=== PATIENT | male | born 1955 | race African-American/Black ===

== ENCOUNTER → 2017-03-14 | Outpatient (CLI) | payer OTHER ==
--- NOTE | 2017-03-14 11:44 | RAD ---
Examination: X-rays of the left hand. Clinical history: Pain in both hands. Technique: Three views of the left hand were obtained. Comparison: None available. Findings: No acute fracture, dislocation, or destructive bony lesion is noted. Moderate to severe osteoarthritic changes are noted at the 1st carpometacarpal joint. No soft tissue abnormality is noted. Impression: 1. No acute fracture or dislocation. 2. Moderate to severe osteoarthritic changes are noted at the 1st carpometacarpal joint. Reported By:
--- NOTE | 2017-03-14 11:45 | RAD ---
Examination: X-rays of the right hand. Clinical history: Pain in both hands. Technique: Three views of the right hand were obtained. Comparison: None available. Findings: No acute fracture, dislocation, or destructive bony lesion is noted. No arthropathy is noted. No soft tissue abnormality is noted. Impression: 1. Negative x-rays of the right hand. Reported By:
== END ==
LOC: RAD 10:10
PROVIDERS: ATTEND Internal Medicine
DX: Z02.71 Encounter for disability determination (principal)
CPT/HCPCS: 73130

== ENCOUNTER 2020-01-06 13:36 | Inpatient (IN) ==
[2020-01-06] MEDS ORDERED: ZOFRAN INJ 4 MG VIAL IVP PRN (14:05)
--- NOTE | 2020-01-06 16:17 | DR.H&P ---
H&P - History & Physical for Day of: H&P Date: 01/06/20 - Chief Complaint Chief Complaint: WEAKNESS, DIZZINESS, KAISER, DIFFICULTY SWALLOWING, WEIGHT LOSS - History of Present Illness History of Present Illness: PT IS 64 WM DIRECT ADMIT FROM DR GEOVANY DAVISON OFFICE WITH CO SYMPTOMATIC ANEMIA, KAISER, DIZZINESS, DYPHAGIA. PT HAS HAD CO UNINTENTIONAL WEIGHT LOSS, POOR APPETITE, CHOKING WHEN EATING. PT CO SEVERE DIZZINESS. PT HAD HGB 8.7 ON ANEMIA PANEL AND STARTED ON PPI THERAPY BID. PT HAS PMH OF HTN, BPH. PT ADMITTED FOR TREATMENT OF SYMPTOMATIC ANEMIA, DYSPHAGIA, WEAKNESS. - Past Medical History Past Medical History: Anxiety, GERD, Hypertension - Past Surgical History Surgical History: No History - Social History Does patient currently use any type of tobacco product: No Have you used tobacco products in the last 12 months: No Type of Tobacco Use: Cigarettes (6 CIGARETTES PER DAY) Does any household member use tobacco: No Alcohol Use: Occasionally Drug Use: None Risks, benefits, and alternatives of opioids discussed: Yes Prescription drug monitoring program results: PDMP reviewed and no concerns identified - Medications Home Medications: No Known Drug Allergies Allergy (Verified 01/06/20 16:12) CONTINUE taking the following medications aspirin [Aspir-81] 81 mg PO DAILY 01/06/20 [History] atorvastatin [Lipitor] 20 mg PO DAILY 01/06/20 [History] carvedilol 3.125 mg PO BID 01/06/20 [History] glucosamine-chondroitin [Osteo Bi-Flex] 2 tab PO DAILY 01/06/20 [History] lisinopril-hydrochlorothiazide [Zestoretic] 1 tab PO DAILY 01/06/20 [History] pantoprazole [Protonix] 40 mg PO HS 01/06/20 [History] - Review of Systems Constitutional: Weakness, Malaise Eyes: No Symptoms Reported ENT: No Symptoms Reported Respiratory: SOB with Excertion Cardiovascular: No Symptoms Reported Gastrointestinal: Nausea, Vomiting, Other (CHOKING, DIFFICULTY SWALLOWING) Genitourinary: No Symptoms Reported Skin: No Symptoms Reported Neurological: Weakness, Other (DIZZINESS) Oriented: Normal Eyes: Normal Ear: Normal Nose: Normal Throat: Dry Respiratory: RLL Diminished, LLL Diminished Cardiovascular: Normal. negative: Edema : Normal Auscultation: Bowel Sounds: Normal Palpation: Normal Tenderness: Epigastric Skin: Decreased Turgur Musculoskeletal: Back:Lumbar Psychiatric: Normal Mood Description: Calm Speech Pattern: Clear, Appropriate - Assessment/Plan (1) Symptomatic anemia Status: Acute Plan: ADMIT, TYPE AND CROSS MATCH, OCCULT STOOL. ADMISSION LABS CBC CMP UA. ANEMIA PANEL OBTAINED IN OFFICE LAST WEEK. EKG AND CXR ON ADMISSION. CT ABD PELVIS WITH CONTRAST, NPO AFTER MIDNIGHT. GI CONSULT, HOLD ASA AND NSAIDS. PROTONIX IV BID (2) Dysphagia Status: Acute (3) Unintentional weight loss Status: Acute (4) Hypertension Status: Acute (5) BPH (benign prostatic hyperplasia) Status: Acute - Allergies Allergies/Adverse Reactions: Allergies Allergy/AdvReac Type Severity Reaction Status Date / Time No Known Drug Allergies Allergy Verified 01/06/20 16:12
[2020-01-06 16:23] LABS: BASOPHILS % (AUTO) 0.7 % (0.2-1.0); EOSINOPHILS # (AUTO) 0.2 x10^3/uL (0.0-0.2); EOSINOPHILS % (AUTO) 2.9 % (0.9-2.9); HEMATOCRIT 23.5 % (42.0-54.0); HEMOGLOBIN 7.9 g/dL (13.5-18.0); LYMPHOCYTES # (AUTO) 0.9 X10^3/uL (1.3-2.9); LYMPHOCYTES % (AUTO) 16.8 % (21.0-51.0); MEAN CORPUSCULAR HEMOGLOBIN 30.8 pg (27.0-34.0); MEAN CORPUSCULAR HGB CONC 33.7 g/dL (33.0-35.0); MEAN CORPUSCULAR VOLUME 91.5 fL (80.0-100.0); MEAN PLATELET VOLUME 8.2 fL (7.4-11.0); MONOCYTES # (AUTO) 0.3 x10^3/uL (0.3-0.8); NEUTROPHILS # (AUTO) 4.1 x10^3/uL (2.2-4.8); NEUTROPHILS % (AUTO) 74.6 % (42.0-75.0); PLATELET COUNT 220 X10^3/uL (150.0-450.0); RED BLOOD COUNT 2.57 X10^6/uL (4.7-6.0); RED CELL DISTRIBUTION WIDTH 16.5 % (11.6-16.5); WHITE BLOOD COUNT 5.5 X10^3/uL (3.6-10.0)
[2020-01-06 16:31] LABS: ALANINE AMINOTRANSFERASE 27 Units/L (12-78); ALBUMIN 3.7 g/dL (3.4-5.0); ALKALINE PHOSPHATASE 65 Units/L (46-116); ASPARTATE AMINO TRANSFERASE 37 Units/L (15-37); BLOOD UREA NITROGEN 21 mg/dL (7-18); CALCIUM 9.2 mg/dL (8.5-10.1); CARBON DIOXIDE 23.2 mmol/L (21-32); CHLORIDE 104 mmol/L (98-107); COR NA(FOR HYPERGLY) 136 mmol/L (136-145); CREATININE 1.78 mg/dL (0.70-1.30); SODIUM 135 mmol/L (136-145); TOTAL PROTEIN 9.8 g/dL (6.4-8.2); eGFR NON BLACK RACES 41 (>60)
[2020-01-06 16:41] LABS: HYPOCHROMASIA SLIGHT; PLATELET MORPHOLOGY COMMENT NORMAL (NORMAL)
[2020-01-06] MEDS ORDERED: NS 500 ML IV 500 ML IV ONE (16:47)
[2020-01-06] MEDS ORDERED: DULCOLAX SUPPOSITORY 10 MG RECTAL ONE (17:08)
--- NOTE | 2020-01-06 17:11 | DR.CONSULT ---
Consult - Consultation for Day of: Date: 01/06/20 - Chief Complaint Chief Complaint: Patient referred for anemia.Patient with complaints of constipation. - History of Present Illness History of Present Illness: Patient is a 64 yo male who was referred for anemia.Patient with complaints of constipation last BM on monday that he had to force out. Patient denies dysphagia, dyspepsia, nausea, vomiting, abdominal pain, diarrhea, melena and hematochezia. Patient had a colon [address] Cintron for routine screening. has never had an EGD. hgb 7.9, hct 23.5, Plt 220, BUN 21, Creatinine 1.78 - Past Medical History Past Medical History: Anxiety, Coronary Artery Disease, GERD, Hypertension - Past Surgical History Surgical History: No History - Social History Does patient currently use any type of tobacco product: No Have you used tobacco products in the last 12 months: No Type of Tobacco Use: Cigarettes (4 CIGARETTES PER DAY) Does any household member use tobacco: No Alcohol Use: DAILY ( 1 beer a day) Drug Use: None - Medications Home Medications: No Known Drug Allergies Allergy (Verified 01/06/20 16:12) CONTINUE taking the following medications aspirin [Aspir-81] 81 mg PO DAILY 01/06/20 [History] atorvastatin [Lipitor] 20 mg PO DAILY 01/06/20 [History] carvedilol 3.125 mg PO BID 01/06/20 [History] glucosamine-chondroitin [Osteo Bi-Flex] 2 tab PO DAILY 01/06/20 [History] lisinopril-hydrochlorothiazide [Zestoretic] 1 tab PO DAILY 01/06/20 [History] pantoprazole [Protonix] 40 mg PO HS 01/06/20 [History] - Review of Systems Gastrointestinal: See HPI, Constipation. denies: Nausea, Vomiting, Abdominal Pain, Diarrhea, Melena, Hematochezia, Other Oriented: Normal Eyes: Normal Ear: Normal Nose: Normal Throat: Normal Respiratory: Clear Throughout Cardiovascular: Normal Auscultation: Bowel Sounds: Normal Palpation: Normal, Other (no distention). negative: Spleen Enlarged, Liver Enlarged, Mass Pulsatile Tenderness: Normal (non tender) Skin: Normal Musculoskeletal: Normal Psychiatric: Normal Mood Description: Calm Affect: Normal Speech Pattern: Clear, Appropriate - Plan Plan: Assessment. 1. Anemia r/o GI loss. 2. Constipation. Plan. 1. Monitor Hgb, Transfuse as needed, EGD tomorrow colon on , cont protonix. 2. Dulcolax Supp. Plan reviewed with Dr. Marte - Allergies Allergies/Adverse Reactions: Allergies Allergy/AdvReac Type Severity Reaction Status Date / Time No Known Drug Allergies Allergy Verified 01/06/20 16:12
--- NOTE | 2020-01-06 17:19 | RAD ---
HISTORYACUTE ON CHRONIC SOBSTUDYCHEST, PA/LAT ADULTCOMPARISONNoneFINDINGSThe trachea is midline. The cardiac silhouette is unremarkable . The lungs are well expanded without focal infiltrate or effusion. The aortic knob is partially calcified.IMPRESSIONNo acute cardiopulmonary disease.Electronically signed by: ELLA LANGFORD (Jan 06, 2020 17:17:15)
[2020-01-06] MEDS: PROTONIX INJ 40 MG VIAL IVP SCH ×2 (17:24→20:32)
[2020-01-06] MEDS: NS 1000 ML 1,000 ML IV SCH (17:24)
[2020-01-06] MEDS ORDERED: DULCOLAX SUPPOSITORY 10 MG ONE (17:26)
[2020-01-06] MEDS ORDERED: PROVENTIL NEB TX 0.083% 2.5MG/ 3ML NEB PRN (17:35)
[2020-01-06 17:46] VITALS: BMI 19.4
[2020-01-06 18:34] LABS: BILIRUBIN,URINE NEGATIVE (NEGATIVE); BLOOD/HEMOGLOBIN,URINE NEGATIVE (NEGATIVE); GLUCOSE, URINE NEGATIVE (NEGATIVE); KETONES,URINE NEGATIVE (NEGATIVE); LEUKOCYTE ESTERASE ,URINE NEGATIVE (NEGATIVE); NITRITES,URINE NEGATIVE (NEGATIVE); PROTEIN,URINE 1+ (NEGATIVE); UROBILINOGEN,URINE NORMAL (NORMAL)
[2020-01-06 18:48] LABS: APPEARANCE,URINE CLEAR (CLEAR); COLOR,URINE YELLOW (YELLOW)
[2020-01-06 19:36] LABS: AMORPHOUS SEDIMENT,UR TRACE /HPF (NEGATIVE); BACTERIA,URINE NEGATIVE /HPF (NEGATIVE); RBC,URINE 0-2 /HPF (0-3); SQUAMOUS EPITHELIAL CELL,UR RARE /HPF (NEGATIVE)
[2020-01-06] MEDS: COREG TAB 3.125 MG PO SCH (20:32)
[2020-01-06] MEDS: BENADRYL INJ 50 MG VIAL IVP PRN (21:03)
[2020-01-06] MEDS: TYLENOL 325 MG TAB PO PRN (21:03)
--- NOTE | 2020-01-06 21:21 | CT ---
ABDOMEN/PELVIS WITH CONHISTORY: Abdominal pain and weight lossComparison:NoneTechnique:Multiple axial images of the abdomen and pelvis were obtained from the lung bases to the pubic symphysis following the administration of IV contrast. Dose reduction techniques including Automated Exposure Control (AEC) and adjustment of mA and kV were utlized.Findings:The heart is normal in size. There is no pericardial effusion. Fibrosis of the lung bases.Liver and spleen are normal in size, enhancement characteristics and contour. No focal lesions. The portal vein is patent. No ductal dilitation. Gallbladder is present. No calcified gallstones or gallbladder wall thickening. The pancreas is unremarkable. Adrenal glands are normal. Kidneys enhance symmetrically without hydronephrosis or nephrolithiasis.No bowel obstruction or inflammation. Normal appendix. No abnormal appearing mesenteric or retroperitoneal lymph nodes. . No free fluid or fluid collections. Liquid stool can be seen throughout the colon.The bladder is normal in appearance. Prostate unremarkable. No free fluid or abnormal pelvic lymph nodes.No aggressive osseous lesions.IMPRESSION:1. Liquid stool in the colon consistent with diarrheal illness. Correlate clinically.Electronically signed by: ALBA LOVING (Jan 06, 2020 21:19:14)
[2020-01-07 01:26] LABS: HEMATOCRIT 25.4 % (42.0-54.0); HEMOGLOBIN 8.4 g/dL (13.5-18.0)
[2020-01-07] MEDS: NS 1000 ML 1,000 ML IV SCH ×2 (05:17→20:22)
[2020-01-07 06:09] LABS: BASOPHILS % (AUTO) 0.6 % (0.2-1.0); EOSINOPHILS # (AUTO) 0.1 x10^3/uL (0.0-0.2); EOSINOPHILS % (AUTO) 3.6 % (0.9-2.9); HEMATOCRIT 24.1 % (42.0-54.0); HEMOGLOBIN 8.2 g/dL (13.5-18.0); LYMPHOCYTES # (AUTO) 1.6 X10^3/uL (1.3-2.9); LYMPHOCYTES % (AUTO) 40.6 % (21.0-51.0); MEAN CORPUSCULAR HEMOGLOBIN 30.2 pg (27.0-34.0); MEAN CORPUSCULAR HGB CONC 33.9 g/dL (33.0-35.0); MEAN PLATELET VOLUME 8.1 fL (7.4-11.0); MONOCYTES # (AUTO) 0.4 x10^3/uL (0.3-0.8); MONOCYTES % (AUTO) 9.6 % (0.0-13.0); NEUTROPHILS # (AUTO) 1.8 x10^3/uL (2.2-4.8); NEUTROPHILS % (AUTO) 45.6 % (42.0-75.0); PLATELET COUNT 174 X10^3/uL (150.0-450.0); RED BLOOD COUNT 2.71 X10^6/uL (4.7-6.0); RED CELL DISTRIBUTION WIDTH 16.7 % (11.6-16.5); WHITE BLOOD COUNT 3.9 X10^3/uL (3.6-10.0)
[2020-01-07 06:21] LABS: ALANINE AMINOTRANSFERASE 25 Units/L (12-78); ALBUMIN 3.2 g/dL (3.4-5.0); ALKALINE PHOSPHATASE 55 Units/L (46-116); ASPARTATE AMINO TRANSFERASE 31 Units/L (15-37); BLOOD UREA NITROGEN 18 mg/dL (7-18); CALCIUM 8.3 mg/dL (8.5-10.1); CARBON DIOXIDE 21.2 mmol/L (21-32); CHLORIDE 104 mmol/L (98-107); COR CA(FOR HYPOALB) 8.9 mg/dL (8.5-10.1); CREATININE 1.78 mg/dL (0.70-1.30); SODIUM 135 mmol/L (136-145); TOTAL PROTEIN 8.7 g/dL (6.4-8.2); eGFR NON BLACK RACES 41 (>60)
[2020-01-07] MEDS: PROTONIX INJ 40 MG VIAL IVP SCH ×2 (08:10→20:22)
[2020-01-07] MEDS ORDERED: STERILE WATER IRRIGATION IR ONE (10:31)
[2020-01-07] MEDS ORDERED: DIPRIVAN VIAL 20 ML ONE (13:28)
[2020-01-07] MEDS ORDERED: XYLOCAINE-MPF 1% ONE (13:28)
[2020-01-07] MEDS: COREG TAB 3.125 MG PO SCH ×2 (14:49→20:22)
[2020-01-07] MEDS: LIPITOR TAB 20 MG PO SCH (14:49)
[2020-01-07] MEDS ORDERED: NS 500 ML IV 500 ML IV ONE (18:12)
[2020-01-07] MEDS: BENADRYL INJ 50 MG VIAL IVP PRN (23:37)
[2020-01-07] MEDS: TYLENOL 325 MG TAB PO PRN (23:37)
[2020-01-08 06:46] LABS: BASOPHILS % (AUTO) 0.6 % (0.2-1.0); EOSINOPHILS # (AUTO) 0.2 x10^3/uL (0.0-0.2); EOSINOPHILS % (AUTO) 5.5 % (0.9-2.9); HEMATOCRIT 29.2 % (42.0-54.0); LYMPHOCYTES % (AUTO) 24.8 % (21.0-51.0); MEAN CORPUSCULAR HEMOGLOBIN 30.9 pg (27.0-34.0); MEAN CORPUSCULAR HGB CONC 34.2 g/dL (33.0-35.0); MEAN CORPUSCULAR VOLUME 90.2 fL (80.0-100.0); MEAN PLATELET VOLUME 7.7 fL (7.4-11.0); MONOCYTES # (AUTO) 0.3 x10^3/uL (0.3-0.8); MONOCYTES % (AUTO) 8.5 % (0.0-13.0); NEUTROPHILS # (AUTO) 2.5 x10^3/uL (2.2-4.8); NEUTROPHILS % (AUTO) 60.6 % (42.0-75.0); PLATELET COUNT 157 X10^3/uL (150.0-450.0); RED BLOOD COUNT 3.24 X10^6/uL (4.7-6.0); RED CELL DISTRIBUTION WIDTH 16.4 % (11.6-16.5); WHITE BLOOD COUNT 4.1 X10^3/uL (3.6-10.0)
[2020-01-08 07:08] LABS: ALANINE AMINOTRANSFERASE 19 Units/L (12-78); ALBUMIN 3.1 g/dL (3.4-5.0); ALKALINE PHOSPHATASE 50 Units/L (46-116); ASPARTATE AMINO TRANSFERASE 29 Units/L (15-37); BLOOD UREA NITROGEN 13 mg/dL (7-18); CALCIUM 8.4 mg/dL (8.5-10.1); CARBON DIOXIDE 21.9 mmol/L (21-32); CHLORIDE 107 mmol/L (98-107); COR CA(FOR HYPOALB) 9.1 mg/dL (8.5-10.1); CREATININE 1.58 mg/dL (0.70-1.30); SODIUM 139 mmol/L (136-145); TOTAL PROTEIN 8.2 g/dL (6.4-8.2); eGFR NON BLACK RACES 47 (>60)
[2020-01-08] MEDS: LIPITOR TAB 20 MG PO SCH (09:44)
[2020-01-08] MEDS: COREG TAB 3.125 MG PO SCH ×2 (09:44→21:20)
[2020-01-08] MEDS: PROTONIX INJ 40 MG VIAL IVP SCH ×2 (09:44→21:20)
[2020-01-08] MEDS: DULCOLAX TAB EC 5 MG PO SCH ×2 (09:45→21:19)
[2020-01-08] MEDS: TYLENOL 325 MG TAB PO PRN ×3 (09:51→21:20)
[2020-01-08] MEDS: NS 1000 ML 1,000 ML IV SCH ×3 (10:58→23:56)
[2020-01-08] MEDS ORDERED: MIRALAX POWDER (255 GRAMS BTL) PO NR (15:00)
[2020-01-08] MEDS ORDERED: DULCOLAX TAB EC 5 MG PO SCH (21:00)
[2020-01-09 06:46] LABS: BASOPHILS % (AUTO) 0.5 % (0.2-1.0); EOSINOPHILS # (AUTO) 0.2 x10^3/uL (0.0-0.2); EOSINOPHILS % (AUTO) 5.3 % (0.9-2.9); HEMATOCRIT 32.2 % (42.0-54.0); HEMOGLOBIN 10.8 g/dL (13.5-18.0); LYMPHOCYTES % (AUTO) 26.1 % (21.0-51.0); MEAN CORPUSCULAR HEMOGLOBIN 30.2 pg (27.0-34.0); MEAN CORPUSCULAR HGB CONC 33.5 g/dL (33.0-35.0); MEAN CORPUSCULAR VOLUME 90.1 fL (80.0-100.0); MEAN PLATELET VOLUME 7.8 fL (7.4-11.0); MONOCYTES # (AUTO) 0.4 x10^3/uL (0.3-0.8); MONOCYTES % (AUTO) 10.8 % (0.0-13.0); NEUTROPHILS # (AUTO) 2.3 x10^3/uL (2.2-4.8); NEUTROPHILS % (AUTO) 57.3 % (42.0-75.0); PLATELET COUNT 158 X10^3/uL (150.0-450.0); RED BLOOD COUNT 3.57 X10^6/uL (4.7-6.0); RED CELL DISTRIBUTION WIDTH 16.2 % (11.6-16.5)
[2020-01-09 07:03] LABS: ALANINE AMINOTRANSFERASE 17 Units/L (12-78); ALBUMIN 3.2 g/dL (3.4-5.0); ALKALINE PHOSPHATASE 55 Units/L (46-116); ASPARTATE AMINO TRANSFERASE 32 Units/L (15-37); BLOOD UREA NITROGEN 11 mg/dL (7-18); CALCIUM 8.6 mg/dL (8.5-10.1); CARBON DIOXIDE 16.2 mmol/L (21-32); CHLORIDE 108 mmol/L (98-107); COR CA(FOR HYPOALB) 9.2 mg/dL (8.5-10.1); CREATININE 1.57 mg/dL (0.70-1.30); SODIUM 137 mmol/L (136-145); TOTAL PROTEIN 8.8 g/dL (6.4-8.2); eGFR NON BLACK RACES 47 (>60)
[2020-01-09] MEDS ORDERED: DIPRIVAN VIAL 20 ML ONE (09:41)
[2020-01-09] MEDS ORDERED: STERILE WATER IRRIGATION IR ONE (10:58)
[2020-01-09] MEDS: COREG TAB 3.125 MG PO SCH ×2 (11:53→21:28)
[2020-01-09] MEDS: PROTONIX INJ 40 MG VIAL IVP SCH ×2 (11:54→21:31)
[2020-01-09] MEDS: LIPITOR TAB 20 MG PO SCH (11:54)
[2020-01-09] MEDS: DULCOLAX TAB EC 5 MG PO SCH ×2 (11:55→21:28)
[2020-01-09] MEDS: NS 1000 ML 1,000 ML IV SCH (15:39)
[2020-01-09] MEDS: NICOTINE PATCH TD SCH (18:05)
[2020-01-09] MEDS: TYLENOL 325 MG TAB PO PRN (21:30)
[2020-01-10 06:22] LABS: BASOPHILS % (AUTO) 0.4 % (0.2-1.0); EOSINOPHILS # (AUTO) 0.2 x10^3/uL (0.0-0.2); EOSINOPHILS % (AUTO) 3.8 % (0.9-2.9); HEMATOCRIT 31.9 % (42.0-54.0); HEMOGLOBIN 10.7 g/dL (13.5-18.0); LYMPHOCYTES # (AUTO) 1.1 X10^3/uL (1.3-2.9); MEAN CORPUSCULAR HEMOGLOBIN 30.2 pg (27.0-34.0); MEAN CORPUSCULAR HGB CONC 33.6 g/dL (33.0-35.0); MEAN PLATELET VOLUME 8.6 fL (7.4-11.0); MONOCYTES # (AUTO) 0.3 x10^3/uL (0.3-0.8); MONOCYTES % (AUTO) 5.8 % (0.0-13.0); NEUTROPHILS # (AUTO) 3.8 x10^3/uL (2.2-4.8); PLATELET COUNT 161 X10^3/uL (150.0-450.0); RED BLOOD COUNT 3.55 X10^6/uL (4.7-6.0); RED CELL DISTRIBUTION WIDTH 16.4 % (11.6-16.5); WHITE BLOOD COUNT 5.5 X10^3/uL (3.6-10.0)
[2020-01-10 06:42] LABS: ALANINE AMINOTRANSFERASE 22 Units/L (12-78); ALKALINE PHOSPHATASE 56 Units/L (46-116); ASPARTATE AMINO TRANSFERASE 31 Units/L (15-37); BLOOD UREA NITROGEN 12 mg/dL (7-18); CALCIUM 8.1 mg/dL (8.5-10.1); CARBON DIOXIDE 18.3 mmol/L (21-32); CHLORIDE 107 mmol/L (98-107); COR CA(FOR HYPOALB) 8.9 mg/dL (8.5-10.1); CREATININE 1.78 mg/dL (0.70-1.30); SODIUM 138 mmol/L (136-145); TOTAL PROTEIN 8.3 g/dL (6.4-8.2); eGFR NON BLACK RACES 41 (>60)
[2020-01-10] MEDS: NICOTINE PATCH TD SCH (09:26)
[2020-01-10] MEDS: DULCOLAX TAB EC 5 MG PO SCH ×2 (09:27→20:23)
[2020-01-10] MEDS: LIPITOR TAB 20 MG PO SCH (09:27)
[2020-01-10] MEDS: COREG TAB 3.125 MG PO SCH ×2 (09:27→20:23)
[2020-01-10] MEDS: PROTONIX INJ 40 MG VIAL IVP SCH ×2 (09:27→20:23)
--- NOTE | 2020-01-10 14:58 | RAD ---
HISTORYFellSTUDYLumbar spine three viewsCOMPARISONNoneFINDINGSNormal curvature, segmentation and alignment. There is no evidence for fracture, subluxation, pedicle erosion or sacroiliac abnormality. There are small marginal osteophytes at several disc levels. Increased sclerosis of the posterior apophyseal facet joints is noted.IMPRESSIONNo acute injury identified. Degenerative spondylosis and apophyseal facet arthropathy.Electronically signed by: CINDA CRAWLEY (Jan 10, 2020 14:57:20)
--- NOTE | 2020-01-10 15:04 | RAD ---
HISTORYFell with hip painSTUDYBilateral hips, two viewsCOMPARISONNoneFINDINGSAP views of the pelvis were obtained with hips in neutral and abduction lateral position. There is no evidence for fracture or dislocation on either side. The femoral heads are symmetric and in normal position. The joint spaces are unremarkable.IMPRESSIONNo hip abnormality identified.Electronically signed by: CINDA CRAWLEY (Jan 10, 2020 15:02:40)
[2020-01-10] MEDS: NS 1000 ML 1,000 ML IV SCH (15:34)
[2020-01-10] MEDS: TYLENOL 325 MG TAB PO PRN (15:44)
--- NOTE | 2020-01-10 16:00 | CT ---
HISTORYPT HAD FALLSTUDYBRAIN W/O CONCOMPARISONNone availableTECHNIQUEMultiple helical images of the brain from the vertex to the occiput were obtained. Coronal and sagittal reformats were performed. Dose reduction techniques including Automated Exposure Control (AEC) and adjustment of mA and kV were utilized.FINDINGSMild generalized cerebral atrophy with moderate bilateral periventricular and deep white matter hypoattenuation. 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 Moderate ventricular dilatation involving the lateral ventricles and 3rd ventricle.Suspected small left supraorbital frontal scalp contusion.[No acute intraparenchymal hemorrhage or mass can be identified.] [No extra-axial fluid collections are seen.] [No alteration in the attenuation of the brain parenchyma can be identified to suggest acute or subacute ischemic change.] [The extracranial structures are grossly unremarkable.]IMPRESSIONSuspected small left supraorbital frontal scalp contusion, clinical correlation is needed.Generalized cerebral atrophy with bilateral periventricular and deep white matter hypoattenuation likely in setting of chronic microvascular ischemic changes. However, the degree of ventricular dilatation is greater than cerebral cortical involution and clinical correlation for a normal pressure hydrocephalus is recommended.Electronically signed by: ANUJ GERMAN (Jan 10, 2020 15:59:32)
[2020-01-10] MEDS: ZESTRIL TAB 10 MG PO SCH (20:23)
[2020-01-11] MEDS: TYLENOL 325 MG TAB PO PRN ×2 (05:31→21:10)
[2020-01-11 06:22] LABS: BASOPHILS % (AUTO) 0.4 % (0.2-1.0); EOSINOPHILS # (AUTO) 0.1 x10^3/uL (0.0-0.2); EOSINOPHILS % (AUTO) 1.2 % (0.9-2.9); HEMATOCRIT 33.7 % (42.0-54.0); HEMOGLOBIN 11.5 g/dL (13.5-18.0); LYMPHOCYTES # (AUTO) 1.3 X10^3/uL (1.3-2.9); LYMPHOCYTES % (AUTO) 17.7 % (21.0-51.0); MEAN CORPUSCULAR HEMOGLOBIN 31.2 pg (27.0-34.0); MEAN CORPUSCULAR HGB CONC 34.3 g/dL (33.0-35.0); MEAN PLATELET VOLUME 8.8 fL (7.4-11.0); MONOCYTES # (AUTO) 0.6 x10^3/uL (0.3-0.8); NEUTROPHILS # (AUTO) 5.1 x10^3/uL (2.2-4.8); NEUTROPHILS % (AUTO) 71.7 % (42.0-75.0); PLATELET COUNT 152 X10^3/uL (150.0-450.0); RED CELL DISTRIBUTION WIDTH 16.3 % (11.6-16.5); WHITE BLOOD COUNT 7.2 X10^3/uL (3.6-10.0)
[2020-01-11 06:42] LABS: ALANINE AMINOTRANSFERASE 18 Units/L (12-78); ALBUMIN 3.2 g/dL (3.4-5.0); ALKALINE PHOSPHATASE 52 Units/L (46-116); ASPARTATE AMINO TRANSFERASE 28 Units/L (15-37); BLOOD UREA NITROGEN 14 mg/dL (7-18); CALCIUM 8.9 mg/dL (8.5-10.1); CARBON DIOXIDE 20.3 mmol/L (21-32); CHLORIDE 102 mmol/L (98-107); COR CA(FOR HYPOALB) 9.5 mg/dL (8.5-10.1); CREATININE 1.56 mg/dL (0.70-1.30); SODIUM 135 mmol/L (136-145); TOTAL PROTEIN 9.3 g/dL (6.4-8.2); eGFR NON BLACK RACES 48 (>60)
[2020-01-11] MEDS: DULCOLAX TAB EC 5 MG PO SCH ×2 (10:00→21:03)
[2020-01-11] MEDS: NICOTINE PATCH TD SCH (10:00)
[2020-01-11] MEDS: ZESTRIL TAB 10 MG PO SCH (10:45)
[2020-01-11] MEDS: LIPITOR TAB 20 MG PO SCH (10:45)
[2020-01-11] MEDS: PROTONIX INJ 40 MG VIAL IVP SCH ×2 (10:48→21:04)
[2020-01-11] MEDS: COREG TAB 3.125 MG PO SCH ×2 (10:53→21:03)
--- NOTE | 2020-01-11 11:41 | PCM.PROG ---
Progress Note Progress Note for Day of Date of Exam: 01/11/20 Subjective Subjective: Patient seen at bedside, no overnight events. at bedside reports that patient was about to be discharged yesterday but had a fall. She did not witness the fall but patient was getting out of bed and fell due to being dizzy. He was admitted for anemia and had a EGD and colonoscopy done d uring this visit. After the fall, states patient has been more sleepy and not as active as he was before. He has not gotten out of bed like he was doing earlier. CT head showed a small scalp contusion, Generalized cerebral atrophy with bilateral periventricular and deep white matter hypoattenuation likely in setting of chronic microvascular ischemic changes. However, the degree of ventricular dilatation is greater than cerebral cortical involution and clinical correlation for a normal pressure hydrocephalus is recommended. Lumbar XR showed degenerative arthropathy and hip XR was negative. Patient sleepy during exam, wakes up and follows instructions, no neurological deficit noted. 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 Will continue to monitor, neurochecks every [address] head if any further changes noted. Hgb stable at 11.5. interested in patient going to a rehab facility due to having recurrent falls and gait abnormalities. CT did mention concern for NPH. Patient would need further work-up including large volume LP for diagnosis and neurology referral. Past Medical Family Social History Past Med/Fam/Surg Hx: No changes since H&P Allergies: Allergies No Known Drug Allergies Allergy (Verified 01/06/20 16:12) Review of Systems ROS: No change since H&P Vital Signs and I&O's Vital Signs: Temperature 98.7 F Pulse Rate [Right Brachial] 75 Pulse Rate 69 Respiratory Rate 20 Blood Pressure [Right Arm] 130/70 O2 Sat by Pulse Oximetry 100 Intake and Output: Intake & Output 01/08/20 01/09/20 01/10/20 01/11/20 23:59 23:59 23:59 23:59 Intake Total 3790 / 3790 2650 / 2650 3498 / 3498 0 / 0 Output Total 1974 / 1974 250 / 250 1425 / 1425 300 / 300 Balance 1815 / 1815 2400 / 2400 2073 / 2072 -300 / -300 Physical Exam Oriented: Unable to test Eyes: Normal Ear: Normal Nose: Normal Respiratory: Normal Cardiovascular: Normal Auscultation: Bowel Sounds: Normal Tenderness: Normal (non tender) Skin: Normal Musculoskeletal: Normal Psychiatric: Normal Mood Description: Calm Affect: Normal Speech Pattern: Unclear Laboratory and Diagnostics Result Diagrams: 01/11/20 04:51 01/11/20 04:51 Labs: 01/06/20 17:30 Stool Stool Culture - Final 01/06/20 17:30 Stool - Final Laboratory WBC 7.2 X10^3/uL (3.6-10.0) 01/11/20 04:51 RBC 3.70 X10^6/uL (4.7-6.0) L 01/11/20 04:51 Hgb 11.5 g/dL (13.5-18.0) L 01/11/20 04:51 Hct 33.7 % (42.0-54.0) L 01/11/20 04:51 MCV 91.0 fL (80.0-100.0) 01/11/20 04:51 MCH 31.2 pg (27.0-34.0) 01/11/20 04:51 MCHC 34.3 g/dL (33.0-35.0) 01/11/20 04:51 RDW 16.3 % (11.6-16.5) 01/11/20 04:51 Plt Count 152 X10^3/uL (150.0-450.0) 01/11/20 04:51 Plt Count Comment Cancelled 01/07/20 05:15 MPV 8.8 fL (7.4-11.0) 01/11/20 04:51 Neut % (Auto) 71.7 % (42.0-75.0) 01/11/20 04:51 Lymph % (Auto) 17.7 % (21.0-51.0) L 01/11/20 04:51 [place] % (Auto) 9.0 % (0.0-13.0) 01/11/20 04:51 Eos % (Auto) 1.2 % (0.9-2.9) 01/11/20 04:51 Baso % (Auto) 0.4 % (0.2-1.0) 01/11/20 04:51 Neut # (Auto) 5.1 x10^3/uL (2.2-4.8) H 01/11/20 04:51 Lymph # (Auto) 1.3 X10^3/uL (1.3-2.9) 01/11/20 04:51 [place] # (Auto) 0.6 x10^3/uL (0.3-0.8) 01/11/20 04:51 Eos # (Auto) 0.1 x10^3/uL (0.0-0.2) 01/11/20 04:51 Baso # (Auto) 0.0 X10^3/uL (0.0-0.1) 01/11/20 04:51 Absolute Nucleated RBC 0.1 /100WBC 01/11/20 04:51 Total Counted Cancelled 01/07/20 05:15 Neutrophils % (Manual) Cancelled 01/07/20 05:15 Band Neutrophils % Cancelled 01/07/20 05:15 Lymphocytes % (Manual) Cancelled 01/07/20 05:15 Monocytes % (Manual) Cancelled 01/07/20 05:15 Eosinophils % (Manual) Cancelled 01/07/20 05:15 Basophils % (Manual) Cancelled 01/07/20 05:15 Metamyelocytes % Cancelled 01/07/20 05:15 Myelocytes % Cancelled 01/07/20 05:15 Promyelocytes % Cancelled 01/07/20 05:15 Nucleated RBCs Cancelled 01/07/20 05:15 Atypical Lymphocytes Cancelled 01/07/20 05:15 Blast Cells Cancelled 01/07/20 05:15 Smudge Cells Cancelled 01/07/20 05:15 Toxic Granulation Cancelled 01/07/20 05:15 Dohle Bodies Cancelled 01/07/20 05:15 Favian Rods Cancelled 01/07/20 05:15 Plt Clumps, EDTA Cancelled 01/07/20 05:15 Giant Platelets Cancelled 01/07/20 05:15 Plt Morphology Comment Cancelled 01/07/20 05:15 RBC Morphology Cancelled 01/07/20 05:15 Dimorphic RBCs Cancelled 01/07/20 05:15 Polychromasia Cancelled 01/07/20 05:15 Hypochromasia Cancelled 01/07/20 05:15 Poikilocytosis Cancelled 01/07/20 05:15 Basophilic Stippling Cancelled 01/07/20 05:15 Anisocytosis Cancelled 01/07/20 05:15 Microcytosis Cancelled 01/07/20 05:15 Macrocytosis Cancelled 01/07/20 05:15 Spherocytes Cancelled 01/07/20 05:15 Pappenheimer Bodies Cancelled 01/07/20 05:15 Sickle Cells Cancelled 01/07/20 05:15 Target Cells Cancelled 01/07/20 05:15 Tear Drop Cells Cancelled 01/07/20 05:15 Ovalocytes Cancelled 01/07/20 05:15 Stomatocytes Cancelled 01/07/20 05:15 Helmet Cells Cancelled 01/07/20 05:15 Jara-Sewaren Bodies Cancelled 01/07/20 05:15 [place] Rings Cancelled 01/07/20 05:15 Wm Cells Cancelled 01/07/20 05:15 Crenated Cell Cancelled 01/07/20 05:15 Acanthocytes (Spur) Cancelled 01/07/20 05:15 Rouleaux Cancelled 01/07/20 05:15 Schistocytes Cancelled 01/07/20 05:15 Sodium 135 mmol/L (136-145) L 01/11/20 04:51 Corrected Sodium TNP 01/11/20 04:51 Potassium 3.8 mmol/L (3.5-5.1) 01/11/20 04:51 Chloride 102 mmol/L (98-107) 01/11/20 04:51 Carbon Dioxide 20.3 mmol/L (21-32) L 01/11/20 04:51 BUN 14 mg/dL (7-18) 01/11/20 04:51 Creatinine 1.56 mg/dL (0.70-1.30) H 01/11/20 04:51 Est GFR (MDRD) Af Amer 58 (>60) L 01/11/20 04:51 Est GFR (MDRD) Non-Af 48 (>60) L 01/11/20 04:51 Glucose 102 mg/dL (65-99) H 01/11/20 04:51 Calcium 8.9 mg/dL (8.5-10.1) 01/11/20 04:51 Corrected Calcium 9.5 mg/dL (8.5-10.1) 01/11/20 04:51 Total Bilirubin 0.50 mg/dL (0.2-1.0) 01/11/20 04:51 AST 28 Units/L (15-37) 01/11/20 04:51 ALT 18 Units/L (12-78) 01/11/20 04:51 Alkaline Phosphatase 52 Units/L (46-116) 01/11/20 04:51 Total Protein 9.3 g/dL (6.4-8.2) H 01/11/20 04:51 Albumin 3.2 g/dL (3.4-5.0) L 01/11/20 04:51 Globulin 6.1 g/dL (2.5-4.5) H 01/11/20 04:51 Albumin/Globulin Ratio 0.5 Ratio (1.1-2.1) L 01/11/20 04:51 Specimen Type Clean catch urine 01/06/20 17:30 Urine Color Yellow (YELLOW) 01/06/20 17:30 Urine Appearance Clear (CLEAR) 01/06/20 17:30 Urine pH 5.0 (5.0 - 8.0) 01/06/20 17:30 Ur Specific [place] 1.020 (1.000-1.030) 01/06/20 17:30 Urine Protein 1+ (NEGATIVE) 01/06/20 17:30 Urine Glucose (UA) Negative (NEGATIVE) 01/06/20 17:30 Urine Ketones Negative (NEGATIVE) 01/06/20 17:30 Urine Occult Blood Negative (NEGATIVE) 01/06/20 17:30 Urine Nitrite Negative (NEGATIVE) 01/06/20 17:30 Urine Bilirubin Negative (NEGATIVE) 01/06/20 17:30 Urine Urobilinogen Normal (NORMAL) 01/06/20 17:30 Ur Leukocyte Esterase Negative (NEGATIVE) 01/06/20 17:30 Urine RBC 0-2 /HPF (0-3) 01/06/20 17:30 Urine WBC 0-2 /HPF (0-5) 01/06/20 17:30 Ur Squamous Epith Cells Rare /HPF (NEGATIVE) 01/06/20 17:30 Amorphous Sediment Trace /HPF (NEGATIVE) 01/06/20 17:30 Urine Bacteria Negative /HPF (NEGATIVE) 01/06/20 17:30 Ur Culture Indicated? No/not indicated 01/06/20 17:30 Stool Description 250g. brown/formed 01/06/20 17:30 Stl Occult Blood (IFOB) Negative (NEGATIVE) 01/06/20 17:30 Stool for White Cells Negative (NEGATIVE) 01/06/20 17:30 Stl C. diff Tox B Gene Negative (NEGATIVE) 01/06/20 17:30 Stl C. diff [id number] Negative (NEGATIVE) 01/06/20 17:30 Stool H. pylori Ag Negative (NEGATIVE) 01/06/20 17:30 Tissue Pathology To follow 01/09/20 09:55 Blood Type O NEGATIVE 01/06/20 16:03 Antibody Screen Negative 01/06/20 16:03 Crossmatch See Detail 01/06/20 16:03 Plan (1) Symptomatic anemia: Status: Acute (2) Dysphagia: Status: Acute Qualifiers: Dysphagia type: unspecified Qualified Code(s): R13.10 - Dysphagia, unspecified (3) Unintentional weight loss: Status: Acute (4) Hypertension: Status: Acute Qualifiers: Hypertension type: essential hypertension Qualified Code(s): I10 - Essential (primary) hypertension (5) BPH (benign prostatic hyperplasia): Status: Acute Qualifiers: Lower urinary tract symptom presence: unspecified whether lower urinary tract symptoms present Qualified Code(s): N40.0 - Benign prostatic hyperplasia without lower urinary tract symptoms
[2020-01-11] MEDS: NS 1000 ML 1,000 ML IV SCH ×3 (17:43→21:05)
[2020-01-12 06:16] LABS: BASOPHILS % (AUTO) 0.6 % (0.2-1.0); EOSINOPHILS # (AUTO) 0.2 x10^3/uL (0.0-0.2); EOSINOPHILS % (AUTO) 3.3 % (0.9-2.9); HEMATOCRIT 32.4 % (42.0-54.0); HEMOGLOBIN 10.9 g/dL (13.5-18.0); LYMPHOCYTES # (AUTO) 1.4 X10^3/uL (1.3-2.9); LYMPHOCYTES % (AUTO) 27.8 % (21.0-51.0); MEAN CORPUSCULAR HEMOGLOBIN 30.4 pg (27.0-34.0); MEAN CORPUSCULAR HGB CONC 33.5 g/dL (33.0-35.0); MEAN CORPUSCULAR VOLUME 90.7 fL (80.0-100.0); MEAN PLATELET VOLUME 8.4 fL (7.4-11.0); MONOCYTES # (AUTO) 0.5 x10^3/uL (0.3-0.8); MONOCYTES % (AUTO) 8.9 % (0.0-13.0); NEUTROPHILS % (AUTO) 59.4 % (42.0-75.0); PLATELET COUNT 146 X10^3/uL (150.0-450.0); RED BLOOD COUNT 3.57 X10^6/uL (4.7-6.0); RED CELL DISTRIBUTION WIDTH 16.3 % (11.6-16.5); WHITE BLOOD COUNT 5.1 X10^3/uL (3.6-10.0)
[2020-01-12 06:24] LABS: BLOOD UREA NITROGEN 19 mg/dL (7-18); CALCIUM 8.5 mg/dL (8.5-10.1); CARBON DIOXIDE 20.6 mmol/L (21-32); CHLORIDE 106 mmol/L (98-107); CREATININE 1.71 mg/dL (0.70-1.30); SODIUM 138 mmol/L (136-145); eGFR NON BLACK RACES 43 (>60)
[2020-01-12] MEDS: NICOTINE PATCH TD SCH (09:20)
[2020-01-12] MEDS: ZESTRIL TAB 10 MG PO SCH (09:21)
[2020-01-12] MEDS: COREG TAB 3.125 MG PO SCH ×2 (09:21→20:43)
[2020-01-12] MEDS: DULCOLAX TAB EC 5 MG PO SCH ×2 (09:21→20:43)
[2020-01-12] MEDS: LIPITOR TAB 20 MG PO SCH (09:21)
[2020-01-12] MEDS: PROTONIX INJ 40 MG VIAL IVP SCH ×2 (09:22→20:43)
--- NOTE | 2020-01-12 12:21 | PCM.PROG ---
Progress Note Progress Note for Day of Date of Exam: 01/12/20 Subjective Subjective: Patient seen at bedside, no overnight events. Patient doing a lot better today. He is alert and oriented x 3, able to answer questions appropriately. reports patient has been more active since yesterday, talking and ambulating in the room, eating well. She states he is still weak and unsteady when he walks. Patient had been admitted due to anemia had a EGD and colonoscopy done during this visit. He had a fall on Monday in the hospital CT head showed a small scalp contusion, generalized cerebral atrophy, ventricular dilatation that is greater than cerebral cortical involution and clinical correlation for a normal pressure hydrocephalus is recommended. Lumbar XR showed degenerative arthropathy and hip XR was negative. Hgb stable at 10.9, no active bleeding. Discussed CT head findings with and also possible further work-up for NPH. Will need outpatient neurology referral on discharge. interested for the patient to go to rehab for further PT. Past Medical Family Social History Past Med/Fam/Surg Hx: No changes since H&P Allergies: Allergies No Known Drug Allergies Allergy (Verified 01/06/20 16:12) Review of Systems ROS: No change since H&P Vital Signs and I&O's Vital Signs: Temperature 97.6 F Pulse Rate [Right Brachial] 56 Pulse Rate 79 Respiratory Rate 18 Blood Pressure [Left Arm] 117/52 Blood Pressure [Right Arm] 104/68 O2 Sat by Pulse Oximetry 100 Intake and Output: Intake & Output 01/09/20 01/10/20 01/11/20 01/13/20 23:59 23:59 23:59 00:59 Intake Total 2650 / 2650 3498 / 3498 1120 / 1120 0 / 0 Output Total 250 / 250 1425 / 1425 300 / 300 Balance 2400 / 2400 2073 / 2073 820 / 820 0 / 0 Physical Exam Oriented: Normal Ear: Normal Nose: Normal Throat: Normal Respiratory: Normal Cardiovascular: Normal Auscultation: Bowel Sounds: Normal Tenderness: Normal (non tender) Skin: Normal Musculoskeletal: Normal Psychiatric: Normal Mood Description: Calm Affect: Normal Speech Pattern: Clear Laboratory and Diagnostics Result Diagrams: 01/12/20 05:12 01/12/20 05:12 Labs: 01/06/20 17:30 Stool Stool Culture - Final 01/06/20 17:30 Stool - Final Laboratory WBC 5.1 X10^3/uL (3.6-10.0) 01/12/20 05:12 RBC 3.57 X10^6/uL (4.7-6.0) L 01/12/20 05:12 Hgb 10.9 g/dL (13.5-18.0) L 01/12/20 05:12 Hct 32.4 % (42.0-54.0) L 01/12/20 05:12 MCV 90.7 fL (80.0-100.0) 01/12/20 05:12 MCH 30.4 pg (27.0-34.0) 01/12/20 05:12 MCHC 33.5 g/dL (33.0-35.0) 01/12/20 05:12 RDW 16.3 % (11.6-16.5) 01/12/20 05:12 Plt Count 146 X10^3/uL (150.0-450.0) L 01/12/20 05:12 Plt Count Comment Cancelled 01/07/20 05:15 MPV 8.4 fL (7.4-11.0) 01/12/20 05:12 Neut % (Auto) 59.4 % (42.0-75.0) 01/12/20 05:12 Lymph % (Auto) 27.8 % (21.0-51.0) 01/12/20 05:12 [place] % (Auto) 8.9 % (0.0-13.0) 01/12/20 05:12 Eos % (Auto) 3.3 % (0.9-2.9) H 01/12/20 05:12 Baso % (Auto) 0.6 % (0.2-1.0) 01/12/20 05:12 Neut # (Auto) 3.0 x10^3/uL (2.2-4.8) 01/12/20 05:12 Lymph # (Auto) 1.4 X10^3/uL (1.3-2.9) 01/12/20 05:12 [place] # (Auto) 0.5 x10^3/uL (0.3-0.8) 01/12/20 05:12 Eos # (Auto) 0.2 x10^3/uL (0.0-0.2) 01/12/20 05:12 Baso # (Auto) 0.0 X10^3/uL (0.0-0.1) 01/12/20 05:12 Absolute Nucleated RBC 0.1 /100WBC 01/12/20 05:12 Total Counted Cancelled 01/07/20 05:15 Neutrophils % (Manual) Cancelled 01/07/20 05:15 Band Neutrophils % Cancelled 01/07/20 05:15 Lymphocytes % (Manual) Cancelled 01/07/20 05:15 Monocytes % (Manual) Cancelled 01/07/20 05:15 Eosinophils % (Manual) Cancelled 01/07/20 05:15 Basophils % (Manual) Cancelled 01/07/20 05:15 Metamyelocytes % Cancelled 01/07/20 05:15 Myelocytes % Cancelled 01/07/20 05:15 Promyelocytes % Cancelled 01/07/20 05:15 Nucleated RBCs Cancelled 01/07/20 05:15 Atypical Lymphocytes Cancelled 01/07/20 05:15 Blast Cells Cancelled 01/07/20 05:15 Smudge Cells Cancelled 01/07/20 05:15 Toxic Granulation Cancelled 01/07/20 05:15 Dohle Bodies Cancelled 01/07/20 05:15 Favian Rods Cancelled 01/07/20 05:15 Plt Clumps, EDTA Cancelled 01/07/20 05:15 Giant Platelets Cancelled 01/07/20 05:15 Plt Morphology Comment Cancelled 01/07/20 05:15 RBC Morphology Cancelled 01/07/20 05:15 Dimorphic RBCs Cancelled 01/07/20 05:15 Polychromasia Cancelled 01/07/20 05:15 Hypochromasia Cancelled 01/07/20 05:15 Poikilocytosis Cancelled 01/07/20 05:15 Basophilic Stippling Cancelled 01/07/20 05:15 Anisocytosis Cancelled 01/07/20 05:15 Microcytosis Cancelled 01/07/20 05:15 Macrocytosis Cancelled 01/07/20 05:15 Spherocytes Cancelled 01/07/20 05:15 Pappenheimer Bodies Cancelled 01/07/20 05:15 Sickle Cells Cancelled 01/07/20 05:15 Target Cells Cancelled 01/07/20 05:15 Tear Drop Cells Cancelled 01/07/20 05:15 Ovalocytes Cancelled 01/07/20 05:15 Stomatocytes Cancelled 01/07/20 05:15 Helmet Cells Cancelled 01/07/20 05:15 [place] Bodies Cancelled 01/07/20 05:15 [employer] Rings Cancelled 01/07/20 05:15 [place] Cells Cancelled 01/07/20 05:15 Crenated Cell Cancelled 01/07/20 05:15 Acanthocytes (Spur) Cancelled 01/07/20 05:15 Rouleaux Cancelled 01/07/20 05:15 Schistocytes Cancelled 01/07/20 05:15 Sodium 138 mmol/L (136-145) 01/12/20 05:12 Corrected Sodium TNP 01/12/20 05:12 Potassium 3.6 mmol/L (3.5-5.1) 01/12/20 05:12 Chloride 106 mmol/L (98-107) 01/12/20 05:12 Carbon Dioxide 20.6 mmol/L (21-32) L 01/12/20 05:12 BUN 19 mg/dL (7-18) H 01/12/20 05:12 Creatinine 1.71 mg/dL (0.70-1.30) H 01/12/20 05:12 Est GFR (MDRD) Af Amer 52 (>60) L 01/12/20 05:12 Est GFR (MDRD) Non-Af 43 (>60) L 01/12/20 05:12 Glucose 102 mg/dL (65-99) H 01/12/20 05:12 Calcium 8.5 mg/dL (8.5-10.1) 01/12/20 05:12 Corrected Calcium 9.5 mg/dL (8.5-10.1) 01/11/20 04:51 Total Bilirubin 0.50 mg/dL (0.2-1.0) 01/11/20 04:51 AST 28 Units/L (15-37) 01/11/20 04:51 ALT 18 Units/L (12-78) 01/11/20 04:51 Alkaline Phosphatase 52 Units/L (46-116) 01/11/20 04:51 Total Protein 9.3 g/dL (6.4-8.2) H 01/11/20 04:51 Albumin 3.2 g/dL (3.4-5.0) L 01/11/20 04:51 Globulin 6.1 g/dL (2.5-4.5) H 01/11/20 04:51 Albumin/Globulin Ratio 0.5 Ratio (1.1-2.1) L 01/11/20 04:51 Specimen Type Clean catch urine 01/06/20 17:30 Urine Color Yellow (YELLOW) 01/06/20 17:30 Urine Appearance Clear (CLEAR) 01/06/20 17:30 Urine pH 5.0 (5.0 - 8.0) 01/06/20 17:30 Ur Specific [place] 1.020 (1.000-1.030) 01/06/20 17:30 Urine Protein 1+ (NEGATIVE) 01/06/20 17:30 Urine Glucose (UA) Negative (NEGATIVE) 01/06/20 17:30 Urine Ketones Negative (NEGATIVE) 01/06/20 17:30 Urine Occult Blood Negative (NEGATIVE) 01/06/20 17:30 Urine Nitrite Negative (NEGATIVE) 01/06/20 17:30 Urine Bilirubin Negative (NEGATIVE) 01/06/20 17:30 Urine Urobilinogen Normal (NORMAL) 01/06/20 17:30 Ur Leukocyte Esterase Negative (NEGATIVE) 01/06/20 17:30 Urine RBC 0-2 /HPF (0-3) 01/06/20 17:30 Urine WBC 0-2 /HPF (0-5) 01/06/20 17:30 Ur Squamous Epith Cells Rare /HPF (NEGATIVE) 01/06/20 17:30 Amorphous Sediment Trace /HPF (NEGATIVE) 01/06/20 17:30 Urine Bacteria Negative /HPF (NEGATIVE) 01/06/20 17:30 Ur Culture Indicated? No/not indicated 01/06/20 17:30 Stool Description 250g. brown/formed 01/06/20 17:30 Stl Occult Blood (IFOB) Negative (NEGATIVE) 01/06/20 17:30 Stool for White Cells Negative (NEGATIVE) 01/06/20 17:30 Stl C. diff Tox B Gene Negative (NEGATIVE) 01/06/20 17:30 Stl C. diff 027-NAP1-BI Negative (NEGATIVE) 01/06/20 17:30 Stool H. pylori Ag Negative (NEGATIVE) 01/06/20 17:30 Tissue Pathology To follow 01/09/20 09:55 Blood Type O NEGATIVE 01/06/20 16:03 Antibody Screen Negative 01/06/20 16:03 Crossmatch See Detail 01/06/20 16:03 Plan (1) Symptomatic anemia: Status: Acute Plan: (2) Dysphagia: Status: Acute Qualifiers: Dysphagia type: unspecified Qualified Code(s): R13.10 - Dysphagia, unspecified (3) Unintentional weight loss: Status: Acute (4) Hypertension: Status: Acute Qualifiers: Hypertension type: essential hypertension Qualified Code(s): I10 - Essential (primary) hypertension (5) BPH (benign prostatic hyperplasia): Status: Acute Qualifiers: Lower urinary tract symptom presence: unspecified whether lower urinary tract symptoms present Qualified Code(s): N40.0 - Benign prostatic hyperplasia without lower urinary tract symptoms Narrative Support Text:
[2020-01-13] MEDS: NS 1000 ML 1,000 ML IV SCH (02:45)
[2020-01-13 05:52] LABS: BLOOD UREA NITROGEN 17 mg/dL (7-18); CALCIUM 8.3 mg/dL (8.5-10.1); CARBON DIOXIDE 19.4 mmol/L (21-32); CHLORIDE 108 mmol/L (98-107); CREATININE 1.58 mg/dL (0.70-1.30); SODIUM 139 mmol/L (136-145); eGFR NON BLACK RACES 47 (>60)
[2020-01-13 05:58] LABS: BASOPHILS % (AUTO) 0.5 % (0.2-1.0); EOSINOPHILS # (AUTO) 0.2 x10^3/uL (0.0-0.2); EOSINOPHILS % (AUTO) 4.1 % (0.9-2.9); HEMOGLOBIN 10.1 g/dL (13.5-18.0); LYMPHOCYTES # (AUTO) 1.3 X10^3/uL (1.3-2.9); LYMPHOCYTES % (AUTO) 25.4 % (21.0-51.0); MEAN CORPUSCULAR HEMOGLOBIN 30.4 pg (27.0-34.0); MEAN CORPUSCULAR HGB CONC 33.8 g/dL (33.0-35.0); MEAN CORPUSCULAR VOLUME 89.8 fL (80.0-100.0); MEAN PLATELET VOLUME 8.3 fL (7.4-11.0); MONOCYTES # (AUTO) 0.5 x10^3/uL (0.3-0.8); MONOCYTES % (AUTO) 9.5 % (0.0-13.0); NEUTROPHILS # (AUTO) 3.1 x10^3/uL (2.2-4.8); NEUTROPHILS % (AUTO) 60.5 % (42.0-75.0); PLATELET COUNT 141 X10^3/uL (150.0-450.0); RED BLOOD COUNT 3.34 X10^6/uL (4.7-6.0); RED CELL DISTRIBUTION WIDTH 15.8 % (11.6-16.5)
[2020-01-13] MEDS: DULCOLAX TAB EC 5 MG PO SCH ×2 (09:19→20:55)
[2020-01-13] MEDS: COREG TAB 3.125 MG PO SCH ×2 (09:20→20:55)
[2020-01-13] MEDS: ZESTRIL TAB 10 MG PO SCH (09:20)
[2020-01-13] MEDS: LIPITOR TAB 20 MG PO SCH (09:20)
[2020-01-13] MEDS: NICOTINE PATCH TD SCH (09:21)
[2020-01-13] MEDS: PROTONIX INJ 40 MG VIAL IVP SCH ×2 (09:26→20:55)
--- NOTE | 2020-01-13 15:28 | PCM.PROG ---
Progress Note - Progress Note for Day of Date of Exam: 01/13/20 - Subjective Subjective: Patient doing a lot better today. He is alert and oriented x 3, able to answer questions appropriately. reports patient has been more active since yesterday, talking and ambulating in the room, eating well. She states he is still weak and unsteady when he walks. Patient had been admitted due to anemia had a EGD and colonoscopy done during this visit. He had a fall on Monday in the hospital CT head showed a small scalp contusion, generalized cerebral atrophy, ventricular dilatation that is greater than cerebral cortical involution and clinical correlation for a normal pressure hydrocephalus is recommended. Lumbar XR showed degenerative arthropathy and hip XR was negative. Hgb stable at 10.9, no active bleeding. Discussed CT head findings with and also possible further work-up for NPH. Will need outpatient neurology referral on discharge. interested for the patient to go to rehab for further PT. - Past Medical Family Social History Past Med/Fam/Surg Hx: No changes since H&P Allergies: Allergies No Known Drug Allergies Allergy (Verified 01/06/20 16:12) - Review of Systems ROS: No change since H&P - Vital Signs and I&O's Vital Signs: Temperature 98.4 F Pulse Rate [Right Brachial] 76 Pulse Rate 61 Respiratory Rate 18 Blood Pressure [Left Arm] 128/74 Blood Pressure [Right Arm] 104/68 O2 Sat by Pulse Oximetry 100 Intake and Output: Intake & Output 01/11/20 01/12/20 01/13/20 01/14/20 10:59 11:59 11:59 11:59 Intake Total 1090 / 1090 1180 / 1180 Output Total 625 / 625 Balance 465 / 465 1180 / 1180 - Physical Exam Oriented: Normal Eyes: Normal Ear: Normal Nose: Normal Throat: Normal Respiratory: Normal Cardiovascular: Normal : Normal Auscultation: Bowel Sounds: Normal Tenderness: Normal (non tender) Skin: Normal Musculoskeletal: Normal Psychiatric: Normal Mood Description: Calm Affect: Normal Speech Pattern: Clear, Delayed - Laboratory and Diagnostics Result Diagrams: 01/13/20 05:19 01/13/20 05:19 Labs: 01/06/20 17:30 Stool Stool Culture - Final 01/06/20 17:30 Stool - Final Laboratory WBC 5.0 X10^3/uL (3.6-10.0) 01/13/20 05:19 RBC 3.34 X10^6/uL (4.7-6.0) L 01/13/20 05:19 Hgb 10.1 g/dL (13.5-18.0) L 01/13/20 05:19 Hct 30.0 % (42.0-54.0) L 01/13/20 05:19 MCV 89.8 fL (80.0-100.0) 01/13/20 05:19 MCH 30.4 pg (27.0-34.0) 01/13/20 05:19 MCHC 33.8 g/dL (33.0-35.0) 01/13/20 05:19 RDW 15.8 % (11.6-16.5) 01/13/20 05:19 Plt Count 141 X10^3/uL (150.0-450.0) L 01/13/20 05:19 Plt Count Comment Cancelled 01/07/20 05:15 MPV 8.3 fL (7.4-11.0) 01/13/20 05:19 Neut % (Auto) 60.5 % (42.0-75.0) 01/13/20 05:19 Lymph % (Auto) 25.4 % (21.0-51.0) 01/13/20 05:19 [place] % (Auto) 9.5 % (0.0-13.0) 01/13/20 05:19 Eos % (Auto) 4.1 % (0.9-2.9) H 01/13/20 05:19 Baso % (Auto) 0.5 % (0.2-1.0) 01/13/20 05:19 Neut # (Auto) 3.1 x10^3/uL (2.2-4.8) 01/13/20 05:19 Lymph # (Auto) 1.3 X10^3/uL (1.3-2.9) 01/13/20 05:19 [place] # (Auto) 0.5 x10^3/uL (0.3-0.8) 01/13/20 05:19 Eos # (Auto) 0.2 x10^3/uL (0.0-0.2) 01/13/20 05:19 Baso # (Auto) 0.0 X10^3/uL (0.0-0.1) 01/13/20 05:19 Absolute Nucleated RBC 0.0 /100WBC 01/13/20 05:19 Total Counted Cancelled 01/07/20 05:15 Neutrophils % (Manual) Cancelled 01/07/20 05:15 Band Neutrophils % Cancelled 01/07/20 05:15 Lymphocytes % (Manual) Cancelled 01/07/20 05:15 Monocytes % (Manual) Cancelled 01/07/20 05:15 Eosinophils % (Manual) Cancelled 01/07/20 05:15 Basophils % (Manual) Cancelled 01/07/20 05:15 Metamyelocytes % Cancelled 01/07/20 05:15 Myelocytes % Cancelled 01/07/20 05:15 Promyelocytes % Cancelled 01/07/20 05:15 Nucleated RBCs Cancelled 01/07/20 05:15 Atypical Lymphocytes Cancelled 01/07/20 05:15 Blast Cells Cancelled 01/07/20 05:15 Smudge Cells Cancelled 01/07/20 05:15 Toxic Granulation Cancelled 01/07/20 05:15 Dohle Bodies Cancelled 01/07/20 05:15 Favian Rods Cancelled 01/07/20 05:15 Plt Clumps, EDTA Cancelled 01/07/20 05:15 Giant Platelets Cancelled 01/07/20 05:15 Plt Morphology Comment Cancelled 01/07/20 05:15 RBC Morphology Cancelled 01/07/20 05:15 Dimorphic RBCs Cancelled 01/07/20 05:15 Polychromasia Cancelled 01/07/20 05:15 Hypochromasia Cancelled 01/07/20 05:15 Poikilocytosis Cancelled 01/07/20 05:15 Basophilic Stippling Cancelled 01/07/20 05:15 Anisocytosis Cancelled 01/07/20 05:15 Microcytosis Cancelled 01/07/20 05:15 Macrocytosis Cancelled 01/07/20 05:15 Spherocytes Cancelled 01/07/20 05:15 Pappenheimer Bodies Cancelled 01/07/20 05:15 Sickle Cells Cancelled 01/07/20 05:15 Target Cells Cancelled 01/07/20 05:15 Tear Drop Cells Cancelled 01/07/20 05:15 Ovalocytes Cancelled 01/07/20 05:15 Stomatocytes Cancelled 01/07/20 05:15 Helmet Cells Cancelled 01/07/20 05:15 [place] Bodies Cancelled 01/07/20 05:15 [place] Rings Cancelled 01/07/20 05:15 [place] Cells Cancelled 01/07/20 05:15 Crenated Cell Cancelled 01/07/20 05:15 Acanthocytes (Spur) Cancelled 01/07/20 05:15 Rouleaux Cancelled 01/07/20 05:15 Schistocytes Cancelled 01/07/20 05:15 Sodium 139 mmol/L (136-145) 01/13/20 05:19 Corrected Sodium TNP 01/13/20 05:19 Potassium 3.8 mmol/L (3.5-5.1) 01/13/20 05:19 Chloride 108 mmol/L (98-107) H 01/13/20 05:19 Carbon Dioxide 19.4 mmol/L (21-32) L 01/13/20 05:19 BUN 17 mg/dL (7-18) 01/13/20 05:19 Creatinine 1.58 mg/dL (0.70-1.30) H 01/13/20 05:19 Est GFR (MDRD) Af Amer 57 (>60) L 01/13/20 05:19 Est GFR (MDRD) Non-Af 47 (>60) L 01/13/20 05:19 Glucose 99 mg/dL (65-99) 01/13/20 05:19 Calcium 8.3 mg/dL (8.5-10.1) L 01/13/20 05:19 Corrected Calcium 9.5 mg/dL (8.5-10.1) 01/11/20 04:51 Total Bilirubin 0.50 mg/dL (0.2-1.0) 01/11/20 04:51 AST 28 Units/L (15-37) 01/11/20 04:51 ALT 18 Units/L (12-78) 01/11/20 04:51 Alkaline Phosphatase 52 Units/L (46-116) 01/11/20 04:51 Total Protein 9.3 g/dL (6.4-8.2) H 01/11/20 04:51 Albumin 3.2 g/dL (3.4-5.0) L 01/11/20 04:51 Globulin 6.1 g/dL (2.5-4.5) H 01/11/20 04:51 Albumin/Globulin Ratio 0.5 Ratio (1.1-2.1) L 01/11/20 04:51 Specimen Type Clean catch urine 01/06/20 17:30 Urine Color Yellow (YELLOW) 01/06/20 17:30 Urine Appearance Clear (CLEAR) 01/06/20 17:30 Urine pH 5.0 (5.0 - 8.0) 01/06/20 17:30 Ur Specific [place] 1.020 (1.000-1.030) 01/06/20 17:30 Urine Protein 1+ (NEGATIVE) 01/06/20 17:30 Urine Glucose (UA) Negative (NEGATIVE) 01/06/20 17:30 Urine Ketones Negative (NEGATIVE) 01/06/20 17:30 Urine Occult Blood Negative (NEGATIVE) 01/06/20 17:30 Urine Nitrite Negative (NEGATIVE) 01/06/20 17:30 Urine Bilirubin Negative (NEGATIVE) 01/06/20 17:30 Urine Urobilinogen Normal (NORMAL) 01/06/20 17:30 Ur Leukocyte Esterase Negative (NEGATIVE) 01/06/20 17:30 Urine RBC 0-2 /HPF (0-3) 01/06/20 17:30 Urine WBC 0-2 /HPF (0-5) 01/06/20 17:30 Ur Squamous Epith Cells Rare /HPF (NEGATIVE) 01/06/20 17:30 Amorphous Sediment Trace /HPF (NEGATIVE) 01/06/20 17:30 Urine Bacteria Negative /HPF (NEGATIVE) 01/06/20 17:30 Ur Culture Indicated? No/not indicated 01/06/20 17:30 Stool Description 250g. brown/formed 01/06/20 17:30 Stl Occult Blood (IFOB) Negative (NEGATIVE) 01/06/20 17:30 Stool for White Cells Negative (NEGATIVE) 01/06/20 17:30 Stl C. diff Tox B Gene Negative (NEGATIVE) 01/06/20 17:30 Stl C. diff 027-NAP1-BI Negative (NEGATIVE) 01/06/20 17:30 Stool H. pylori Ag Negative (NEGATIVE) 01/06/20 17:30 Tissue Pathology To follow 01/09/20 09:55 Blood Type O NEGATIVE 01/06/20 16:03 Antibody Screen Negative 01/06/20 16:03 Crossmatch See Detail 01/06/20 16:03 - Plan (1) Weakness generalized Status: Acute Plan: continue current medication regimen, PT evaluation. consult case management for rehab therapy. repeat am labs, discussed Neuro referral for evaluation [facility] (2) Symptomatic anemia Status: Acute (3) Dysphagia Status: Acute Qualifiers: Dysphagia type: unspecified Qualified Code(s): R13.10 - Dysphagia, unspecified (4) Unintentional weight loss Status: Acute (5) Hypertension Status: Acute Qualifiers: Hypertension type: essential hypertension Qualified Code(s): I10 - Essential (primary) hypertension (6) BPH (benign prostatic hyperplasia) Status: Acute Qualifiers: Lower urinary tract symptom presence: unspecified whether lower urinary tract symptoms present Qualified Code(s): N40.0 - Benign prostatic hyperplasia without lower urinary tract symptoms (7) Normal pressure hydrocephalus syndrome Status: Acute
[2020-01-14] MEDS: NS 1000 ML 1,000 ML IV SCH (02:04)
[2020-01-14 05:46] LABS: BASOPHILS % (AUTO) 0.7 % (0.2-1.0); EOSINOPHILS # (AUTO) 0.2 x10^3/uL (0.0-0.2); HEMATOCRIT 28.7 % (42.0-54.0); HEMOGLOBIN 9.7 g/dL (13.5-18.0); LYMPHOCYTES # (AUTO) 1.2 X10^3/uL (1.3-2.9); LYMPHOCYTES % (AUTO) 29.3 % (21.0-51.0); MEAN CORPUSCULAR HEMOGLOBIN 30.7 pg (27.0-34.0); MEAN CORPUSCULAR HGB CONC 33.9 g/dL (33.0-35.0); MEAN CORPUSCULAR VOLUME 90.6 fL (80.0-100.0); MEAN PLATELET VOLUME 8.6 fL (7.4-11.0); MONOCYTES # (AUTO) 0.4 x10^3/uL (0.3-0.8); MONOCYTES % (AUTO) 9.9 % (0.0-13.0); NEUTROPHILS # (AUTO) 2.3 x10^3/uL (2.2-4.8); NEUTROPHILS % (AUTO) 55.1 % (42.0-75.0); PLATELET COUNT 146 X10^3/uL (150.0-450.0); RED BLOOD COUNT 3.17 X10^6/uL (4.7-6.0); RED CELL DISTRIBUTION WIDTH 16.2 % (11.6-16.5); WHITE BLOOD COUNT 4.2 X10^3/uL (3.6-10.0)
[2020-01-14 06:03] LABS: ALBUMIN 2.7 g/dL (3.4-5.0); CALCIUM 8.3 mg/dL (8.5-10.1); CARBON DIOXIDE 20.6 mmol/L (21-32); COR CA(FOR HYPOALB) 9.3 mg/dL (8.5-10.1); CREATININE 1.57 mg/dL (0.70-1.30)
[2020-01-14] MEDS: DULCOLAX TAB EC 5 MG PO SCH ×2 (09:13→21:02)
[2020-01-14] MEDS: ZESTRIL TAB 10 MG PO SCH (09:13)
[2020-01-14] MEDS: LIPITOR TAB 20 MG PO SCH (09:13)
[2020-01-14] MEDS: PROTONIX INJ 40 MG VIAL IVP SCH ×2 (09:14→21:02)
[2020-01-14] MEDS: COREG TAB 3.125 MG PO SCH ×2 (09:14→21:00)
[2020-01-14] MEDS: NICOTINE PATCH TD SCH (09:14)
[2020-01-14] MEDS: HEMOCYTE-PLUS PO SCH (11:15)
[2020-01-14] MEDS: TYLENOL 325 MG TAB PO PRN (15:10)
--- NOTE | 2020-01-14 17:19 | PCM.PROG ---
Progress Note - Progress Note for Day of Date of Exam: 01/14/20 - Subjective Subjective: Patient doing a lot better today. He is alert and oriented x 3, able to answer questions appropriately. reports patient has been more active since yesterday, talking and ambulating in the room, eating well. She states he is still weak and unsteady when he walks. Patient had been admitted due to anemia had a EGD and colonoscopy done during this visit. He had a fall on Monday in the hospital CT head showed a small scalp contusion, generalized cerebral atrophy, ventricular dilatation that is greater than cerebral cortical involution and clinical correlation for a normal pressure hydrocephalus is recommended. Lumbar XR showed degenerative arthropathy and hip XR was negative. Hgb stable at 9.7, no active bleeding. IV fluids decreased to kvo from 50cc/hr. Pt started on po hemocyte plus. Will repeat cbc and cmp in the am. Discussed CT head findings with and also possible further work-up for NPH. Will need outpatient neurology referral on discharge. interested for the patient to go to rehab for further PT, placement at [facility] - Past Medical Family Social History Past Med/Fam/Surg Hx: No changes since H&P Allergies: Allergies No Known Drug Allergies Allergy (Verified 01/06/20 16:12) - Review of Systems ROS: No change since H&P - Vital Signs and I&O's Vital Signs: Temperature 97.5 F Pulse Rate [Right Brachial] 58 Pulse Rate 61 Respiratory Rate 20 Blood Pressure [Left Arm] 135/65 Blood Pressure [Right Arm] 104/68 O2 Sat by Pulse Oximetry 98 Intake and Output: Intake & Output 01/12/20 01/13/20 01/14/20 01/15/20 11:59 11:59 11:59 11:59 Intake Total 1090 / 1090 2720 / 2720 720 / 720 Output Total 625 / 625 Balance 465 / 465 2720 / 2720 720 / 720 - Physical Exam Oriented: Normal Eyes: Normal Ear: Normal Nose: Normal Throat: Normal Respiratory: Normal Cardiovascular: Normal : Normal Auscultation: Bowel Sounds: Normal Tenderness: Normal (non tender) Skin: Normal Musculoskeletal: Normal Psychiatric: Normal Mood Description: Calm Affect: Normal Speech Pattern: Clear, Delayed - Laboratory and Diagnostics Result Diagrams: 01/14/20 05:30 01/14/20 05:30 Labs: 01/06/20 17:30 Stool Stool Culture - Final 01/06/20 17:30 Stool - Final Laboratory WBC 4.2 X10^3/uL (3.6-10.0) 01/14/20 05:30 RBC 3.17 X10^6/uL (4.7-6.0) L 01/14/20 05:30 Hgb 9.7 g/dL (13.5-18.0) L 01/14/20 05:30 Hct 28.7 % (42.0-54.0) L 01/14/20 05:30 MCV 90.6 fL (80.0-100.0) 01/14/20 05:30 MCH 30.7 pg (27.0-34.0) 01/14/20 05:30 MCHC 33.9 g/dL (33.0-35.0) 01/14/20 05:30 RDW 16.2 % (11.6-16.5) 01/14/20 05:30 Plt Count 146 X10^3/uL (150.0-450.0) L 01/14/20 05:30 Plt Count Comment Cancelled 01/07/20 05:15 MPV 8.6 fL (7.4-11.0) 01/14/20 05:30 Neut % (Auto) 55.1 % (42.0-75.0) 01/14/20 05:30 Lymph % (Auto) 29.3 % (21.0-51.0) 01/14/20 05:30 [place] % (Auto) 9.9 % (0.0-13.0) 01/14/20 05:30 Eos % (Auto) 5.0 % (0.9-2.9) H 01/14/20 05:30 Baso % (Auto) 0.7 % (0.2-1.0) 01/14/20 05:30 Neut # (Auto) 2.3 x10^3/uL (2.2-4.8) 01/14/20 05:30 Lymph # (Auto) 1.2 X10^3/uL (1.3-2.9) L 01/14/20 05:30 [place] # (Auto) 0.4 x10^3/uL (0.3-0.8) 01/14/20 05:30 Eos # (Auto) 0.2 x10^3/uL (0.0-0.2) 01/14/20 05:30 Baso # (Auto) 0.0 X10^3/uL (0.0-0.1) 01/14/20 05:30 Absolute Nucleated RBC 0.0 /100WBC 01/14/20 05:30 Total Counted Cancelled 01/07/20 05:15 Neutrophils % (Manual) Cancelled 01/07/20 05:15 Band Neutrophils % Cancelled 01/07/20 05:15 Lymphocytes % (Manual) Cancelled 01/07/20 05:15 Monocytes % (Manual) Cancelled 01/07/20 05:15 Eosinophils % (Manual) Cancelled 01/07/20 05:15 Basophils % (Manual) Cancelled 01/07/20 05:15 Metamyelocytes % Cancelled 01/07/20 05:15 Myelocytes % Cancelled 01/07/20 05:15 Promyelocytes % Cancelled 01/07/20 05:15 Nucleated RBCs Cancelled 01/07/20 05:15 Atypical Lymphocytes Cancelled 01/07/20 05:15 Blast Cells Cancelled 01/07/20 05:15 Smudge Cells Cancelled 01/07/20 05:15 Toxic Granulation Cancelled 01/07/20 05:15 Dohle Bodies Cancelled 01/07/20 05:15 Favian Rods Cancelled 01/07/20 05:15 Plt Clumps, EDTA Cancelled 01/07/20 05:15 Giant Platelets Cancelled 01/07/20 05:15 Plt Morphology Comment Cancelled 01/07/20 05:15 RBC Morphology Cancelled 01/07/20 05:15 Dimorphic RBCs Cancelled 01/07/20 05:15 Polychromasia Cancelled 01/07/20 05:15 Hypochromasia Cancelled 01/07/20 05:15 Poikilocytosis Cancelled 01/07/20 05:15 Basophilic Stippling Cancelled 01/07/20 05:15 Anisocytosis Cancelled 01/07/20 05:15 Microcytosis Cancelled 01/07/20 05:15 Macrocytosis Cancelled 01/07/20 05:15 Spherocytes Cancelled 01/07/20 05:15 Pappenheimer Bodies Cancelled 01/07/20 05:15 Sickle Cells Cancelled 01/07/20 05:15 Target Cells Cancelled 01/07/20 05:15 Tear Drop Cells Cancelled 01/07/20 05:15 Ovalocytes Cancelled 01/07/20 05:15 Stomatocytes Cancelled 01/07/20 05:15 Helmet Cells Cancelled 01/07/20 05:15 Jara-Montgomery Bodies Cancelled 01/07/20 05:15 Blunt Rings Cancelled 01/07/20 05:15 [place] Cells Cancelled 01/07/20 05:15 Crenated Cell Cancelled 01/07/20 05:15 Acanthocytes (Spur) Cancelled 01/07/20 05:15 Rouleaux Cancelled 01/07/20 05:15 Schistocytes Cancelled 01/07/20 05:15 Sodium 140 mmol/L (136-145) 01/14/20 05:30 Corrected Sodium 140 mmol/L (136-145) 01/14/20 05:30 Potassium 3.5 mmol/L (3.5-5.1) 01/14/20 05:30 Chloride 109 mmol/L (98-107) H 01/14/20 05:30 Carbon Dioxide 20.6 mmol/L (21-32) L 01/14/20 05:30 BUN 15 mg/dL (7-18) 01/14/20 05:30 Creatinine 1.57 mg/dL (0.70-1.30) H 01/14/20 05:30 Est GFR (MDRD) Af Amer 57 (>60) L 01/14/20 05:30 Est GFR (MDRD) Non-Af 47 (>60) L 01/14/20 05:30 Glucose 120 mg/dL (65-99) H 01/14/20 05:30 Calcium 8.3 mg/dL (8.5-10.1) L 01/14/20 05:30 Corrected Calcium 9.3 mg/dL (8.5-10.1) 01/14/20 05:30 Total Bilirubin 0.20 mg/dL (0.2-1.0) 01/14/20 05:30 AST 28 Units/L (15-37) 01/14/20 05:30 ALT 21 Units/L (12-78) 01/14/20 05:30 Alkaline Phosphatase 41 Units/L (46-116) L 01/14/20 05:30 Total Protein 8.0 g/dL (6.4-8.2) 01/14/20 05:30 Albumin 2.7 g/dL (3.4-5.0) L 01/14/20 05:30 Globulin 5.3 g/dL (2.5-4.5) H 01/14/20 05:30 Albumin/Globulin Ratio 0.5 Ratio (1.1-2.1) L 01/14/20 05:30 Specimen Type Clean catch urine 01/06/20 17:30 Urine Color Yellow (YELLOW) 01/06/20 17:30 Urine Appearance Clear (CLEAR) 01/06/20 17:30 Urine pH 5.0 (5.0 - 8.0) 01/06/20 17:30 Ur Specific [place] 1.020 (1.000-1.030) 01/06/20 17:30 Urine Protein 1+ (NEGATIVE) 01/06/20 17:30 Urine Glucose (UA) Negative (NEGATIVE) 01/06/20 17:30 Urine Ketones Negative (NEGATIVE) 01/06/20 17:30 Urine Occult Blood Negative (NEGATIVE) 01/06/20 17:30 Urine Nitrite Negative (NEGATIVE) 01/06/20 17:30 Urine Bilirubin Negative (NEGATIVE) 01/06/20 17:30 Urine Urobilinogen Normal (NORMAL) 01/06/20 17:30 Ur Leukocyte Esterase Negative (NEGATIVE) 01/06/20 17:30 Urine RBC 0-2 /HPF (0-3) 01/06/20 17:30 Urine WBC 0-2 /HPF (0-5) 01/06/20 17:30 Ur Squamous Epith Cells Rare /HPF (NEGATIVE) 01/06/20 17:30 Amorphous Sediment Trace /HPF (NEGATIVE) 01/06/20 17:30 Urine Bacteria Negative /HPF (NEGATIVE) 01/06/20 17:30 Ur Culture Indicated? No/not indicated 01/06/20 17:30 Stool Description 250g. brown/formed 01/06/20 17:30 Stl Occult Blood (IFOB) Negative (NEGATIVE) 01/06/20 17:30 Stool for White Cells Negative (NEGATIVE) 01/06/20 17:30 Stl C. diff Tox B Gene Negative (NEGATIVE) 01/06/20 17:30 Stl C. diff [id number] Negative (NEGATIVE) 01/06/20 17:30 Stool H. pylori Ag Negative (NEGATIVE) 01/06/20 17:30 Tissue Pathology To follow 01/09/20 09:55 Blood Type O NEGATIVE 01/06/20 16:03 Antibody Screen Negative 01/06/20 16:03 Crossmatch See Detail 01/06/20 16:03 - Plan (1) Weakness generalized Status: Acute Plan: continue current medication regimen, PT evaluation. consult case management for rehab therapy. repeat am labs, discussed Neuro referral for evaluation [facility] (2) Symptomatic anemia Status: Acute (3) Dysphagia Status: Acute Qualifiers: Dysphagia type: unspecified Qualified Code(s): R13.10 - Dysphagia, unspecified (4) Unintentional weight loss Status: Acute (5) Hypertension Status: Acute Qualifiers: Hypertension type: essential hypertension Qualified Code(s): I10 - Essential (primary) hypertension (6) BPH (benign prostatic hyperplasia) Status: Acute Qualifiers: Lower urinary tract symptom presence: unspecified whether lower urinary tract symptoms present Qualified Code(s): N40.0 - Benign prostatic hyperplasia without lower urinary tract symptoms (7) Normal pressure hydrocephalus syndrome Status: Acute
[2020-01-15 06:30] LABS: EOSINOPHILS # (AUTO) 0.2 x10^3/uL (0.0-0.2); EOSINOPHILS % (AUTO) 6.4 % (0.9-2.9); HEMATOCRIT 28.6 % (42.0-54.0); HEMOGLOBIN 9.7 g/dL (13.5-18.0); LYMPHOCYTES # (AUTO) 1.1 X10^3/uL (1.3-2.9); LYMPHOCYTES % (AUTO) 28.5 % (21.0-51.0); MEAN CORPUSCULAR HEMOGLOBIN 30.4 pg (27.0-34.0); MEAN CORPUSCULAR VOLUME 89.6 fL (80.0-100.0); MEAN PLATELET VOLUME 8.1 fL (7.4-11.0); MONOCYTES # (AUTO) 0.4 x10^3/uL (0.3-0.8); MONOCYTES % (AUTO) 11.6 % (0.0-13.0); NEUTROPHILS % (AUTO) 52.5 % (42.0-75.0); PLATELET COUNT 150 X10^3/uL (150.0-450.0); RED BLOOD COUNT 3.19 X10^6/uL (4.7-6.0); RED CELL DISTRIBUTION WIDTH 15.6 % (11.6-16.5); WHITE BLOOD COUNT 3.7 X10^3/uL (3.6-10.0)
[2020-01-15 06:36] LABS: ALANINE AMINOTRANSFERASE 23 Units/L (12-78); ALBUMIN 2.6 g/dL (3.4-5.0); ALKALINE PHOSPHATASE 48 Units/L (46-116); ASPARTATE AMINO TRANSFERASE 31 Units/L (15-37); BLOOD UREA NITROGEN 12 mg/dL (7-18); CALCIUM 8.3 mg/dL (8.5-10.1); CARBON DIOXIDE 21.2 mmol/L (21-32); CHLORIDE 109 mmol/L (98-107); COR CA(FOR HYPOALB) 9.4 mg/dL (8.5-10.1); SODIUM 140 mmol/L (136-145); TOTAL PROTEIN 7.9 g/dL (6.4-8.2); eGFR NON BLACK RACES 54 (>60)
[2020-01-15] MEDS: ZESTRIL TAB 10 MG PO SCH (09:47)
[2020-01-15] MEDS: PROTONIX INJ 40 MG VIAL IVP SCH ×2 (09:47→21:36)
[2020-01-15] MEDS: HEMOCYTE-PLUS PO SCH (09:47)
[2020-01-15] MEDS: LIPITOR TAB 20 MG PO SCH (09:47)
[2020-01-15] MEDS: COREG TAB 3.125 MG PO SCH ×2 (09:47→21:34)
[2020-01-15] MEDS: DULCOLAX TAB EC 5 MG PO SCH ×2 (09:47→21:34)
[2020-01-15] MEDS: NICOTINE PATCH TD SCH (09:48)
[2020-01-16 06:45] LABS: BASOPHILS % (AUTO) 0.7 % (0.2-1.0); EOSINOPHILS # (AUTO) 0.2 x10^3/uL (0.0-0.2); EOSINOPHILS % (AUTO) 4.5 % (0.9-2.9); HEMATOCRIT 29.6 % (42.0-54.0); LYMPHOCYTES # (AUTO) 1.2 X10^3/uL (1.3-2.9); LYMPHOCYTES % (AUTO) 24.4 % (21.0-51.0); MEAN CORPUSCULAR HEMOGLOBIN 30.1 pg (27.0-34.0); MEAN CORPUSCULAR HGB CONC 33.7 g/dL (33.0-35.0); MEAN CORPUSCULAR VOLUME 89.5 fL (80.0-100.0); MEAN PLATELET VOLUME 8.8 fL (7.4-11.0); MONOCYTES # (AUTO) 0.5 x10^3/uL (0.3-0.8); MONOCYTES % (AUTO) 9.1 % (0.0-13.0); NEUTROPHILS # (AUTO) 3.1 x10^3/uL (2.2-4.8); NEUTROPHILS % (AUTO) 61.3 % (42.0-75.0); PLATELET COUNT 161 X10^3/uL (150.0-450.0); RED BLOOD COUNT 3.31 X10^6/uL (4.7-6.0)
[2020-01-16 07:02] LABS: ALANINE AMINOTRANSFERASE 41 Units/L (12-78); ALBUMIN 2.8 g/dL (3.4-5.0); ALKALINE PHOSPHATASE 48 Units/L (46-116); ASPARTATE AMINO TRANSFERASE 58 Units/L (15-37); BLOOD UREA NITROGEN 12 mg/dL (7-18); CALCIUM 8.7 mg/dL (8.5-10.1); CARBON DIOXIDE 20.4 mmol/L (21-32); CHLORIDE 107 mmol/L (98-107); COR CA(FOR HYPOALB) 9.7 mg/dL (8.5-10.1); CREATININE 1.48 mg/dL (0.70-1.30); SODIUM 137 mmol/L (136-145); TOTAL PROTEIN 8.3 g/dL (6.4-8.2); eGFR NON BLACK RACES 51 (>60)
[2020-01-16] MEDS: NICOTINE PATCH TD SCH (09:03)
[2020-01-16] MEDS: COREG TAB 3.125 MG PO SCH (09:04)
[2020-01-16] MEDS: HEMOCYTE-PLUS PO SCH (09:04)
[2020-01-16] MEDS: DULCOLAX TAB EC 5 MG PO SCH (09:04)
[2020-01-16] MEDS: PROTONIX INJ 40 MG VIAL IVP SCH (09:04)
[2020-01-16] MEDS: LIPITOR TAB 20 MG PO SCH (09:05)
[2020-01-16] MEDS: ZESTRIL TAB 10 MG PO SCH (09:05)
[2020-01-16 12:27] VITALS: BP 131/62
== END 2020-01-16 12:50 | DRG 812 ==
LOC: MED/SURG 15:23
PROVIDERS: ADMIT Internal Medicine; ATTEND Internal Medicine
DX: R13.11 Dysphagia, oral phase; K64.8 Other hemorrhoids; R06.02 Shortness of breath; K63.5 Polyp of colon; Q27.33 Arteriovenous malformation of digestive system vessel; D50.8 Other iron deficiency anemias; S00.03XA Contusion of scalp, initial encounter; Y92.230 Patient room in hospital as the place of occurrence of the external cause; R63.4 Abnormal weight loss; Z12.11 Encounter for screening for malignant neoplasm of colon; R42 Dizziness and giddiness; R26.89 Other abnormalities of gait and mobility; W18.39XA Other fall on same level, initial encounter; K29.60 Other gastritis without bleeding; I10 Essential (primary) hypertension; K59.09 Other constipation; N40.0 Benign prostatic hyperplasia without lower urinary tract symptoms; K21.9 Gastro-esophageal reflux disease without esophagitis
CPT/HCPCS: 36415; 36430; 70450; 71020; 71046; 72100; 73521; 74177; 80048; 80053; 81001; 82270; 83630; 85014; 85018; 85025; 86850; 86900; 86901; 86922; 87045; 87338; 87427; 87449; 87493; 87899; 88305; 94760; 97110; 97112; 97116; 97161; 97165; 97535; A4217; A4222; C9113; J1200; J2704; J3490; J7030; J7040; P9016

== ENCOUNTER 2020-03-16 17:05 | Inpatient (IN) ==
[2020-03-16] MEDS ORDERED: ZOFRAN INJ 4 MG VIAL IVP PRN (18:01)
[2020-03-16] MEDS ORDERED: TYLENOL 325 MG TAB PO PRN (18:01)
[2020-03-16 20:31] LABS: BILIRUBIN,URINE NEGATIVE (NEGATIVE); BLOOD/HEMOGLOBIN,URINE NEGATIVE (NEGATIVE); GLUCOSE, URINE NEGATIVE (NEGATIVE); KETONES,URINE NEGATIVE (NEGATIVE); LEUKOCYTE ESTERASE ,URINE NEGATIVE (NEGATIVE); NITRITES,URINE NEGATIVE (NEGATIVE); PROTEIN,URINE NEGATIVE (NEGATIVE); UROBILINOGEN,URINE NORMAL (NORMAL)
[2020-03-16] MEDS: NICOTINE PATCH TD SCH (20:35)
[2020-03-16] MEDS: NS 1000 ML 1,000 ML IV SCH (20:35)
[2020-03-16] MEDS: PROTONIX INJ 40 MG VIAL IVP SCH (20:36)
[2020-03-16 20:37] LABS: APPEARANCE,URINE CLEAR (CLEAR); COLOR,URINE PALE YELLOW (YELLOW)
--- NOTE | 2020-03-16 22:19 | RAD ---
Chest AP portableIndication: Symptomatic [email or web address] is no pneumothorax or effusion. No dense consolidation seen. Heart size is upper limits of normal.IMPRESSIONCOPD, without new acute chest process or change from the prior.Electronically signed by: ILDA ORTEZ (March 16, 2020 22:18:20)
[2020-03-17 02:13] LABS: HEMATOCRIT 23.9 % (42.0-54.0)
[2020-03-17 05:50] LABS: BASOPHILS % (AUTO) 0.6 % (0.2-1.0); EOSINOPHILS # (AUTO) 0.3 x10^3/uL (0.0-0.2); EOSINOPHILS % (AUTO) 5.5 % (0.9-2.9); HEMATOCRIT 23.7 % (42.0-54.0); LYMPHOCYTES # (AUTO) 1.2 X10^3/uL (1.3-2.9); LYMPHOCYTES % (AUTO) 22.2 % (21.0-51.0); MEAN CORPUSCULAR HEMOGLOBIN 31.2 pg (27.0-34.0); MEAN CORPUSCULAR HGB CONC 33.6 g/dL (33.0-35.0); MEAN CORPUSCULAR VOLUME 92.8 fL (80.0-100.0); MEAN PLATELET VOLUME 8.7 fL (7.4-11.0); MONOCYTES # (AUTO) 0.5 x10^3/uL (0.3-0.8); MONOCYTES % (AUTO) 9.4 % (0.0-13.0); NEUTROPHILS # (AUTO) 3.4 x10^3/uL (2.2-4.8); NEUTROPHILS % (AUTO) 62.3 % (42.0-75.0); PLATELET COUNT 165 X10^3/uL (150.0-450.0); RED BLOOD COUNT 2.56 X10^6/uL (4.7-6.0); RED CELL DISTRIBUTION WIDTH 16.4 % (11.6-16.5); WHITE BLOOD COUNT 5.4 X10^3/uL (3.6-10.0)
[2020-03-17 06:06] LABS: ALANINE AMINOTRANSFERASE 34 Units/L (12-78); ALBUMIN 3.1 g/dL (3.4-5.0); ALKALINE PHOSPHATASE 60 Units/L (46-116); ASPARTATE AMINO TRANSFERASE 38 Units/L (15-37); BLOOD UREA NITROGEN 24 mg/dL (7-18); CALCIUM 8.1 mg/dL (8.5-10.1); CARBON DIOXIDE 21.3 mmol/L (21-32); CHLORIDE 107 mmol/L (98-107); COR CA(FOR HYPOALB) 8.8 mg/dL (8.5-10.1); SODIUM 138 mmol/L (136-145); TOTAL PROTEIN 8.3 g/dL (6.4-8.2); eGFR NON BLACK RACES 43 (>60)
[2020-03-17] MEDS: PROTONIX INJ 40 MG VIAL IVP SCH ×2 (08:56→20:33)
[2020-03-17] MEDS: NICOTINE PATCH TD SCH (08:58)
[2020-03-17] MEDS ORDERED: GLUCOSAMINE CHONDROITIN PO SCH (09:00)
[2020-03-17] MEDS ORDERED: DIPRIVAN VIAL ONE (09:18)
[2020-03-17] MEDS: HEMOCYTE-PLUS PO SCH (10:00)
[2020-03-17] MEDS: ZESTRIL TAB 10 MG PO SCH (10:00)
[2020-03-17] MEDS: COREG TAB 3.125 MG PO SCH ×2 (10:00→20:33)
[2020-03-17] MEDS: LIPITOR TAB 20 MG PO SCH (10:00)
--- NOTE | 2020-03-17 12:08 | DR.CONSULT ---
Consult - Consultation for Day of: Date: 03/17/20 - Chief Complaint Chief Complaint: Patient referred for anemia. Patient with complaints of dyshagia and melena. - History of Present Illness History of Present Illness: Patient is a 64 yo male who was referred for anemia. Patient with complaints of dysphagia and melena x 2 weeks. Patient denies dyspepsia, nausea, vomiting, abdominal pain, constipation, diarrhea and hematochezia. 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 Last colonoscopy was 01/09/20 which showed hyperplastic colon polyps, internal hemorrhoids and large cecal AVM with Coagulation performed. Hgb 8.0 up from 6.9 after 1 unit of PRBBC, Hct 23.7, BUN 24, Creatinine 1.7, Iron 34 - Past Medical History Past Medical History: Anxiety, Coronary Artery Disease, GERD, Hypertension - Past Surgical History Surgical History: Tonsillectomy - Family History Family Medical History: Diabetes Mellitus, [place], Hypertension - Social History Does patient currently use any type of tobacco product: Yes Have you used tobacco products in the last 12 months: Yes Type of Tobacco Use: Cigarettes How many years tobacco product used: 53 Does any household member use tobacco: No Alcohol Use: None Drug Use: None - Medications Home Medications: No Known Drug Allergies Allergy (Verified 01/06/20 16:12) CONTINUE taking the following medications ferrous sulfate 324 mg PO BID 03/17/20 [History] iron-folic acid-mv, min cmb#15 [Hemocyte-Plus] 1 cap PO DAILY 03/17/20 [History] levothyroxine 25 mcg PO DAILY 03/17/20 [History] - Review of Systems Gastrointestinal: See HPI, Melena, Other (dysphagia). denies: Nausea, Vomiting, Abdominal Pain, Diarrhea, Constipation, Hematochezia - Physical Exam Vital Signs: Temperature 97.5 F Pulse Rate [Right Brachial] 62 Pulse Rate [Left Brachial] 62 Respiratory Rate 20 Blood Pressure [Right Arm] 138/66 Blood Pressure [Left Arm] 126/59 O2 Sat by Pulse Oximetry 100 Oriented: Normal Eyes: Normal Ear: Normal Nose: Normal Throat: Normal Respiratory: Clear Throughout Cardiovascular: Normal Auscultation: Bowel Sounds: Normal Palpation: Normal, Other (no distention). negative: Spleen Enlarged, Liver Enlarged, Mass Pulsatile Tenderness: Normal (non tender) Skin: Normal Musculoskeletal: Normal Psychiatric: Normal Mood Description: Calm Affect: Normal Speech Pattern: Clear, Appropriate - Plan Plan: Assessment. 1. Anemia r/o GI loss. Plan. 1. EGD today, Monitor Hgb, Transfuse as needed, Protonix IV. Plan reviewed with Dr. Marte - Allergies Allergies/Adverse Reactions: Allergies Allergy/AdvReac Type Severity Reaction Status Date / Time No Known Drug Allergies Allergy Verified 01/06/20 16:12
--- NOTE | 2020-03-17 13:33 | DR.H&P ---
H&P - History & Physical for Day of: H&P Date: 03/16/20 - Chief Complaint Chief Complaint: weakness, howard, pale "low blood" - History of Present Illness History of Present Illness: PT IS 64 BM DIRECT ADMIT FROM DR ARMENTA OFFICE WITH SYMPTOMATIC ANEMIA. PT HAS HX OF ANEMIA AND CURRENTLY ON IRON REPLACEMENT THERAPY. PT CBC 6.9 ON OUTPT LABS. PT CO WEAKNESS AND SOB ON EXERTION. PTS SPOUSE STATES ONSET LAST WEEK. PT HAS PMH OF HTN, OA. PT ADMITTED FOR TREATMENT OF ACUTE ILLNESS. - Past Medical History Past Medical History: Anxiety, Coronary Artery Disease, GERD, Hypertension - Past Surgical History Surgical History: Tonsillectomy - Family History Family Medical History: Diabetes Mellitus, [place], Hypertension - Social History Does patient currently use any type of tobacco product: Yes Have you used tobacco products in the last 12 months: Yes Type of Tobacco Use: Cigarettes How many years tobacco product used: 53 Does any household member use tobacco: No Alcohol Use: None Drug Use: None - Medications Home Medications: No Known Drug Allergies Allergy (Verified 01/06/20 16:12) CONTINUE taking the following medications ferrous sulfate 324 mg PO BID 03/17/20 [History] iron-folic acid-mv, min cmb#15 [Hemocyte-Plus] 1 cap PO DAILY 03/17/20 [History] levothyroxine 25 mcg PO DAILY 03/17/20 [History] - Review of Systems Constitutional: Weakness Eyes: No Symptoms Reported ENT: No Symptoms Reported Respiratory: SOB with Excertion Cardiovascular: No Symptoms Reported Gastrointestinal: No Symptoms Reported Genitourinary: No Symptoms Reported Musculoskeletal: No Symptoms Reported Skin: No Symptoms Reported Neurological: No Symptoms Reported - Physical Exam Vital Signs: Temperature 97.5 F Pulse Rate [Right Brachial] 62 Pulse Rate [Left Brachial] 62 Respiratory Rate 20 Blood Pressure [Right Arm] 138/66 Blood Pressure [Left Arm] 126/59 O2 Sat by Pulse Oximetry 100 Oriented: Normal Eyes: Normal Ear: Normal Nose: Normal Throat: Dry Respiratory: RLL Diminished, LLL Diminished Cardiovascular: Normal. negative: Edema : Normal Auscultation: Bowel Sounds: Normal Palpation: Normal Tenderness: Normal Skin: Decreased Turgur Psychiatric: Normal Mood Description: Calm Speech Pattern: Clear, Appropriate - Assessment/Plan (1) Symptomatic anemia Status: Acute Plan: ADMIT, TYPE AND CROSS MATCH, TRANSFUSE PRBC X 2 UNITS. PER PROTOCOL, OCCULT STOOL, VERIFY HOME MEDICATIONS. BP CONTROL, SUPPLEMENTAL O2, TELEMETRY (2) Hypertension Qualifiers: Hypertension type: essential hypertension Qualified Code(s): I10 - Essential (primary) hypertension Status: Acute (3) Weakness generalized Status: Acute - Allergies Allergies/Adverse Reactions: Allergies Allergy/AdvReac Type Severity Reaction Status Date / Time No Known Drug Allergies Allergy Verified 01/06/20 16:12
[2020-03-17] MEDS ORDERED: DIPRIVAN VIAL 40 ML ONE (14:47)
[2020-03-17] MEDS: NS 1000 ML 1,000 ML IV SCH ×2 (15:15→22:54)
[2020-03-17] MEDS ORDERED: NS 250 ML IV 250 ML IV ONE (15:29)
[2020-03-17 16:17] VITALS: BMI 21.9
[2020-03-17 20:08] LABS: HEMATOCRIT 27.5 % (42.0-54.0); HEMOGLOBIN 9.3 g/dL (13.5-18.0)
[2020-03-17] MEDS ORDERED: PROTONIX TAB 40 MG PO SCH (21:00)
[2020-03-18] MEDS: NS 1000 ML 1,000 ML IV SCH (06:14)
[2020-03-18 08:27] LABS: ALANINE AMINOTRANSFERASE 32 Units/L (12-78); ALBUMIN 3.3 g/dL (3.4-5.0); ALKALINE PHOSPHATASE 62 Units/L (46-116); ASPARTATE AMINO TRANSFERASE 38 Units/L (15-37); BLOOD UREA NITROGEN 17 mg/dL (7-18); CALCIUM 8.4 mg/dL (8.5-10.1); CARBON DIOXIDE 22.1 mmol/L (21-32); CHLORIDE 106 mmol/L (98-107); CREATININE 1.68 mg/dL (0.70-1.30); SODIUM 138 mmol/L (136-145); TOTAL PROTEIN 8.8 g/dL (6.4-8.2); eGFR NON BLACK RACES 44 (>60)
[2020-03-18 08:29] LABS: BASOPHILS % (AUTO) 0.5 % (0.2-1.0); EOSINOPHILS # (AUTO) 0.2 x10^3/uL (0.0-0.2); EOSINOPHILS % (AUTO) 3.7 % (0.9-2.9); HEMATOCRIT 30.3 % (42.0-54.0); HEMOGLOBIN 10.1 g/dL (13.5-18.0); LYMPHOCYTES # (AUTO) 1.1 X10^3/uL (1.3-2.9); LYMPHOCYTES % (AUTO) 20.9 % (21.0-51.0); MEAN CORPUSCULAR HEMOGLOBIN 31.3 pg (27.0-34.0); MEAN CORPUSCULAR HGB CONC 33.3 g/dL (33.0-35.0); MEAN CORPUSCULAR VOLUME 93.9 fL (80.0-100.0); MEAN PLATELET VOLUME 8.2 fL (7.4-11.0); MONOCYTES # (AUTO) 0.5 x10^3/uL (0.3-0.8); MONOCYTES % (AUTO) 8.6 % (0.0-13.0); NEUTROPHILS # (AUTO) 3.6 x10^3/uL (2.2-4.8); NEUTROPHILS % (AUTO) 66.3 % (42.0-75.0); PLATELET COUNT 178 X10^3/uL (150.0-450.0); RED BLOOD COUNT 3.22 X10^6/uL (4.7-6.0); RED CELL DISTRIBUTION WIDTH 16.6 % (11.6-16.5); WHITE BLOOD COUNT 5.4 X10^3/uL (3.6-10.0)
[2020-03-18] MEDS: PROTONIX INJ 40 MG VIAL IVP SCH (09:00)
[2020-03-18] MEDS: HEMOCYTE-PLUS PO SCH (09:00)
[2020-03-18] MEDS: ZESTRIL TAB 10 MG PO SCH (09:00)
[2020-03-18] MEDS: LIPITOR TAB 20 MG PO SCH (09:00)
[2020-03-18] MEDS: COREG TAB 3.125 MG PO SCH (09:00)
[2020-03-18] MEDS: NICOTINE PATCH TD SCH (09:00)
--- NOTE | 2020-03-18 11:49 | PCM.PROG ---
Progress Note - Progress Note for Day of Date of Exam: 03/17/20 - Subjective Subjective: PT IS 64 BM ADMITTED WITH SYMPTOMATIC ANEMIA, HX OF GI AV MALFORMATIONS. PT HGB 8.0 FOLLOWING FIRST UNIT PRBC. PT HAD BEEN ON PPI PROTONIX IV BID SINCE ADMISSION AND GENTLE IV HYDRATION. PT DENIES ANY PAIN THIS AM. PT WILL BE NPO FOR POSSIBLE EGD PER DR MERRITT THIS AFTERNOON, WILL PROCEED WITH 2ND UNIT PRBC WHEN AVAILABLE. WILL REPEAT AM LABS, OCCULT STOOL UNCOLLECTED. - Past Medical Family Social History Past Med/Fam/Surg Hx: No changes since H&P Allergies: Allergies No Known Drug Allergies Allergy (Verified 01/06/20 16:12) - Review of Systems ROS: No change since H&P - Vital Signs and I&O's Vital Signs: Temperature 99.2 F Pulse Rate [Right Brachial] 61 Pulse Rate [Left Brachial] 62 Respiratory Rate 18 Blood Pressure [Right Arm] 141/65 Blood Pressure [Left Arm] 126/59 O2 Sat by Pulse Oximetry 100 Intake and Output: Intake & Output 03/15/20 03/16/20 03/17/20 03/18/20 11:59 11:59 11:59 11:59 Intake Total 1010 / 1010 2445 / 2445 Output Total 350 / 350 450 / 450 Balance 660 / 660 1994 - Physical Exam Oriented: Normal Eyes: Normal Ear: Normal Nose: Normal Throat: Dry Respiratory: Diminished Cardiovascular: Normal. negative: Edema : Normal Auscultation: Bowel Sounds: Normal Tenderness: Normal Skin: Decreased Turgur Musculoskeletal: Normal Psychiatric: Normal Mood Description: Calm Affect: Normal Speech Pattern: Clear, Appropriate - Laboratory and Diagnostics Result Diagrams: 03/18/20 08:00 03/18/20 08:00 Labs: Laboratory WBC 5.4 X10^3/uL (3.6-10.0) 03/18/20 08:00 RBC 3.22 X10^6/uL (4.7-6.0) L 03/18/20 08:00 Hgb 10.1 g/dL (13.5-18.0) L 03/18/20 08:00 Hct 30.3 % (42.0-54.0) L 03/18/20 08:00 MCV 93.9 fL (80.0-100.0) 03/18/20 08:00 MCH 31.3 pg (27.0-34.0) 03/18/20 08:00 MCHC 33.3 g/dL (33.0-35.0) 03/18/20 08:00 RDW 16.6 % (11.6-16.5) H 03/18/20 08:00 Plt Count 178 X10^3/uL (150.0-450.0) 03/18/20 08:00 MPV 8.2 fL (7.4-11.0) 03/18/20 08:00 Neut % (Auto) 66.3 % (42.0-75.0) 03/18/20 08:00 Lymph % (Auto) 20.9 % (21.0-51.0) L 03/18/20 08:00 [place] % (Auto) 8.6 % (0.0-13.0) 03/18/20 08:00 Eos % (Auto) 3.7 % (0.9-2.9) H 03/18/20 08:00 Baso % (Auto) 0.5 % (0.2-1.0) 03/18/20 08:00 Neut # (Auto) 3.6 x10^3/uL (2.2-4.8) 03/18/20 08:00 Lymph # (Auto) 1.1 X10^3/uL (1.3-2.9) L 03/18/20 08:00 [place] # (Auto) 0.5 x10^3/uL (0.3-0.8) 03/18/20 08:00 Eos # (Auto) 0.2 x10^3/uL (0.0-0.2) 03/18/20 08:00 Baso # (Auto) 0.0 X10^3/uL (0.0-0.1) 03/18/20 08:00 Absolute Nucleated RBC 0.0 /100WBC 03/18/20 08:00 Sodium 138 mmol/L (136-145) 03/18/20 08:00 Corrected Sodium TNP 03/18/20 08:00 Potassium 4.1 mmol/L (3.5-5.1) 03/18/20 08:00 Chloride 106 mmol/L (98-107) 03/18/20 08:00 Carbon Dioxide 22.1 mmol/L (21-32) 03/18/20 08:00 BUN 17 mg/dL (7-18) 03/18/20 08:00 Creatinine 1.68 mg/dL (0.70-1.30) H 03/18/20 08:00 Est GFR (MDRD) Af Amer 53 (>60) L 03/18/20 08:00 Est GFR (MDRD) Non-Af 44 (>60) L 03/18/20 08:00 Glucose 100 mg/dL (65-99) H 03/18/20 08:00 Calcium 8.4 mg/dL (8.5-10.1) L 03/18/20 08:00 Corrected Calcium 9.0 mg/dL (8.5-10.1) 03/18/20 08:00 Iron 34 ug/dL (50-175) L 03/16/20 18:16 Transferrin 224 mg/dL (202-364) 03/16/20 18:16 Ferritin 81 ng/mL (26-388) 03/16/20 18:16 Total Bilirubin 0.50 mg/dL (0.2-1.0) 03/18/20 08:00 AST 38 Units/L (15-37) H 03/18/20 08:00 ALT 32 Units/L (12-78) 03/18/20 08:00 Alkaline Phosphatase 62 Units/L (46-116) 03/18/20 08:00 Total Protein 8.8 g/dL (6.4-8.2) H 03/18/20 08:00 Albumin 3.3 g/dL (3.4-5.0) L 03/18/20 08:00 Globulin 5.5 g/dL (2.5-4.5) H 03/18/20 08:00 Albumin/Globulin Ratio 0.6 Ratio (1.1-2.1) L 03/18/20 08:00 Vitamin B12 464 pg/mL (193-986) 03/16/20 18:16 Folate 19.9 ng/mL (>8.6) 03/16/20 18:16 Specimen Type Clean catch urine 03/16/20 20:20 Urine Color Pale yellow (YELLOW) 03/16/20 20:20 Urine Appearance Clear (CLEAR) 03/16/20 20:20 Urine pH 5.0 (5.0 - 8.0) 03/16/20 20:20 Ur Specific [place] 1.015 (1.000-1.030) 03/16/20 20:20 Urine Protein Negative (NEGATIVE) 03/16/20 20:20 Urine Glucose (UA) Negative (NEGATIVE) 03/16/20 20:20 Urine Ketones Negative (NEGATIVE) 03/16/20 20:20 Urine Occult Blood Negative (NEGATIVE) 03/16/20 20:20 Urine Nitrite Negative (NEGATIVE) 03/16/20 20:20 Urine Bilirubin Negative (NEGATIVE) 03/16/20 20:20 Urine Urobilinogen Normal (NORMAL) 03/16/20 20:20 Ur Leukocyte Esterase Negative (NEGATIVE) 03/16/20 20:20 Blood Type O NEGATIVE 03/16/20 18:16 Antibody Screen Negative 03/16/20 18:16 Crossmatch See Detail 03/16/20 18:16 - Plan (1) Symptomatic anemia Status: Acute Plan: TRANSFUSE PRBC X 2 UNITS PER PROTOCOL, OCCULT STOOL. PPI BID, REPEAT AM LABS, NPO FOR GI CONSULT. BP CONTROL, SUPPLEMENTAL O2, TELEMETRY (2) Hypertension Status: Acute Qualifiers: Hypertension type: essential hypertension Qualified Code(s): I10 - Essential (primary) hypertension (3) Weakness generalized Status: Acute
[2020-03-18 16:22] VITALS: BP 114/62
== END 2020-03-18 13:15 | disposition home health service (06) | DRG 358 ==
LOC: MED/SURG 17:19
PROVIDERS: ADMIT Internal Medicine; ATTEND Internal Medicine
PROC: [UNRECOGNIZED PROCEDURE] (2020-03-17 17:20)
DX: K55.21 Angiodysplasia of colon with hemorrhage; M19.90 Unspecified osteoarthritis, unspecified site; K20.8 Other esophagitis; K21.9 Gastro-esophageal reflux disease without esophagitis; J44.9 Chronic obstructive pulmonary disease, unspecified; I25.10 Atherosclerotic heart disease of native coronary artery without angina pectoris; R13.11 Dysphagia, oral phase; R53.1 Weakness; I10 Essential (primary) hypertension; D64.89 Other specified anemias
CPT/HCPCS: 36415; 36430; 71010; 71045; 80053; 81003; 82607; 82728; 82746; 83540; 84466; 85014; 85018; 85025; 86850; 86900; 86901; 86922; 93005; 94760; 97162; 97166; 97535; A4222; C9113; J2704; J7030; J7050; P9016

== ENCOUNTER 2020-05-07 13:52 | Observation (INO) ==
[2020-05-07 14:13] VITALS: BMI 23.5
--- NOTE | 2020-05-07 14:20 | DR.FEVERAD ---
HPI Time seen Time Seen by Provider: 05/07/20 13:57 HPI Comment HPI Comment: PATIENT IS 64YR OLD MALE IN ER WITH GENERALIZED WEAKNESS AND FEVER AT HOME. HE IS WEAK, CONFUSED AND IS FALLING DOWN A LOT. HE HAD PACE MAKER PLACED 2 WEEKS AGP. HE WEAK AND SLEEP A LOT. PATIENT IS IN REHAB BUT IS NOT ABLE TO DO THE ACTIVITIES. DENIES PAIN. Complaints/Symptoms Chief Complaint Doctor Comments: GENERALIZED WEAKNEE, FEVER AND FREQUENT FALLS TIMES 4 DAYS. COVID-19 Coronavirus risk:travel/contact w/high risk person: No Coronavirus symptoms experienced: Fever Nurses notes reviewed Nurses Notes Review: Yes Source History Provided: Patient Mode of Arrival Mode of Arrival: Wheelchair Timing Came on: Suddenly Duration Duration: Constant Duration: Days Severity Fever Severity/Quality: subjective Context Recent: None (PACE MAKER PLACED 2 WEEKS AGO.) Symptoms: Fever History of: None Modifying factors Modifying factors: Nothing Associated signs and symptoms Associated signs and symptoms: Weakness and Confusion PMH PMH Past Medical History: Anxiety, Coronary Artery Disease, GERD and Hypertension Past Surgical History: Yes Surgical History: Tonsillectomy Family History Family Medical History: Diabetes Mellitus, NE and Hypertension ROS Review of Systems Constitutional: See HPI, Fever, Malaise, Weakness, Fatigue and Loss of Appetite Eyes: No Symptoms Reported and See HPI; negative Blurred Vision and Diplopia ENTM: No Symptoms Reported and See HPI; negative Ear Pain, Nose Discharge, Nose Congestion and Throat Pain Respiratoy: No Symptoms Reported, See HPI and Short of Breath (ON EXERTION.); negative Moist Cough and Wheezing Cardiovascular: No Symptoms Reported and See HPI; negative Chest Pain and Edema Gastrointestinal/Abdominal: No Symptoms Reported and See HPI; negative Abdominal Pain, Diarrhea and Vomiting Genitourinary: No Symptoms Reported and See HPI; negative Dysuria Neurological: See HPI, Weakness and Problems Walking; negative Headache Musculoskeletal: See HPI and Back Pain; negative Muscle Pain Integumentary: No Symptoms Reported and See HPI; negative Change in Color and Rash Hematologic/Lymphatic: See HPI; negative Easy Bruising Endocrine: See HPI and Decreased Appetite Psychiatric: See HPI All Other Systems: Reviewed and Negative PE Vital Signs Vitals: Temperature 98.8 F Pulse Rate [Apical] 65 Pulse Rate 64 Respiratory Rate 25 Blood Pressure [Right Arm] 184/80 Blood Pressure 169/72 O2 Sat by Pulse Oximetry 100 General Limitations: Altered Mental Status General Appearance: Alert and In Distress (ON EXERTION.) Head Head Exam: Normal Inspection and Atraumatic Eyes Eye exam: Normal Appearance and PERRL; negative Scleral Icterus and Conjunctival Injection ENT ENT Exam: Normal Exam, Normal Oropharynx, Normal External Ear Exam and TM's Normal Bilaterally External Ear Exam: Normal External Inspection; negative Mastoid Tenderness TM/Canal Exam: Bilateral: Normal Nose Exam: Normal Nose Exam; negative Sinus Tenderness Mouth Exam: Other (NONE NOTED.) Teeth Exam: Dental Caries; negative Dental Tenderness # and Gingival Swelling Throat Exam: negative Tonsillar Erythema, Tonsillomegaly and Tonsillar Exudate Neck Neck Exam: Normal Inspection and Trachea Midline; negative Tenderness and Lymphadenopathy Respiratory Respiratory Exam: Normal Lung Sounds Bilat; negative Accessory Muscle Use and Chest Wall Tenderness Respiratory Exam: Bilateral: Rhonchi and Lower: Rhonchi Cardiovascular Cardiovascular Exam: Regular Rate, Normal Rhythm and Normal Heart Sounds; negative Systolic Murmur and Diastolic Murmur Abdominal Exam Abdominal Exam: Normal Inspection, Normal Bowel Sounds and Soft; negative Tenderness Extremities Extremities Exam: Normal Inspection and Normal Capillary Refill; negative Tenderness, Edema and Calf Tenderness Back Back Exam: Paraspinal Tenderness; negative Rashes Neurologic Neurological Exam: Alert and Motor Sensory Deficit Psychiatric Psychiatric Exam: Normal Affect and Flat Affect Skin Skin Exam: Dry MDM Additional Information Additional Information Obtained From: Family Differential Diagnosis Differential Diagnosis: CVA, Dehydration, Electrolyte disorder, Influenza, Myocardial Infarction, Pneumonia, Pyelonephritis, UTI, Sepsis and Viral syndrome COURSE Treatment Treatment: SEE ORDERS. Education/Counseling Education/Counseling: Patient Educated On: Diagnosis ROR Labs Reviewed Laboratory Results Reviewed?: Yes Result Diagrams: 05/10/20 04:23 05/10/20 04:23 Laboratory: 05/07/20 21:25 Urine,Clean Catch Urine Culture - Final Escherichia Coli 05/07/20 21:38 Blood Blood Culture - Preliminary 05/07/20 21:30 Blood Blood Culture - Preliminary WBC 6.3 X10^3/uL (3.6-10.0) 05/07/20 17:25 RBC 3.34 X10^6/uL (4.7-6.0) L 05/07/20 17:25 Hgb 9.4 g/dL (13.5-18.0) L 05/07/20 17:25 Hct 28.7 % (42.0-54.0) L 05/07/20 17:25 MCV 86.1 fL (80.0-100.0) 05/07/20 17:25 MCH 28.1 pg (27.0-34.0) 05/07/20 17: MCHC 32.7 g/dL (33.0-35.0) L 05/07/20 17:25 RDW 15.1 % (11.6-16.5) 05/07/20: Plt Count 167 X10^3/uL (150.0-450.0) 05/07/20 17:25 MPV 8.3 fL (7.4-11.0) 05/07/20 17:25 Neut % (Auto) 68.4 % (42.0-75.0) 05/07/20 17: Lymph % (Auto) 21.1 % (21.0-51.0) 05/07/20 17:25 [place] % (Auto) 9.0 % (0.0-13.0) 05/07/20 17:25 Eos % (Auto) 1.0 % (0.9-2.9) 05/07/20:25 Baso % (Auto) 0.5 % (0.2-1.0) 05/07/20:25 Neut # (Auto) 4.3 x10^3/uL (2.2-4.8) 05/07/20 17:25 Lymph # (Auto) 1.3 X10^3/uL (1.3-2.9) 05/07/20 17:25 [place] # (Auto) 0.6 x10^3/uL (0.3-0.8) 05/07/20 17:25 Eos # (Auto) 0.1 x10^3/uL (0.0-0.2) 05/07/20:25 Baso # (Auto) 0.0 X10^3/uL (0.0-0.1) 05/07/20: Absolute Nucleated RBC 0.1 /100WBC 05/07/20 17:25 Sodium 135 mmol/L (136-145) L 05/07/20 17:25 Corrected Sodium TNP 05/07/20 17:25 Potassium 3.9 mmol/L (3.5-5.1) 05/07/20 17:25 Chloride 100 mmol/L (98-107) 05/07/20 17:25 Carbon Dioxide 27.0 mmol/L (21-32) 05/07/20 17:25 BUN 13 mg/dL (7-18) 05/07/20 17:25 Creatinine 1.64 mg/dL (0.70-1.30) H 05/07/20 17:25 Est GFR (MDRD) Af Amer 54 (>60) L 05/07/20 17:25 Est GFR (MDRD) Non-Af 45 (>60) L 05/07/20 17:25 Glucose 107 mg/dL (65-99) H 05/07/20 17:25 Lactic Acid 1.5 mmol/L (0.4-2.0) 05/07/20 21:30 Calcium 8.7 mg/dL (8.5-10.1) 05/07/20 17:25 Corrected Calcium TNP 05/07/20 17:25 Total Bilirubin 0.40 mg/dL (0.2-1.0) 05/07/20 17:25 AST 31 Units/L (15-37) 05/07/20 17:25 ALT 15 Units/L (12-78) 05/07/20 17:25 Alkaline Phosphatase 73 Units/L (46-116) 05/07/20 17:25 Creatine Kinase 207 Units/L (39-308) 05/07/20 17:25 CK-MB (CK-2) 1.2 ng/mL (0-4.0) 05/07/20 17:25 CK/CKMB % Calc 0.6 % (<4) 05/07/20 17:25 Troponin I < 0.02 ng/mL (0-1.5) 05/07/20 17:25 C-Reactive Protein 41.50 mg/L (0-3.0) H 05/07/20 21:30 Total Protein 9.7 g/dL (6.4-8.2) H 05/07/20 17:25 Albumin 3.4 g/dL (3.4-5.0) 05/07/20 17:25 Globulin 6.3 g/dL (2.5-4.5) H 05/07/20 17:25 Albumin/Globulin Ratio 0.5 Ratio (1.1-2.1) L 05/07/20 17:25 Specimen Type Clean catch urine 05/07/20 21:25 Urine Color Yellow (YELLOW) 05/07/20 21: Urine Appearance Cloudy (CLEAR) 05/07/20 21: Urine pH 6.0 (5.0 - 8.0) 05/07/20 21:25 Ur Specific [place] 1.015 (1.000-1.030) 05/07/20 21:25 Urine Protein 2+ (NEGATIVE) 05/07/20 21: Urine Glucose (UA) Negative (NEGATIVE) 05/07/20 21: Urine Ketones Negative (NEGATIVE) 05/07/20 21: Urine Occult Blood 2+ (NEGATIVE) 05/07/20 21: Urine Nitrite Positive (NEGATIVE) 05/07/20: Urine Bilirubin Negative (NEGATIVE) 05/07/20 21: Urine Urobilinogen 1+ (NORMAL) 05/07/20 21: Ur Leukocyte Esterase 2+ (NEGATIVE) 05/07/20 21: Urine RBC 10-20 /HPF (0-3) A 05/07/20 21: Urine WBC 20-30 /HPF (0-5) A 05/07/20 21:25 Ur Squamous Epith Cells Rare /HPF (NEGATIVE) 05/07/20 21: Urine Bacteria 4+ /HPF (NEGATIVE) 05/07/20 21:25 Ur Culture Indicated? Yes/culture set up 05/07/20 21:25 RSV Nasal Swab Negative (NEGATIVE) 05/07/20 22:15 Influenza Type A Ag Negative-presumptive (NEGATIVE) 05/07/20 22:15 Influenza Type B Ag Negative-presumptive (NEGATIVE) 05/07/20 22:15 SARS-CoV-2 (PCR) Negative (NEGATIVE) 05/07/20 22:15 S. pyogenes (TEM-PCR) Not detected (NOT DETECT) 05/07/20 22:15 Other Results Comments: Findings: There is cerebral volume loss with nonspecific white matter hypoattenuation suggestive of chronic microvascular ischemic changes. Scattered hypodensities are present within the bilateral basal ganglia and thalami suggesting chronic lacunar infarcts that appear stable. No evidence of acute hemorrhage, midline shift, mass effect or abnormal extra-axial fluid collection. Prominence of the ventricles and cortical sulci is commensurate with volume loss.The soft tissues and osseous structures are unremarkable. The visualized paranasal sinuses are clear. IMPRESSION: 1. Cerebral volume loss and chronic ischemic changes as described without acute intracranial abnormality. XRAY XRAY Interpreted by: Radiologist (REPORT NOTED.) and Self X-ray Results: ORT EKG Rate: 68 [place]: Normal Rhythm: Junctional Block: None Hypertrophy: None ST: Old, Ant, Lat and Ischemia Opioid Opioid Risk Tool Age (Faisal box if 16-45): No History of Preadolescent Sexual Abuse: No Total: 0 Total Score Risk Category: Low Risk Copyright: [place] ANDA predicting aberrant behaviors Diagnosis Discharge Problem: Generalized weakness, Ataxia, Dehydration Fever Qualifiers: Fever type: unspecified Qualified Code(s): R50.9 - Fever, unspecified Instructions Forms: Excuse From Work Precautions for COVID19 Patient Portal Social Distancing
--- NOTE | 2020-05-07 15:16 | CT ---
HISTORY:Altered mental statusStudy: CT brain without contrastComparison:01/10/2020Technique:Multiple axial images of the brain were obtained without administration of IV contrast. Dose reduction techniques including Automated Exposure Control (AEC) and adjustment of mA and kV were utilized.Findings:There is cerebral volume loss with nonspecific white matter hypoattenuation suggestive of chronic microvascular ischemic changes. Scattered hypodensities are present within the bilateral basal ganglia and thalami suggesting chronic lacunar infarcts that appear stable. No evidence of acute hemorrhage, midline shift, mass effect or abnormal extra-axial fluid collection. Prominence of the ventricles and cortical sulci is commensurate with volume loss.The soft tissues and osseous structures are unremarkable. The visualized paranasal sinuses are clear.IMPRESSION:1. Cerebral volume loss and chronic ischemic changes as described without acute intracranial abnormality.Electronically signed by: MARA RAYMUNDO (May 07, 2020 15:14:42)
--- NOTE | 2020-05-07 15:24 | RAD ---
HISTORYSOBSTUDYCHEST, 1 VIEWCOMPARISONNoneFINDINGSThe trachea is midline. The cardiac silhouette is unremarkable . The lungs are relatively clear without focal infiltrate or effusion. The aortic knob is partially calcified. A left-sided cardiac pacemaker is demonstrated.IMPRESSIONNo acute cardiopulmonary disease.Electronically signed by: ELLA LANGFORD (May 07, 2020 15:23:15)
[2020-05-07 17:38] LABS: BASOPHILS % (AUTO) 0.5 % (0.2-1.0); EOSINOPHILS # (AUTO) 0.1 x10^3/uL (0.0-0.2); HEMATOCRIT 28.7 % (42.0-54.0); HEMOGLOBIN 9.4 g/dL (13.5-18.0); LYMPHOCYTES # (AUTO) 1.3 X10^3/uL (1.3-2.9); LYMPHOCYTES % (AUTO) 21.1 % (21.0-51.0); MEAN CORPUSCULAR HEMOGLOBIN 28.1 pg (27.0-34.0); MEAN CORPUSCULAR HGB CONC 32.7 g/dL (33.0-35.0); MEAN CORPUSCULAR VOLUME 86.1 fL (80.0-100.0); MEAN PLATELET VOLUME 8.3 fL (7.4-11.0); MONOCYTES # (AUTO) 0.6 x10^3/uL (0.3-0.8); NEUTROPHILS # (AUTO) 4.3 x10^3/uL (2.2-4.8); NEUTROPHILS % (AUTO) 68.4 % (42.0-75.0); PLATELET COUNT 167 X10^3/uL (150.0-450.0); RED BLOOD COUNT 3.34 X10^6/uL (4.7-6.0); RED CELL DISTRIBUTION WIDTH 15.1 % (11.6-16.5); WHITE BLOOD COUNT 6.3 X10^3/uL (3.6-10.0)
[2020-05-07 17:53] LABS: BLOOD UREA NITROGEN 13 mg/dL (7-18); CALCIUM 8.7 mg/dL (8.5-10.1); CHLORIDE 100 mmol/L (98-107); CREATININE 1.64 mg/dL (0.70-1.30); SODIUM 135 mmol/L (136-145); TROPONIN I < 0.02 ng/mL (0-1.5); eGFR NON BLACK RACES 45 (>60)
[2020-05-07 18:03] LABS: ALANINE AMINOTRANSFERASE 15 Units/L (12-78); ALBUMIN 3.4 g/dL (3.4-5.0); ALKALINE PHOSPHATASE 73 Units/L (46-116); ASPARTATE AMINO TRANSFERASE 31 Units/L (15-37); CKMB % 0.6 % (<4); CREATINE KINASE 207 Units/L (39-308); CREATINE KINASE MB 1.2 ng/mL (0-4.0); TOTAL PROTEIN 9.7 g/dL (6.4-8.2)
[2020-05-07] MEDS ORDERED: ZOSYN VIAL 3.375 GRAMS 3.375 G in NS 100 ML IV + SPIKE MINIBAG* 100 ML IV ONE (19:41)
[2020-05-07 21:53] LABS: BILIRUBIN,URINE NEGATIVE (NEGATIVE); BLOOD/HEMOGLOBIN,URINE 2+ (NEGATIVE); GLUCOSE, URINE NEGATIVE (NEGATIVE); KETONES,URINE NEGATIVE (NEGATIVE); LEUKOCYTE ESTERASE ,URINE 2+ (NEGATIVE); NITRITES,URINE POSITIVE (NEGATIVE); PROTEIN,URINE 2+ (NEGATIVE); UROBILINOGEN,URINE 1+ (NORMAL)
[2020-05-07 22:04] LABS: LACTIC ACID 1.5 mmol/L (0.4-2.0)
[2020-05-07 22:08] LABS: APPEARANCE,URINE CLOUDY (CLEAR); BACTERIA,URINE 4+ /HPF (NEGATIVE); COLOR,URINE YELLOW (YELLOW); SQUAMOUS EPITHELIAL CELL,UR RARE /HPF (NEGATIVE)
[2020-05-07 22:52] LABS: RSV AG DETECTION NEGATIVE (NEGATIVE)
[2020-05-08 00:17] LABS: CKMB % 0.5 % (<4); TROPONIN I 0.02 ng/mL (0-1.5)
[2020-05-08] MEDS ORDERED: NORCO 5/325 MG TAB PO PRN (02:33)
[2020-05-08] MEDS ORDERED: ULTRAM PO PRN (02:33)
[2020-05-08] MEDS ORDERED: ROCEPHIN VIAL 1 GRAM 1 G in NS 100 ML IV + SPIKE MINIBAG* 100 ML IV SCH (03:00)
[2020-05-08] MEDS ORDERED: NS 1000 ML 1,000 ML ONE (03:19)
[2020-05-08] MEDS ORDERED: NS 100 ML IV 100 ML IV ONE (03:20)
[2020-05-08] MEDS ORDERED: ROCEPHIN VIAL 1 GRAM ONE (03:20)
[2020-05-08] MEDS: NS 1000 ML 1,000 ML IV SCH (03:35)
[2020-05-08 05:44] LABS: BASOPHILS % (AUTO) 0.6 % (0.2-1.0); EOSINOPHILS # (AUTO) 0.1 x10^3/uL (0.0-0.2); EOSINOPHILS % (AUTO) 0.8 % (0.9-2.9); HEMATOCRIT 28.1 % (42.0-54.0); HEMOGLOBIN 9.4 g/dL (13.5-18.0); LYMPHOCYTES # (AUTO) 1.5 X10^3/uL (1.3-2.9); MEAN CORPUSCULAR HEMOGLOBIN 28.5 pg (27.0-34.0); MEAN CORPUSCULAR HGB CONC 33.3 g/dL (33.0-35.0); MEAN CORPUSCULAR VOLUME 85.7 fL (80.0-100.0); MEAN PLATELET VOLUME 9.3 fL (7.4-11.0); MONOCYTES # (AUTO) 0.6 x10^3/uL (0.3-0.8); MONOCYTES % (AUTO) 8.9 % (0.0-13.0); NEUTROPHILS # (AUTO) 4.5 x10^3/uL (2.2-4.8); NEUTROPHILS % (AUTO) 67.7 % (42.0-75.0); PLATELET COUNT 158 X10^3/uL (150.0-450.0); RED BLOOD COUNT 3.28 X10^6/uL (4.7-6.0); RED CELL DISTRIBUTION WIDTH 15.3 % (11.6-16.5); WHITE BLOOD COUNT 6.7 X10^3/uL (3.6-10.0)
[2020-05-08 06:13] LABS: ALANINE AMINOTRANSFERASE 13 Units/L (12-78); ALBUMIN 3.4 g/dL (3.4-5.0); ALKALINE PHOSPHATASE 71 Units/L (46-116); ASPARTATE AMINO TRANSFERASE 32 Units/L (15-37); BLOOD UREA NITROGEN 13 mg/dL (7-18); CALCIUM 8.8 mg/dL (8.5-10.1); CARBON DIOXIDE 22.2 mmol/L (21-32); CHLORIDE 99 mmol/L (98-107); CKMB % 0.5 % (<4); CREATINE KINASE 423 Units/L (39-308); CREATINE KINASE MB 1.9 ng/mL (0-4.0); CREATININE 1.59 mg/dL (0.70-1.30); MAGNESIUM 1.7 mg/dL (1.7-2.9); SODIUM 133 mmol/L (136-145); TOTAL PROTEIN 9.9 g/dL (6.4-8.2); TROPONIN I 0.02 ng/mL (0-1.5); eGFR NON BLACK RACES 47 (>60)
[2020-05-08] MEDS: PROTONIX TAB 40 MG PO SCH ×2 (08:47→20:05)
[2020-05-08] MEDS: COREG TAB 3.125 MG PO SCH ×2 (08:47→20:05)
[2020-05-08] MEDS: FERROUS GLUCONATE PO SCH ×2 (08:48→20:05)
[2020-05-08] MEDS: LIPITOR TAB 20 MG PO SCH (08:48)
[2020-05-08] MEDS: ZESTRIL TAB 10 MG PO SCH (08:48)
[2020-05-08] MEDS: SYNTHROID 25 mcg TAB PO SCH (08:48)
[2020-05-08] MEDS ORDERED: FERROUS SULFATE 324 MG PO SCH (09:00)
[2020-05-08 12:10] LABS: CKMB % 0.5 % (<4); CREATINE KINASE 207 Units/L (39-308); CREATINE KINASE MB < 1.0 ng/mL (0-4.0); TROPONIN I 0.02 ng/mL (0-1.5)
[2020-05-08] MEDS ORDERED: KLOR-CON PO PRN (15:03)
[2020-05-08] MEDS ORDERED: POTASSIUM CHLORIDE LIQ 20 MEQ UDC PO PRN (15:03)
[2020-05-08] MEDS ORDERED: MICRO K EXTEN CAP 10 MEQ PO PRN (15:03)
--- NOTE | 2020-05-08 16:58 | DR.H&P ---
H&P - History & Physical for Day of: H&P Date: 05/07/20 - Chief Complaint Chief Complaint: FEVER, WEAKNESS - History of Present Illness History of Present Illness: PT IS 64 BM ER ADMISSION AFTER PRESENTING WITH CO FEVER AND WEAKNESS. PT WAS HAD [facility] AND PT HAD FEVER AND WAS SENT TO ER FOR EVALUATION. REPORTS HE HAD A PACE MAKER PLACED ~2 WEEKS AGO IN [place]. PT HAD UTI IN ER. PT HAS PMH OF HTN, OA, GERD, ANEMIA, NPH, BPH AND CHF. PT HAD CT HEAD IN ER W/O ACUTE FINDINGS, RAPID COVID NEGATIVE. PT ADMITTED FOR TREATMENT OF ACUTE ILLNESS. - Past Medical History Past Medical History: Anemia, Anxiety, Coronary Artery Disease, Dementia, GERD, Hypertension - Past Surgical History Surgical History: Tonsillectomy - Family History Family Medical History: Diabetes Mellitus, [place], Hypertension - Social History Does patient currently use any type of tobacco product: Yes Have you used tobacco products in the last 12 months: Yes Type of Tobacco Use: Cigarettes Does any household member use tobacco: No Alcohol Use: None Drug Use: None - Medications Home Medications: No Known Drug Allergies Allergy (Verified 01/06/20 16:12) CONTINUE taking the following medications hydrocodone-acetaminophen 1 tab PO BID PRN 05/07/20 [History] tramadol 50 mg PO HS PRN 05/07/20 [History] - Review of Systems Constitutional: Fever, Weakness Eyes: No Symptoms Reported ENT: No Symptoms Reported Respiratory: Cough, Shortness of Breath. denies: Sputum Cardiovascular: denies: Chest Pain, Edema Gastrointestinal: No Symptoms Reported Genitourinary: No Symptoms Reported Musculoskeletal: No Symptoms Reported Skin: No Symptoms Reported Neurological: Weakness - Physical Exam Vital Signs: Temperature 98.7 F Pulse Rate [Apical] 67 Pulse Rate 64 Respiratory Rate 18 Blood Pressure [Right Arm] 127/71 Blood Pressure 169/72 O2 Sat by Pulse Oximetry 96 Oriented: Normal Eyes: Normal Ear: Normal Nose: Normal Throat: Normal Respiratory: Diminished Throughout Cardiovascular: Normal, Other (PACEMAKER PRESENT) : Normal Auscultation: Bowel Sounds: Normal Palpation: Normal Tenderness: Normal Skin: Decreased Turgur Musculoskeletal: Right, Left, Leg, Motor Deficit, Instability Mood Description: Calm Speech Pattern: Clear, Appropriate - Assessment/Plan (1) UTI (urinary tract infection) Status: Acute Plan: ADMIT, IV ZOSYN GIVEN IN ER. PT IS CURRENTLY ON IV ROCEPHIN 1GM DAILY. IV HYDRATION, VERIFY HOME MEDICATION. CXR ON ADMISSION, COVID 19 NEGATIVE ON ADMISSION DUE TO FEVER. BLOOD AND URINE CULTURE ORDERED. (2) Dehydration Status: Acute (3) BPH (benign prostatic hyperplasia) Qualifiers: Lower urinary tract symptom presence: unspecified whether lower urinary tract symptoms present Qualified Code(s): N40.0 - Benign prostatic hyperplasia without lower urinary tract symptoms Status: Chronic (4) Hypertension Qualifiers: Hypertension type: essential hypertension Qualified Code(s): I10 - Essential (primary) hypertension Status: Chronic - Allergies Allergies/Adverse Reactions: Allergies Allergy/AdvReac Type Severity Reaction Status Date / Time No Known Drug Allergies Allergy Verified 01/06/20 16:12
--- NOTE | 2020-05-08 17:03 | PCM.PROG ---
Progress Note - Progress Note for Day of Date of Exam: 05/08/20 - Subjective Subjective: PT IS 64 BM ER ADMISSION WITH UTI, DEHYDRATION AND WEAKNESS. PT HAD FEVER ON ADMISSION WITH NEGATIVE COVID OBTAINED IN ER. PT DENIES ANY SPUTUM PRODUCTION OR INCREASED SOB. PT HAD UTI, STARTED ON IV ROCEPHIN DAILY. PT RECEIVED ZOSYN IV X 1 DOSE IN ER. PT HOME MEDICATION VERIFIED AND RESUMED. PT CONTINUES WITH GENERALIZED WEAKNESS THIS AM, CT HEAD IN ER WAS NEGATIVE FOR ACUTE FINDING. BC AND UC OBTAINED. CREAT DOWN TO 1.59. WILL REPEAT AM LABS AND CXR. - Past Medical Family Social History Past Med/Fam/Surg Hx: No changes since H&P Allergies: Allergies No Known Drug Allergies Allergy (Verified 01/06/20 16:12) - Review of Systems ROS: No change since H&P - Vital Signs and I&O's Vital Signs: Temperature 98.7 F Pulse Rate [Apical] 67 Pulse Rate 64 Respiratory Rate 18 Blood Pressure [Right Arm] 127/71 Blood Pressure 169/72 O2 Sat by Pulse Oximetry 96 Intake and Output: Intake & Output 05/06/20 05/07/20 05/08/20 05/09/20 11:59 11:59 11:59 11:59 Intake Total 300 / 300 476 / 476 Balance 300 / 300 476 / 476 - Physical Exam Oriented: Normal Eyes: Normal Ear: Normal Nose: Normal Throat: Normal Respiratory: Diminished Cardiovascular: Normal, Other (PACEMAKER PRESENT) : Normal Auscultation: Bowel Sounds: Normal Tenderness: Normal Skin: Decreased Turgur Musculoskeletal: Right, Left, Leg, Motor Deficit, Instability Mood Description: Calm Speech Pattern: Clear, Appropriate - Laboratory and Diagnostics Result Diagrams: 05/08/20 04:00 05/08/20 04:00 Labs: Laboratory WBC 6.7 X10^3/uL (3.6-10.0) 05/08/20 04:00 RBC 3.28 X10^6/uL (4.7-6.0) L 05/08/20 04:00 Hgb 9.4 g/dL (13.5-18.0) L 05/08/20 04:00 Hct 28.1 % (42.0-54.0) L 05/08/20 04:00 MCV 85.7 fL (80.0-100.0) 05/08/20 04:00 MCH 28.5 pg (27.0-34.0) 05/08/20 04:00 MCHC 33.3 g/dL (33.0-35.0) 05/08/20 04:00 RDW 15.3 % (11.6-16.5) 05/08/20 04:00 Plt Count 158 X10^3/uL (150.0-450.0) 05/08/20 04:00 MPV 9.3 fL (7.4-11.0) 05/08/20 04:00 Neut % (Auto) 67.7 % (42.0-75.0) 05/08/20 04:00 Lymph % (Auto) 22.0 % (21.0-51.0) 05/08/20 04:00 [place] % (Auto) 8.9 % (0.0-13.0) 05/08/20 04:00 Eos % (Auto) 0.8 % (0.9-2.9) L 05/08/20 04:00 Baso % (Auto) 0.6 % (0.2-1.0) 05/08/20 04:00 Neut # (Auto) 4.5 x10^3/uL (2.2-4.8) 05/08/20 04:00 Lymph # (Auto) 1.5 X10^3/uL (1.3-2.9) 05/08/20 04:00 [place] # (Auto) 0.6 x10^3/uL (0.3-0.8) 05/08/20 04:00 Eos # (Auto) 0.1 x10^3/uL (0.0-0.2) 05/08/20 04:00 Baso # (Auto) 0.0 X10^3/uL (0.0-0.1) 05/08/20 04:00 Absolute Nucleated RBC 0.1 /100WBC 05/08/20 04:00 PT 14.5 SECONDS (11.8-14.3) 05/08/20 04:00 INR Target Range - 05/08/20 04:00 INR 1.16 (0.8-1.3) 05/08/20 04:00 APTT 35.9 SECONDS (22.9-36.5) 05/08/20 04:00 PTT Comment - 05/08/20 04:00 Sodium 133 mmol/L (136-145) L 05/08/20 04:00 Corrected Sodium TNP 05/08/20 04:00 Potassium 3.8 mmol/L (3.5-5.1) 05/08/20 04:00 Chloride 99 mmol/L (98-107) 05/08/20 04:00 Carbon Dioxide 22.2 mmol/L (21-32) 05/08/20 04:00 BUN 13 mg/dL (7-18) 05/08/20 04:00 Creatinine 1.59 mg/dL (0.70-1.30) H 05/08/20 04:00 Est GFR (MDRD) Af Amer 56 (>60) L 05/08/20 04:00 Est GFR (MDRD) Non-Af 47 (>60) L 05/08/20 04:00 Glucose 102 mg/dL (65-99) H 05/08/20 04:00 Lactic Acid 1.5 mmol/L (0.4-2.0) 05/07/20 21:30 Calcium 8.8 mg/dL (8.5-10.1) 05/08/20 04:00 Corrected Calcium TNP 05/08/20 04:00 Magnesium 1.7 mg/dL (1.7-2.9) 05/08/20 04:00 Iron 16 ug/dL (50-175) L 05/08/20 04:00 Transferrin 197 mg/dL (202-364) L 05/08/20 04:00 Ferritin 217 ng/mL (26-388) 05/08/20 04:00 Total Bilirubin 0.50 mg/dL (0.2-1.0) 05/08/20 04:00 AST 32 Units/L (15-37) 05/08/20 04:00 ALT 13 Units/L (12-78) 05/08/20 04:00 Alkaline Phosphatase 71 Units/L (46-116) 05/08/20 04:00 Creatine Kinase 207 Units/L (39-308) 05/08/20 11:32 CK-MB (CK-2) < 1.0 ng/mL (0-4.0) 05/08/20 11:32 CK/CKMB % Calc 0.5 % (<4) 05/08/20 11:32 Troponin I 0.02 ng/mL (0-1.5) 05/08/20 11:32 C-Reactive Protein 41.50 mg/L (0-3.0) H 05/07/20 21:30 Total Protein 9.9 g/dL (6.4-8.2) H 05/08/20 04:00 Albumin 3.4 g/dL (3.4-5.0) 05/08/20 04:00 Globulin 6.5 g/dL (2.5-4.5) H 05/08/20 04:00 Albumin/Globulin Ratio 0.5 Ratio (1.1-2.1) L 05/08/20 04:00 Vitamin B12 371 pg/mL (193-986) 05/08/20 04:00 Folate 19.2 ng/mL (>8.6) 05/08/20 04:00 Specimen Type Clean catch urine 05/07/20 21: Urine Color Yellow (YELLOW) 05/07/20 21: Urine Appearance Cloudy (CLEAR) 05/07/20 21: Urine pH 6.0 (5.0 - 8.0) 05/07/20 21: Ur Specific [place] 1.015 (1.000-1.030) 05/07/20 21: Urine Protein 2+ (NEGATIVE) 05/07/20 21: Urine Glucose (UA) Negative (NEGATIVE) 05/07/20 21: Urine Ketones Negative (NEGATIVE) 05/07/20 21: Urine Occult Blood 2+ (NEGATIVE) 05/07/20 21: Urine Nitrite Positive (NEGATIVE) 05/07/20 21: Urine Bilirubin Negative (NEGATIVE) 05/07/20 21: Urine Urobilinogen 1+ (NORMAL) 05/07/20 21: Ur Leukocyte Esterase 2+ (NEGATIVE) 05/07/20 21: Urine RBC 10-20 /HPF (0-3) A 05/07/20 21: Urine WBC 20-30 /HPF (0-5) A 05/07/20 21:25 Ur Squamous Epith Cells Rare /HPF (NEGATIVE) 05/07/20 21: Urine Bacteria 4+ /HPF (NEGATIVE) 05/07/20 21:25 Ur Culture Indicated? Yes/culture set up 05/07/20 21:25 RSV Nasal Swab Negative (NEGATIVE) 05/07/20 22:15 Influenza Type A Ag Negative-presumptive (NEGATIVE) 05/07/20 22:15 Influenza Type B Ag Negative-presumptive (NEGATIVE) 05/07/20 22:15 SARS-CoV-2 (PCR) Negative (NEGATIVE) 05/07/20 22:15 S. pyogenes (TEM-PCR) Not detected (NOT DETECT) 05/07/20 22:15 - Plan (1) UTI (urinary tract infection) Status: Acute Plan: AM LABS, IV ZOSYN GIVEN IN ER. PT IS CURRENTLY ON IV ROCEPHIN 1GM DAILY. IV HYDRATION, VERIFY HOME MEDICATION. CXR AM, COVID 19 NEGATIVE ON ADMISSION DUE TO FEVER. BLOOD AND URINE CULTURE ORDERED ON ADMISSION (2) Dehydration Status: Acute (3) BPH (benign prostatic hyperplasia) Status: Chronic Qualifiers: Lower urinary tract symptom presence: unspecified whether lower urinary tract symptoms present Qualified Code(s): N40.0 - Benign prostatic hyperplasia witho ut lower urinary tract symptoms (4) Hypertension Status: Chronic Qualifiers: Hypertension type: essential hypertension Qualified Code(s): I10 - Essential (primary) hypertension
[2020-05-08] MEDS ORDERED: K-DUR TAB 20 MEQ PO ONE (17:20)
[2020-05-08] MEDS ORDERED: MAGNESIUM SULFATE 1 GRAM/100 mL PREMIX 2 G/200 ML BAG IV ONE (17:21)
[2020-05-08] MEDS: MAGNESIUM SULFATE 1 GRAM/100 mL PREMIX 1 GM/100 ML BAG IV PRN ×2 (17:30→20:53)
[2020-05-08] MEDS: K-DUR TAB 20 MEQ PO PRN (17:54)
[2020-05-09] MEDS: ROCEPHIN VIAL 1 GRAM 1 G in NS 100 ML IV + SPIKE MINIBAG* 100 ML IV SCH (02:35)
[2020-05-09 05:13] LABS: BASOPHILS % (AUTO) 0.4 % (0.2-1.0); EOSINOPHILS # (AUTO) 0.1 x10^3/uL (0.0-0.2); EOSINOPHILS % (AUTO) 1.5 % (0.9-2.9); HEMATOCRIT 27.4 % (42.0-54.0); LYMPHOCYTES # (AUTO) 1.3 X10^3/uL (1.3-2.9); LYMPHOCYTES % (AUTO) 20.7 % (21.0-51.0); MEAN CORPUSCULAR HEMOGLOBIN 28.3 pg (27.0-34.0); MEAN CORPUSCULAR HGB CONC 32.9 g/dL (33.0-35.0); MEAN CORPUSCULAR VOLUME 86.1 fL (80.0-100.0); MEAN PLATELET VOLUME 9.2 fL (7.4-11.0); MONOCYTES # (AUTO) 0.6 x10^3/uL (0.3-0.8); MONOCYTES % (AUTO) 9.8 % (0.0-13.0); NEUTROPHILS # (AUTO) 4.2 x10^3/uL (2.2-4.8); NEUTROPHILS % (AUTO) 67.6 % (42.0-75.0); PLATELET COUNT 141 X10^3/uL (150.0-450.0); RED BLOOD COUNT 3.18 X10^6/uL (4.7-6.0); RED CELL DISTRIBUTION WIDTH 15.1 % (11.6-16.5); WHITE BLOOD COUNT 6.2 X10^3/uL (3.6-10.0)
[2020-05-09 05:21] LABS: ALBUMIN 2.9 g/dL (3.4-5.0); CALCIUM 8.4 mg/dL (8.5-10.1); CARBON DIOXIDE 23.5 mmol/L (21-32); COR CA(FOR HYPOALB) 9.3 mg/dL (8.5-10.1); CREATININE 1.58 mg/dL (0.70-1.30); MAGNESIUM 2.5 mg/dL (1.7-2.9); TOTAL PROTEIN 9.1 g/dL (6.4-8.2)
[2020-05-09] MEDS: NS 1000 ML 1,000 ML IV SCH (05:27)
--- NOTE | 2020-05-09 07:26 | RAD ---
HISTORYPneumoniaSTUDYAP [id number] normal heart size with clear lungs, symmetrically inflated . Stable position of pacing device. There is no evidence for pneumonia or CHF or large pleural effusi on.IMPRESSIONNo interval change or acute chest abnormality demonstrated.Electronically signed by: TOMASZ CRAWLEY (May 09, 2020 07:25:19)
[2020-05-09] MEDS: LIPITOR TAB 20 MG PO SCH (09:01)
[2020-05-09] MEDS: PROTONIX TAB 40 MG PO SCH ×2 (09:01→20:15)
[2020-05-09] MEDS: ZESTRIL TAB 10 MG PO SCH (09:02)
[2020-05-09] MEDS: FERROUS GLUCONATE PO SCH ×2 (09:02→20:16)
[2020-05-09] MEDS: SYNTHROID 25 mcg TAB PO SCH (09:02)
[2020-05-09] MEDS: K-DUR TAB 20 MEQ PO PRN (09:02)
[2020-05-09] MEDS: COREG TAB 3.125 MG PO SCH ×2 (09:02→20:15)
[2020-05-10] MEDS: ROCEPHIN VIAL 1 GRAM 1 G in NS 100 ML IV + SPIKE MINIBAG* 100 ML IV SCH (02:02)
[2020-05-10 05:35] LABS: BASOPHILS % (AUTO) 0.6 % (0.2-1.0); EOSINOPHILS # (AUTO) 0.3 x10^3/uL (0.0-0.2); EOSINOPHILS % (AUTO) 5.8 % (0.9-2.9); HEMATOCRIT 27.6 % (42.0-54.0); LYMPHOCYTES % (AUTO) 22.5 % (21.0-51.0); MEAN CORPUSCULAR HEMOGLOBIN 28.3 pg (27.0-34.0); MEAN CORPUSCULAR HGB CONC 32.7 g/dL (33.0-35.0); MEAN CORPUSCULAR VOLUME 86.5 fL (80.0-100.0); MEAN PLATELET VOLUME 9.3 fL (7.4-11.0); MONOCYTES # (AUTO) 0.5 x10^3/uL (0.3-0.8); MONOCYTES % (AUTO) 10.6 % (0.0-13.0); NEUTROPHILS # (AUTO) 2.6 x10^3/uL (2.2-4.8); NEUTROPHILS % (AUTO) 60.5 % (42.0-75.0); PLATELET COUNT 151 X10^3/uL (150.0-450.0); WHITE BLOOD COUNT 4.3 X10^3/uL (3.6-10.0)
[2020-05-10 05:38] LABS: ALANINE AMINOTRANSFERASE 20 Units/L (12-78); ALBUMIN 2.9 g/dL (3.4-5.0); ALKALINE PHOSPHATASE 72 Units/L (46-116); ASPARTATE AMINO TRANSFERASE 32 Units/L (15-37); BLOOD UREA NITROGEN 14 mg/dL (7-18); CALCIUM 8.3 mg/dL (8.5-10.1); CARBON DIOXIDE 23.1 mmol/L (21-32); CHLORIDE 104 mmol/L (98-107); COR CA(FOR HYPOALB) 9.2 mg/dL (8.5-10.1); CREATININE 1.66 mg/dL (0.70-1.30); SODIUM 136 mmol/L (136-145); TOTAL PROTEIN 8.9 g/dL (6.4-8.2); eGFR NON BLACK RACES 44 (>60)
[2020-05-10] MEDS: NS 1000 ML 1,000 ML IV SCH (05:47)
[2020-05-10] MEDS: COREG TAB 3.125 MG PO SCH (08:46)
[2020-05-10] MEDS: LIPITOR TAB 20 MG PO SCH (08:46)
[2020-05-10] MEDS: FERROUS GLUCONATE PO SCH (08:46)
[2020-05-10] MEDS: SYNTHROID 25 mcg TAB PO SCH (08:47)
[2020-05-10] MEDS: PROTONIX TAB 40 MG PO SCH (08:47)
[2020-05-10] MEDS: ZESTRIL TAB 10 MG PO SCH (08:47)
[2020-05-10 13:08] VITALS: BP 146/69
[2020-05-10] MEDS ORDERED: ZESTRIL TAB 10 MG PO STA (15:43)
[2020-05-10] MEDS ORDERED: LEVAQUIN TAB 500 MG PO ONE (15:46)
[2020-05-10] MEDS ORDERED: LEVAQUIN TAB 500 MG ONE (16:12)
[2020-05-10] MEDS ORDERED: ZESTRIL TAB 10 MG ONE (16:12)
[2020-05-11] MEDS ORDERED: ZESTRIL TAB 10 MG PO SCH (09:00)
== END 2020-05-10 18:24 | disposition home or self-care (01) ==
LOC: ER 13:52 → OBS 13:52 → MED/SURG 05-08 10:53
PROVIDERS: ADMIT Family Medicine; ATTEND Internal Medicine
CPT/HCPCS: 36415; 70450; 71010; 71045; 80053; 81001; 82550; 82553; 82607; 82728; 82746; 83540; 83605; 83735; 84466; 84484; 85025; 85610; 85730; 86140; 87040; 87086; 87088; 87186; 87400; 87420; 87635; 87651; 87804; 93005; 96365; 99284; A4216; A4222; G0378; J0696; J3475; J7030; J7050

== ENCOUNTER 2022-05-10 11:23 | Observation (INO) ==
[2022-05-10] MEDS ORDERED: ULTRAM PO PRN (13:14)
[2022-05-10] MEDS: ROCEPHIN VIAL 1 GRAM 1 G in NS 100 ML IV 100 ML IV SCH (13:45)
[2022-05-10] MEDS: PROTONIX INJ 40 MG VIAL IVP SCH (13:45)
[2022-05-10 14:08] LABS: BASOPHILS % (AUTO) 0.7 % (0.2-1.0); EOSINOPHILS # (AUTO) 0.1 x10^3/uL (0.0-0.2); EOSINOPHILS % (AUTO) 1.8 % (0.9-2.9); HEMATOCRIT 37.3 % (42.0-54.0); HEMOGLOBIN 12.9 g/dL (13.5-18.0); LYMPHOCYTES # (AUTO) 1.3 X10^3/uL (1.3-2.9); LYMPHOCYTES % (AUTO) 21.3 % (21.0-51.0); MEAN CORPUSCULAR HEMOGLOBIN 30.8 pg (27.0-34.0); MEAN CORPUSCULAR HGB CONC 34.5 g/dL (33.0-35.0); MEAN CORPUSCULAR VOLUME 89.5 fL (80.0-100.0); MEAN PLATELET VOLUME 8.4 fL (7.4-11.0); MONOCYTES # (AUTO) 0.6 x10^3/uL (0.3-0.8); MONOCYTES % (AUTO) 8.9 % (0.0-13.0); NEUTROPHILS # (AUTO) 4.3 x10^3/uL (2.2-4.8); NEUTROPHILS % (AUTO) 67.3 % (42.0-75.0); RED BLOOD COUNT 4.17 X10^6/uL (4.7-6.0); RED CELL DISTRIBUTION WIDTH 15.8 % (11.6-16.5); WHITE BLOOD COUNT 6.3 X10^3/uL (3.6-10.0)
[2022-05-10 14:18] LABS: ALANINE AMINOTRANSFERASE 28 Units/L (12-78); ALBUMIN 3.7 g/dL (3.4-5.0); ALKALINE PHOSPHATASE 99 Units/L (46-116); ASPARTATE AMINO TRANSFERASE 31 Units/L (15-37); BLOOD UREA NITROGEN 22 mg/dL (7-18); CALCIUM 8.9 mg/dL (8.5-10.1); CARBON DIOXIDE 25.8 mmol/L (21-32); CHLORIDE 102 mmol/L (98-107); CKMB % 1.3 % (<4); CREATINE KINASE 129 Units/L (39-308); CREATINE KINASE MB 1.7 ng/mL (0-4.0); CREATININE 1.64 mg/dL (0.70-1.30); SODIUM 137 mmol/L (136-145); eGFR NON BLACK RACES 45 (>60)
--- NOTE | 2022-05-10 14:23 | CT ---
HISTORYAMS, WEAKNESS[Altered mental status]Noncontrast head CT examination.Comparison: Head CT examination dated May 07, 2020.Technique:Multiple axial images of the brain were obtained from the skull base to the vertex without administration of IV contrast.Findings: There is altered cerebral CT density seen on images number 23 through 27 of series 6 within the right frontal high convexity of the precentral gyrus region of the brain. This is concerning for an evolving ischemic event/CVA. This should be correlated with MR imaging of the brain. There is a chronic appearing right basal ganglia lacunar ischemic events also observed. No other acute intracranial process seen. There is moderate sulcal and cisternal prominence as well as atherosclerotic change in the proximal intracranial carotid and vertebral arteries, which is not out of proportion to the patient's stated age. There is diffuse CT density alteration seen in the periventricular white matter of the high and mid-convexity, which is likely in the setting of small vessel disease and not out of proportion to the patient's stated age. There is [mild bilateral ex vacuo] ventricular dilatation without evidence for hydrocephalus or herniation syndrome. No midline shift is evident. No acute intraparenchymal hemorrhage or mass can be identified. If there remains a strong concern for any intra-cranial neoplasm, then follow-up with CT or MR imaging of the brain would be more sensitive to exclude any intra-cranial mass lesion. No extra-axial fluid collections are seen. No other alteration in the attenuation of the brain parenchyma can be identified to suggest acute or subacute ischemic change. However, if clinical symptoms are concerning for an acute CVA, then follow-up MRI with DWI sequencing is recommended. The extracranial structures [are unremarkable].IMPRESSION:Altered cerebral CT density seen on images number 23 through 27 of series 6 within the right frontal high convexity of the right precentral gyrus region of the brain. This is concerning for an evolving ischemic event/CVA. This finding should be correlated with MR imaging of the brain.Chronic appearing right basal ganglia lacunar ischemic events also observed. No other acute intracranial process or hemorrhage seen.Electronically signed by: SALMA ARRINGTON III (May 10, 2022 14:21:32)
[2022-05-10] MEDS: NS 1,000 ML IV 1,000 ML IV SCH (14:30)
[2022-05-10 15:20] LABS: BILIRUBIN,URINE NEGATIVE (NEGATIVE); BLOOD/HEMOGLOBIN,URINE 1+ (NEGATIVE); GLUCOSE, URINE NEGATIVE (NEGATIVE); KETONES,URINE NEGATIVE (NEGATIVE); LEUKOCYTE ESTERASE ,URINE 2+ (NEGATIVE); NITRITES,URINE NEGATIVE (NEGATIVE); PROTEIN,URINE 1+ (NEGATIVE); UROBILINOGEN,URINE NORMAL (NORMAL)
[2022-05-10 15:43] LABS: APPEARANCE,URINE HAZY (CLEAR); COLOR,URINE YELLOW (YELLOW); RBC,URINE 0-2 /HPF (0-3); SQUAMOUS EPITHELIAL CELL,UR MODERATE /HPF (NEGATIVE)
--- NOTE | 2022-05-10 15:43 | DR.H&P ---
H&P - History & Physical for Day of: H&P Date: 05/10/22 - Chief Complaint Chief Complaint: "I THINKI I HAD A STROKE" - History of Present Illness History of Present Illness: PT IS 66 BM, DIRECT ADMIT FROM DR HARLEY DAVISON OFFICE WITH REPORTS OF NEW ONSET RIGHT EYE VISION IMPAIRMENT THAT STARTED ON MondayMAY 06. PT CO MONDAY HIS RIGHT LEG WAS WEAK AND SPEECH SLOW AND SLURRED THIS MORNING. PT ACCOMPANIED BY CARE GIVEN WHO REPORTS HE HAD GOTTEN WORSE SINCE MONDAY. PT IS FOLLOWED BY DR WILSON AND RECENTLY HAD DEFIBRILLATOR CHECKED. PT HAS PMH OF AFIB, HTN, ANEMIA, OA, CAD AND COPD. PT ADMITTED FOR TREATMENT OF ACUTE ILLNESS. - Past Medical History Past Medical History: Hypertension, Dyslipidemia, GERD - Past Surgical History Surgical History: Tonsillectomy, Other - Family History Family Medical History: Diabetes Mellitus, Hypertension - Social History Does patient currently use any type of tobacco product: Yes Have you used tobacco products in the last 12 months: Yes Type of Tobacco Use: Cigarettes Does any household member use tobacco: Yes Alcohol Use: Occasionally Drug Use: None Risks, benefits, and alternatives of opioids discussed: No Prescription drug monitoring program results: PDMP reviewed and no concerns identified - Medications Home Medications: No Known Drug Allergies Allergy (Verified 10/12/21 16:03) CONTINUE taking the following medications carbidopa 25 mg-levodopa 100 mg tablet 1 tab PO QDAY 05/10/22 [History] magnesium oxide 400 mg (241.3 mg magnesium) tablet (MagOx) 400 mg PO DAILY 05/10/22 [History] - Review of Systems Constitutional: Weakness Eyes: No Symptoms Reported ENT: No Symptoms Reported Respiratory: Shortness of Breath, SOB with Excertion Cardiovascular: Paroxysmal Noc. Dyspnea, Light Headedness Gastrointestinal: Nausea Genitourinary: No Symptoms Reported Musculoskeletal: No Symptoms Reported Skin: No Symptoms Reported Neurological: Weakness, Change in Speech - Physical Exam Vital Signs: Blood Pressure [Right Arm] 147/73 Blood Pressure 156/74 Oriented: Normal Eyes: Blurred Vision Ear: Normal Nose: Normal Throat: Normal Respiratory: RLL Diminished, LLL Diminished Cardiovascular: Normal, Other. negative: Edema Skin: Decreased Turgur Musculoskeletal: Right, Back:Thoracic, Back:Lumbar, Motor Deficit Psychiatric: Anxiety Mood Description: Anxious Affect: Anxious Speech Pattern: Clear, Appropriate - Assessment/Plan (1) CVA (cerebral vascular accident) Status: Acute Plan: CT HEAD W/O ON ADMISSION. STATIN, ASPIRIN, PLAVIS THERAPY. PTOTSP EVALUATION. CARDIAC MONITORING, BP CONTROL. OBTAIN LAST CARDIAC STUDIES FROM DR WILSON, INCLUDING CAROTID STUDIES. VERIFY HOME MEDICATION (2) Right leg weakness Status: Acute (3) Speech impairment Status: Acute (4) UTI (urinary tract infection) Status: Acute (5) Generalized weakness Status: Acute (6) Hypertension Qualifiers: Hypertension type: essential hypertension Qualified Code(s): I10 - Essential (primary) hypertension Status: Chronic (7) BPH (benign prostatic hyperplasia) Qualifiers: Lower urinary tract symptom presence: unspecified whether lower urinary tract symptoms present Qualified Code(s): N40.0 - Benign prostatic hyperplasia without lower urinary tract symptoms Status: Chronic - Allergies Allergies/Adverse Reactions: Allergies Allergy/AdvReac Type Severity Reaction Status Date / Time No Known Drug Allergies Allergy Verified 10/12/21 16:03
[2022-05-10 15:44] LABS: BACTERIA,URINE 4+ /HPF (NEGATIVE)
--- NOTE | 2022-05-10 16:55 | RAD ---
HISTORYHX COPD, CAD, CHF Relevant Clinical InformationSTUDYCHEST, 1 VIEWCOMPARISONAP portable chest March 08, 2022.FINDINGSThe trachea is midline. The cardiac silhouette is unremarkable. Pacemaker is in place with the battery over the left anterior lateral thorax. The lungs are clear without focal infiltrate or effusion. Vascularity is normal. The bony thorax is unremarkable.IMPRESSIONNo acute cardiopulmonary findings and no change from the prior portable chest March 08, 2022..Electronically signed by: RANDELL MENDEZ (May 10, 2022 16:54:28)
[2022-05-10] MEDS: PLAVIX PO SCH (16:56)
[2022-05-10] MEDS: COREG TAB 3.125 MG PO SCH (20:51)
[2022-05-10] MEDS: PROVENTIL NEB TX 0.083% 2.5MG/ 3ML NEB SCH (21:00)
[2022-05-11 05:52] LABS: BASOPHILS # (AUTO) 0.1 X10^3/uL (0.0-0.1); BASOPHILS % (AUTO) 0.9 % (0.2-1.0); EOSINOPHILS # (AUTO) 0.1 x10^3/uL (0.0-0.2); EOSINOPHILS % (AUTO) 1.2 % (0.9-2.9); HEMATOCRIT 35.3 % (42.0-54.0); LYMPHOCYTES # (AUTO) 1.2 X10^3/uL (1.3-2.9); LYMPHOCYTES % (AUTO) 19.6 % (21.0-51.0); MEAN CORPUSCULAR HEMOGLOBIN 30.2 pg (27.0-34.0); MEAN CORPUSCULAR VOLUME 88.7 fL (80.0-100.0); MEAN PLATELET VOLUME 8.6 fL (7.4-11.0); MONOCYTES # (AUTO) 0.6 x10^3/uL (0.3-0.8); MONOCYTES % (AUTO) 9.8 % (0.0-13.0); NEUTROPHILS # (AUTO) 4.3 x10^3/uL (2.2-4.8); NEUTROPHILS % (AUTO) 68.5 % (42.0-75.0); RED BLOOD COUNT 3.97 X10^6/uL (4.7-6.0); RED CELL DISTRIBUTION WIDTH 15.9 % (11.6-16.5); WHITE BLOOD COUNT 6.3 X10^3/uL (3.6-10.0)
[2022-05-11 06:07] LABS: ALANINE AMINOTRANSFERASE 26 Units/L (12-78); ALBUMIN 3.4 g/dL (3.4-5.0); ALKALINE PHOSPHATASE 87 Units/L (46-116); ASPARTATE AMINO TRANSFERASE 28 Units/L (15-37); BLOOD UREA NITROGEN 22 mg/dL (7-18); CALCIUM 8.9 mg/dL (8.5-10.1); CARBON DIOXIDE 20.7 mmol/L (21-32); CHLORIDE 102 mmol/L (98-107); CREATININE 1.58 mg/dL (0.70-1.30); SODIUM 135 mmol/L (136-145); TOTAL PROTEIN 9.5 g/dL (6.4-8.2); eGFR NON BLACK RACES 47 (>60)
[2022-05-11] MEDS: PROTONIX INJ 40 MG VIAL IVP SCH (08:18)
[2022-05-11] MEDS: COREG TAB 3.125 MG PO SCH ×2 (08:18→21:22)
[2022-05-11] MEDS: PLAVIX PO SCH (08:19)
[2022-05-11] MEDS: LIPITOR TAB 20 MG PO SCH (08:19)
[2022-05-11] MEDS: ROCEPHIN VIAL 1 GRAM 1 G in NS 100 ML IV 100 ML IV SCH (08:19)
[2022-05-11] MEDS: PROVENTIL NEB TX 0.083% 2.5MG/ 3ML NEB SCH ×4 (08:25→20:58)
[2022-05-11] MEDS: SYNTHROID 25 mcg TAB PO SCH (09:13)
[2022-05-11] MEDS: ZESTRIL TAB 10 MG PO SCH (09:13)
[2022-05-11] MEDS: NS 1,000 ML IV 1,000 ML IV SCH (13:45)
[2022-05-12 06:02] LABS: BASOPHILS % (AUTO) 0.7 % (0.2-1.0); EOSINOPHILS # (AUTO) 0.1 x10^3/uL (0.0-0.2); EOSINOPHILS % (AUTO) 2.8 % (0.9-2.9); HEMATOCRIT 34.6 % (42.0-54.0); HEMOGLOBIN 11.6 g/dL (13.5-18.0); LYMPHOCYTES # (AUTO) 1.1 X10^3/uL (1.3-2.9); LYMPHOCYTES % (AUTO) 21.3 % (21.0-51.0); MEAN CORPUSCULAR HEMOGLOBIN 29.9 pg (27.0-34.0); MEAN CORPUSCULAR HGB CONC 33.5 g/dL (33.0-35.0); MEAN CORPUSCULAR VOLUME 89.2 fL (80.0-100.0); MEAN PLATELET VOLUME 8.6 fL (7.4-11.0); MONOCYTES # (AUTO) 0.8 x10^3/uL (0.3-0.8); MONOCYTES % (AUTO) 15.3 % (0.0-13.0); NEUTROPHILS % (AUTO) 59.9 % (42.0-75.0); RED BLOOD COUNT 3.87 X10^6/uL (4.7-6.0); RED CELL DISTRIBUTION WIDTH 15.9 % (11.6-16.5)
[2022-05-12 06:18] LABS: ALANINE AMINOTRANSFERASE 22 Units/L (12-78); ALBUMIN 3.1 g/dL (3.4-5.0); ALKALINE PHOSPHATASE 79 Units/L (46-116); ASPARTATE AMINO TRANSFERASE 28 Units/L (15-37); BLOOD UREA NITROGEN 28 mg/dL (7-18); CALCIUM 8.5 mg/dL (8.5-10.1); CARBON DIOXIDE 22.6 mmol/L (21-32); CHLORIDE 103 mmol/L (98-107); COR CA(FOR HYPOALB) 9.2 mg/dL (8.5-10.1); CREATININE 1.64 mg/dL (0.70-1.30); SODIUM 137 mmol/L (136-145); TOTAL PROTEIN 8.7 g/dL (6.4-8.2); eGFR NON BLACK RACES 45 (>60)
[2022-05-12] MEDS: PROVENTIL NEB TX 0.083% 2.5MG/ 3ML NEB SCH ×4 (08:20→20:20)
[2022-05-12] MEDS: SYNTHROID 25 mcg TAB PO SCH (10:00)
[2022-05-12] MEDS: PLAVIX PO SCH (10:00)
[2022-05-12] MEDS: PROTONIX INJ 40 MG VIAL IVP SCH (10:14)
[2022-05-12] MEDS: ROCEPHIN VIAL 1 GRAM 1 G in NS 100 ML IV 100 ML IV SCH (10:14)
[2022-05-12] MEDS: COREG TAB 3.125 MG PO SCH ×2 (10:14→21:44)
[2022-05-12] MEDS: LIPITOR TAB 20 MG PO SCH (10:14)
[2022-05-12] MEDS: ZESTRIL TAB 10 MG PO SCH (10:15)
[2022-05-12] MEDS: NICOTINE PATCH TD SCH (14:56)
[2022-05-12] MEDS: NS 1,000 ML IV 1,000 ML IV SCH (17:57)
--- NOTE | 2022-05-12 23:55 | PCM.PROG ---
Progress Note - Progress Note for Day of Date of Exam: 05/11/22 - Subjective Subjective: Patient is a 66 yo AAM who was admitted as per HPI. Patient is alert and oriented, speech is clear and appropriate. Patient reports difficulty swallowing. Patient cannot move left arm. Patient can move left lower ext however it is very weak 2/5. Patient continues to be continent. Spouse at be dside. PT working with patient. Patient pending rehab. - Past Medical Family Social History Past Med/Fam/Surg Hx: No changes since H&P Allergies: Allergies No Known Drug Allergies Allergy (Verified 10/12/21 16:03) - Review of Systems ROS: No change since H&P - Vital Signs and I&O's Vital Signs: Temperature 97.6 F Pulse Rate [Bilateral Radial] 68 Pulse Rate 52 Respiratory Rate 20 Blood Pressure [Left Arm] 145/65 Blood Pressure [Right Arm] 127/60 Blood Pressure 156/74 O2 Sat by Pulse Oximetry 94 Intake and Output: Intake & Output 05/09/22 05/10/22 05/11/22 05/12/22 23:59 23:59 23:59 23:59 Intake Total 150 / 150 1285 / 1285 1638 / 1638 Output Total 300 / 300 Balance 150 / 150 1285 / 1285 1338 / 1338 - Physical Exam Oriented: Normal Eyes: Blurred Vision Ear: Normal Nose: Normal Throat: Normal Respiratory: Normal Cardiovascular: Normal : Normal Auscultation: Bowel Sounds: Normal Palpation: Normal Tenderness: Normal Skin: Decreased Turgur Musculoskeletal: Left, Back:Thoracic, Back:Lumbar, Motor Deficit (Left arm paralysis, left lower ext 2/5 strength; right side normal. ) Psychiatric: Anxiety Mood Description: Anxious Affect: Anxious Speech Pattern: Clear, Appropriate - Laboratory and Diagnostics Result Diagrams: 05/12/22 00:53 05/12/22 05:34 Labs: 05/10/22 13:40 Blood Blood Culture - Preliminary 05/10/22 13:25 Blood Blood Culture - Preliminary 05/10/22 15:00 Urine,Clean Catch Urine Culture - Final Escherichia Coli Laboratory WBC 5.0 X10^3/uL (3.6-10.0) 05/12/22 00:53 RBC 3.87 X10^6/uL (4.7-6.0) L 05/12/22 00:53 Hgb 11.6 g/dL (13.5-18.0) L 05/12/22 00:53 Hct 34.6 % (42.0-54.0) L 05/12/22 00:53 MCV 89.2 fL (80.0-100.0) 05/12/22 00:53 MCH 29.9 pg (27.0-34.0) 05/12/22 00:53 MCHC 33.5 g/dL (33.0-35.0) 05/12/22 00:53 RDW 15.9 % (11.6-16.5) 05/12/22 00:53 Plt Count 136 X10^3/uL (150.0-450.0) L 05/12/22 00:53 MPV 8.6 fL (7.4-11.0) 05/12/22 00:53 Neut % (Auto) 59.9 % (42.0-75.0) 05/12/22 00:53 Lymph % (Auto) 21.3 % (21.0-51.0) 05/12/22 00:53 [place] % (Auto) 15.3 % (0.0-13.0) H 05/12/22 00:53 Eos % (Auto) 2.8 % (0.9-2.9) 05/12/22 00:53 Baso % (Auto) 0.7 % (0.2-1.0) 05/12/22 00:53 Neut # (Auto) 3.0 x10^3/uL (2.2-4.8) 05/12/22 00:53 Lymph # (Auto) 1.1 X10^3/uL (1.3-2.9) L 05/12/22 00:53 [place] # (Auto) 0.8 x10^3/uL (0.3-0.8) 05/12/22 00:53 Eos # (Auto) 0.1 x10^3/uL (0.0-0.2) 05/12/22 00:53 Baso # (Auto) 0.0 X10^3/uL (0.0-0.1) 05/12/22 00:53 Absolute Nucleated RBC 0.0 /100WBC 05/12/22 00:53 PT 13.8 SECONDS (11.8-14.3) 05/10/22 13:25 INR Target Range - 05/10/22 13:25 INR 1.09 (0.8-1.3) 05/10/22 13:25 APTT 29.3 SECONDS (22.9-36.5) 05/10/22 13:25 PTT Comment - 05/10/22 13:25 Sodium 137 mmol/L (136-145) 05/12/22 05:34 Corrected Sodium TNP 05/12/22 05:34 Potassium 4.6 mmol/L (3.5-5.1) 05/12/22 05:34 Chloride 103 mmol/L (98-107) 05/12/22 05:34 Carbon Dioxide 22.6 mmol/L (21-32) 05/12/22 05:34 BUN 28 mg/dL (7-18) H 05/12/22 05:34 Creatinine 1.64 mg/dL (0.70-1.30) H 05/12/22 05:34 Est GFR (MDRD) Af Amer 54 (>60) L 05/12/22 05:34 Est GFR (MDRD) Non-Af 45 (>60) L 05/12/22 05:34 Glucose 105 mg/dL (65-99) H 05/12/22 05:34 Calcium 8.5 mg/dL (8.5-10.1) 05/12/22 05:34 Corrected Calcium 9.2 mg/dL (8.5-10.1) 05/12/22 05:34 Total Bilirubin 0.30 mg/dL (0.2-1.0) 05/12/22 05:34 AST 28 Units/L (15-37) 05/12/22 05:34 ALT 22 Units/L (12-78) 05/12/22 05:34 Alkaline Phosphatase 79 Units/L (46-116) 05/12/22 05:34 Creatine Kinase 129 Units/L (39-308) 05/10/22 13:25 CK-MB (CK-2) 1.7 ng/mL (0-4.0) 05/10/22 13:25 CK/CKMB % Calc 1.3 % (<4) 05/10/22 13:25 Troponin I High Sens 52.2 ng/L (4.0-60.0) 05/10/22 13:25 Total Protein 8.7 g/dL (6.4-8.2) H 05/12/22 05:34 Albumin 3.1 g/dL (3.4-5.0) L 05/12/22 05:34 Globulin 5.6 g/dL (2.5-4.5) H 05/12/22 05:34 Albumin/Globulin Ratio 0.6 Ratio (1.1-2.1) L 05/12/22 05:34 Specimen Type Clean catch urine 05/10/22 15:00 Urine Color Yellow (YELLOW) 05/10/22 15:00 Urine Appearance Hazy (CLEAR) 05/10/22 15:00 Urine pH 5.0 (5.0 - 8.0) 05/10/22 15:00 Ur Specific [place] 1.015 (1.000-1.030) 05/10/22 15:00 Urine Protein 1+ (NEGATIVE) 05/10/22 15:00 Urine Glucose (UA) Negative (NEGATIVE) 05/10/22 15:00 Urine Ketones Negative (NEGATIVE) 05/10/22 15:00 Urine Blood 1+ (NEGATIVE) 05/10/22 15:00 Urine Nitrite Negative (NEGATIVE) 05/10/22 15:00 Urine Bilirubin Negative (NEGATIVE) 05/10/22 15:00 Urine Urobilinogen Normal (NORMAL) 05/10/22 15:00 Ur Leukocyte Esterase 2+ (NEGATIVE) 05/10/22 15:00 Urine RBC 0-2 /HPF (0-3) 05/10/22 15:00 Urine WBC 10-20 /HPF (0-5) A 05/10/22 15:00 Ur Squamous Epith Cells Moderate /HPF (NEGATIVE) 05/10/22 15:00 Urine Bacteria 4+ /HPF (NEGATIVE) 05/10/22 15:00 Ur Culture Indicated? Yes/culture set up 05/10/22 15:00 SARS-CoV-2 (PCR) Negative (NEGATIVE) 05/10/22 15:20 Influenza Type A (PCR) Negative (NEGATIVE) 05/10/22 15:20 Influenza Type B (PCR) Negative (NEGATIVE) 05/10/22 15:20 RSV (PCR) Negative (NEGATIVE) 05/10/22 15:20 - Plan (1) CVA (cerebral vascular accident) Status: Acute Plan: STATIN, ASPIRIN, PLAVIX THERAPY. PTOTSP EVALUATION. CARDIAC MONITORING, BP CONTROL. OBTAIN LAST CARDIAC STUDIES FROM DR WILSON, INCLUDING CAROTID STUDIES. VERIFY HOME MEDICATION (2) Hypertension Status: Chronic Qualifiers: Hypertension type: essential hypertension Qualified Code(s): I10 - Essential (primary) hypertension (3) UTI (urinary tract infection) Status: Acute (4) Left leg weakness Status: Acute
--- NOTE | 2022-05-13 00:09 | PCM.PROG ---
Progress Note - Progress Note for Day of Date of Exam: 05/12/22 - Subjective Subjective: Patient is a 66 yo AAM who was admitted as per HPI. Patient is alert and oriented, speech is clear and appropriate. Patient reports difficulty swallowing. Patient cannot move left arm. Patient can move left lower ext however it is very weak 2/5. Patient continues to be continent. Spouse at be dside. PT working with patient. Patient pending rehab. Patient had been holding head to right side since CVA however neck control appears to have improved from previous. - Past Medical Family Social History Past Med/Fam/Surg Hx: No changes since H&P Allergies: Allergies No Known Drug Allergies Allergy (Verified 10/12/21 16:03) - Review of Systems ROS: No change since H&P - Vital Signs and I&O's Vital Signs: Temperature 97.6 F Pulse Rate [Bilateral Radial] 68 Pulse Rate 52 Respiratory Rate 20 Blood Pressure [Left Arm] 145/65 Blood Pressure [Right Arm] 127/60 Blood Pressure 156/74 O2 Sat by Pulse Oximetry 94 Intake and Output: Intake & Output 05/10/22 05/11/22 05/12/22 05/13/22 23:59 23:59 23:59 23:59 Intake Total 150 / 150 1285 / 1285 1638 / 1638 Output Total 300 / 300 Balance 150 / 150 1285 / 1285 1338 / 1338 - Physical Exam Oriented: Normal Eyes: Blurred Vision Ear: Normal Nose: Normal Throat: Normal Respiratory: Normal Cardiovascular: Normal : Normal Auscultation: Bowel Sounds: Normal Palpation: Normal Tenderness: Normal Skin: Decreased Turgur Musculoskeletal: Left, Back:Thoracic, Back:Lumbar, Motor Deficit (Left arm paralysis, left lower ext 2/5 strength; right side normal. ) Psychiatric: Anxiety Mood Description: Anxious Affect: Anxious Speech Pattern: Clear, Appropriate - Laboratory and Diagnostics Result Diagrams: 05/12/22 00:53 05/12/22 05:34 Labs: 05/10/22 13:40 Blood Blood Culture - Preliminary 05/10/22 13:25 Blood Blood Culture - Preliminary 05/10/22 15:00 Urine,Clean Catch Urine Culture - Final Escherichia Coli Laboratory WBC 5.0 X10^3/uL (3.6-10.0) 05/12/22 00:53 RBC 3.87 X10^6/uL (4.7-6.0) L 05/12/22 00:53 Hgb 11.6 g/dL (13.5-18.0) L 05/12/22 00:53 Hct 34.6 % (42.0-54.0) L 05/12/22 00:53 MCV 89.2 fL (80.0-100.0) 05/12/22 00:53 MCH 29.9 pg (27.0-34.0) 05/12/22 00:53 MCHC 33.5 g/dL (33.0-35.0) 05/12/22 00:53 RDW 15.9 % (11.6-16.5) 05/12/22 00:53 Plt Count 136 X10^3/uL (150.0-450.0) L 05/12/22 00:53 MPV 8.6 fL (7.4-11.0) 05/12/22 00:53 Neut % (Auto) 59.9 % (42.0-75.0) 05/12/22 00:53 Lymph % (Auto) 21.3 % (21.0-51.0) 05/12/22 00:53 [place] % (Auto) 15.3 % (0.0-13.0) H 05/12/22 00:53 Eos % (Auto) 2.8 % (0.9-2.9) 05/12/22 00:53 Baso % (Auto) 0.7 % (0.2-1.0) 05/12/22 00:53 Neut # (Auto) 3.0 x10^3/uL (2.2-4.8) 05/12/22 00:53 Lymph # (Auto) 1.1 X10^3/uL (1.3-2.9) L 05/12/22 00:53 [place] # (Auto) 0.8 x10^3/uL (0.3-0.8) 05/12/22 00:53 Eos # (Auto) 0.1 x10^3/uL (0.0-0.2) 05/12/22 00:53 Baso # (Auto) 0.0 X10^3/uL (0.0-0.1) 05/12/22 00:53 Absolute Nucleated RBC 0.0 /100WBC 05/12/22 00:53 PT 13.8 SECONDS (11.8-14.3) 05/10/22 13:25 INR Target Range - 05/10/22 13:25 INR 1.09 (0.8-1.3) 05/10/22 13:25 APTT 29.3 SECONDS (22.9-36.5) 05/10/22 13:25 PTT Comment - 05/10/22 13:25 Sodium 137 mmol/L (136-145) 05/12/22 05:34 Corrected Sodium TNP 05/12/22 05:34 Potassium 4.6 mmol/L (3.5-5.1) 05/12/22 05:34 Chloride 103 mmol/L (98-107) 05/12/22 05:34 Carbon Dioxide 22.6 mmol/L (21-32) 05/12/22 05:34 BUN 28 mg/dL (7-18) H 05/12/22 05:34 Creatinine 1.64 mg/dL (0.70-1.30) H 05/12/22 05:34 Est GFR (MDRD) Af Amer 54 (>60) L 05/12/22 05:34 Est GFR (MDRD) Non-Af 45 (>60) L 05/12/22 05:34 Glucose 105 mg/dL (65-99) H 05/12/22 05:34 Calcium 8.5 mg/dL (8.5-10.1) 05/12/22 05:34 Corrected Calcium 9.2 mg/dL (8.5-10.1) 05/12/22 05:34 Total Bilirubin 0.30 mg/dL (0.2-1.0) 05/12/22 05:34 AST 28 Units/L (15-37) 05/12/22 05:34 ALT 22 Units/L (12-78) 05/12/22 05:34 Alkaline Phosphatase 79 Units/L (46-116) 05/12/22 05:34 Creatine Kinase 129 Units/L (39-308) 05/10/22 13:25 CK-MB (CK-2) 1.7 ng/mL (0-4.0) 05/10/22 13:25 CK/CKMB % Calc 1.3 % (<4) 05/10/22 13:25 Troponin I High Sens 52.2 ng/L (4.0-60.0) 05/10/22 13:25 Total Protein 8.7 g/dL (6.4-8.2) H 05/12/22 05:34 Albumin 3.1 g/dL (3.4-5.0) L 05/12/22 05:34 Globulin 5.6 g/dL (2.5-4.5) H 05/12/22 05:34 Albumin/Globulin Ratio 0.6 Ratio (1.1-2.1) L 05/12/22 05:34 Specimen Type Clean catch urine 05/10/22 15:00 Urine Color Yellow (YELLOW) 05/10/22 15:00 Urine Appearance Hazy (CLEAR) 05/10/22 15:00 Urine pH 5.0 (5.0 - 8.0) 05/10/22 15:00 Ur Specific [place] 1.015 (1.000-1.030) 05/10/22 15:00 Urine Protein 1+ (NEGATIVE) 05/10/22 15:00 Urine Glucose (UA) Negative (NEGATIVE) 05/10/22 15:00 Urine Ketones Negative (NEGATIVE) 05/10/22 15:00 Urine Blood 1+ (NEGATIVE) 05/10/22 15:00 Urine Nitrite Negative (NEGATIVE) 05/10/22 15:00 Urine Bilirubin Negative (NEGATIVE) 05/10/22 15:00 Urine Urobilinogen Normal (NORMAL) 05/10/22 15:00 Ur Leukocyte Esterase 2+ (NEGATIVE) 05/10/22 15:00 Urine RBC 0-2 /HPF (0-3) 05/10/22 15:00 Urine WBC 10-20 /HPF (0-5) A 05/10/22 15:00 Ur Squamous Epith Cells Moderate /HPF (NEGATIVE) 05/10/22 15:00 Urine Bacteria 4+ /HPF (NEGATIVE) 05/10/22 15:00 Ur Culture Indicated? Yes/culture set up 05/10/22 15:00 SARS-CoV-2 (PCR) Negative (NEGATIVE) 05/10/22 15:20 Influenza Type A (PCR) Negative (NEGATIVE) 05/10/22 15:20 Influenza Type B (PCR) Negative (NEGATIVE) 05/10/22 15:20 RSV (PCR) Negative (NEGATIVE) 05/10/22 15:20 - Plan (1) CVA (cerebral vascular accident) Status: Acute Plan: STATIN, ASPIRIN, PLAVIX THERAPY. PTOTSP EVALUATION. CARDIAC MONITORING, BP CONTROL. OBTAIN LAST CARDIAC STUDIES FROM DR WILSON, INCLUDING CAROTID STUDIES. VERIFY HOME MEDICATION (2) Hypertension Status: Chronic Qualifiers: Hypertension type: essential hypertension Qualified Code(s): I10 - Essential (primary) hypertension (3) UTI (urinary tract infection) Status: Acute Plan: IV abx, rocephin (4) Left leg weakness Status: Acute
[2022-05-13 06:30] LABS: BASOPHILS % (AUTO) 0.7 % (0.2-1.0); EOSINOPHILS # (AUTO) 0.2 x10^3/uL (0.0-0.2); HEMATOCRIT 33.6 % (42.0-54.0); HEMOGLOBIN 11.4 g/dL (13.5-18.0); LYMPHOCYTES % (AUTO) 24.2 % (21.0-51.0); MEAN CORPUSCULAR HEMOGLOBIN 30.1 pg (27.0-34.0); MEAN CORPUSCULAR HGB CONC 33.8 g/dL (33.0-35.0); MEAN CORPUSCULAR VOLUME 89.2 fL (80.0-100.0); MEAN PLATELET VOLUME 8.7 fL (7.4-11.0); MONOCYTES # (AUTO) 0.5 x10^3/uL (0.3-0.8); MONOCYTES % (AUTO) 12.6 % (0.0-13.0); NEUTROPHILS # (AUTO) 2.4 x10^3/uL (2.2-4.8); NEUTROPHILS % (AUTO) 57.5 % (42.0-75.0); RED BLOOD COUNT 3.77 X10^6/uL (4.7-6.0); RED CELL DISTRIBUTION WIDTH 15.4 % (11.6-16.5); WHITE BLOOD COUNT 4.2 X10^3/uL (3.6-10.0)
[2022-05-13 06:53] LABS: ALANINE AMINOTRANSFERASE 24 Units/L (12-78); ALBUMIN 2.9 g/dL (3.4-5.0); ALKALINE PHOSPHATASE 95 Units/L (46-116); ASPARTATE AMINO TRANSFERASE 41 Units/L (15-37); BLOOD UREA NITROGEN 29 mg/dL (7-18); CALCIUM 8.4 mg/dL (8.5-10.1); CARBON DIOXIDE 19.7 mmol/L (21-32); CHLORIDE 106 mmol/L (98-107); COR CA(FOR HYPOALB) 9.3 mg/dL (8.5-10.1); CREATININE 1.56 mg/dL (0.70-1.30); SODIUM 136 mmol/L (136-145); TOTAL PROTEIN 8.3 g/dL (6.4-8.2); eGFR NON BLACK RACES 47 (>60)
[2022-05-13] MEDS: LIPITOR TAB 20 MG PO SCH (08:01)
[2022-05-13] MEDS: COREG TAB 3.125 MG PO SCH (08:01)
[2022-05-13] MEDS: PLAVIX PO SCH (08:02)
[2022-05-13] MEDS: PROTONIX INJ 40 MG VIAL IVP SCH (08:02)
[2022-05-13] MEDS: NICOTINE PATCH TD SCH (08:02)
[2022-05-13] MEDS: SYNTHROID 25 mcg TAB PO SCH (08:03)
[2022-05-13] MEDS: ZESTRIL TAB 10 MG PO SCH (08:03)
[2022-05-13] MEDS: ROCEPHIN VIAL 1 GRAM 1 G in NS 100 ML IV 100 ML IV SCH (08:03)
[2022-05-13] MEDS: PROVENTIL NEB TX 0.083% 2.5MG/ 3ML NEB SCH ×2 (08:40→12:01)
[2022-05-13] MEDS: NS 1,000 ML IV 1,000 ML IV SCH (13:24)
[2022-05-13 15:50] VITALS: BP 130/64
== END 2022-05-13 15:55 | disposition home or self-care (01) ==
LOC: MED/SURG
PROVIDERS: ADMIT Internal Medicine; ATTEND Internal Medicine

== ENCOUNTER 2022-06-06 11:33 | Observation (INO) ==
[2022-06-06 13:00] LABS: BASOPHILS % (AUTO) 0.9 % (0.2-1.0); EOSINOPHILS # (AUTO) 0.1 x10^3/uL (0.0-0.2); EOSINOPHILS % (AUTO) 2.6 % (0.9-2.9); HEMATOCRIT 37.1 % (42.0-54.0); HEMOGLOBIN 12.5 g/dL (13.5-18.0); LYMPHOCYTES # (AUTO) 1.7 X10^3/uL (1.3-2.9); LYMPHOCYTES % (AUTO) 31.7 % (21.0-51.0); MEAN CORPUSCULAR HEMOGLOBIN 30.5 pg (27.0-34.0); MEAN CORPUSCULAR HGB CONC 33.8 g/dL (33.0-35.0); MEAN CORPUSCULAR VOLUME 90.3 fL (80.0-100.0); MEAN PLATELET VOLUME 8.1 fL (7.4-11.0); MONOCYTES # (AUTO) 0.7 x10^3/uL (0.3-0.8); NEUTROPHILS # (AUTO) 2.9 x10^3/uL (2.2-4.8); NEUTROPHILS % (AUTO) 52.8 % (42.0-75.0); RED BLOOD COUNT 4.11 X10^6/uL (4.7-6.0); RED CELL DISTRIBUTION WIDTH 15.5 % (11.6-16.5); WHITE BLOOD COUNT 5.5 X10^3/uL (3.6-10.0)
[2022-06-06 13:16] LABS: ALANINE AMINOTRANSFERASE 41 Units/L (12-78); ALBUMIN 3.5 g/dL (3.4-5.0); ALKALINE PHOSPHATASE 94 Units/L (46-116); ASPARTATE AMINO TRANSFERASE 35 Units/L (15-37); BLOOD UREA NITROGEN 29 mg/dL (7-18); CALCIUM 9.2 mg/dL (8.5-10.1); CARBON DIOXIDE 26.6 mmol/L (21-32); CHLORIDE 103 mmol/L (98-107); CREATININE 1.92 mg/dL (0.70-1.30); MAGNESIUM 2.3 mg/dL (1.7-2.9); SODIUM 136 mmol/L (136-145); TOTAL PROTEIN 9.9 g/dL (6.4-8.2); eGFR NON BLACK RACES 37 (>60)
[2022-06-06] MEDS ORDERED: PROVENTIL NEB TX 0.083% 2.5MG/ 3ML NEB PRN (13:39)
[2022-06-06] MEDS: NS 1,000 ML IV 1,000 ML IV SCH (16:42)
[2022-06-06] MEDS: ROBITUSSIN DM PO SCH ×3 (16:42→20:39)
[2022-06-06] MEDS: ROCEPHIN VIAL 1 GRAM 1 G in NS 100 ML IV 100 ML IV SCH (16:42)
[2022-06-06] MEDS ORDERED: ULTRAM PO PRN (17:40)
--- NOTE | 2022-06-06 17:46 | DR.H&P ---
H&P - History & Physical for Day of: H&P Date: 06/06/22 - Chief Complaint Chief Complaint: COUGH, RIGHT SIDE CHEST PAIN, FEVER - History of Present Illness History of Present Illness: PT IS 66 BM, DIRECT ADMIT FROM DR SOUZA OFFICE AFTER PRESENTING WITH CO FALL OVER THE WEEKEND RESULTING IN RIGHT RIB FRACTURES. PT CO VERY PAINFUL RESPIRATIONS ON COUGHING. PT HAD FEVER IN OFFICE WITH CO URINARY FREQUENCY AND URGENCY. PT HAS RECENT PMH OF CVA, CHRONIC AFIB, PACEMAKER, HTN, OA, HYPERLIPIDEMIA, AND ANEMIA. PT ADMITTED FOR TREATMENT AND EVALUATION OF ACUTE ILLNESS. - Past Medical History Past Medical History: Hypertension, Dyslipidemia, Depression, Anxiety, Hypothyroidism, Anemia, CVA, COPD, GERD - Past Surgical History Surgical History: Other, Tonsillectomy - Family History Family Medical History: Hypertension - Social History Does patient currently use any type of tobacco product: Yes Have you used tobacco products in the last 12 months: Yes Type of Tobacco Use: Cigarettes Does any household member use tobacco: No Alcohol Use: None Drug Use: None - Medications Home Medications: No Known Drug Allergies Allergy (Verified 10/12/21 16:03) - Review of Systems Constitutional: Fever, Weakness, Malaise Eyes: No Symptoms Reported ENT: No Symptoms Reported Respiratory: Cough, SOB with Excertion, Pleuritic Pain Cardiovascular: Chest Pain Gastrointestinal: No Symptoms Reported Genitourinary: Frequency, Incontinence Musculoskeletal: Back Pain Skin: Bruising Neurological: Weakness - Physical Exam Vital Signs: Temperature 98.5 F Pulse Rate [Left Radial] 91 Respiratory Rate 20 Blood Pressure [Left Arm] 177/78 Blood Pressure [Right Arm] 127/60 Blood Pressure 130/68 O2 Sat by Pulse Oximetry 99 Oriented: Normal Eyes: Normal Ear: Normal Nose: Normal Throat: Normal Respiratory: RLL Diminished, LLL Diminished Cardiovascular: Other (PACER PRESENT) : Normal Auscultation: Bowel Sounds: Normal Palpation: Normal Tenderness: Normal Skin: Decreased Turgur, Bruising (RIGHT LATERAL RIBS) Musculoskeletal: Right (RIBS), Back:Thoracic, Back:Lumbar, Motor Deficit (LUE), Sensory Deficit Psychiatric: Anxiety Speech Pattern: Appropriate, Slurred (MILD, CHRONIC FROM RECENT CVA) - Assessment/Plan (1) Fever Qualifiers: Fever type: unspecified Qualified Code(s): R50.9 - Fever, unspecified Status: Acute Plan: ADMIT, BLOOD AND URINE CULTURES ON ADMISSION, GENTL IV HYDRATION. I&OS, RESP SWAB ON ADMISSION. CXR ON ADMISSION, RESP CONSULT. IV ATBX THERAPY, VERIFY HOME MEDICATION AND RESUME. BP CONTROL, PT/OT, PAIN CONTROL (2) Bronchitis Status: Acute (3) Right rib fracture Status: Acute (4) UTI (urinary tract infection) Status: Acute (5) Generalized weakness Status: Acute (6) CHF (congestive heart failure), NYHA class II Qualifiers: Congestive heart failure type: unspecified Qualified Code(s): I50.9 - Heart failure, unspecified Status: Acute (7) CVA, old, disturbances of vision Status: Acute (8) Hypertension Qualifiers: Hypertension type: essential hypertension Qualified Code(s): I10 - Essential (primary) hypertension Status: Chronic - Allergies Allergies/Adverse Reactions: Allergies Allergy/AdvReac Type Severity Reaction Status Date / Time No Known Drug Allergies Allergy Verified 10/12/21 16:03
[2022-06-06] MEDS ORDERED: MORPHINE SULFATE INJ 2 MG INJ IVP PRN (17:50)
[2022-06-06 18:10] LABS: BILIRUBIN,URINE NEGATIVE (NEGATIVE); BLOOD/HEMOGLOBIN,URINE NEGATIVE (NEGATIVE); GLUCOSE, URINE NEGATIVE (NEGATIVE); KETONES,URINE NEGATIVE (NEGATIVE); LEUKOCYTE ESTERASE ,URINE NEGATIVE (NEGATIVE); NITRITES,URINE NEGATIVE (NEGATIVE); PROTEIN,URINE NEGATIVE (NEGATIVE); UROBILINOGEN,URINE NORMAL (NORMAL)
[2022-06-06 18:14] LABS: APPEARANCE,URINE CLEAR (CLEAR); COLOR,URINE YELLOW (YELLOW)
--- NOTE | 2022-06-06 20:35 | RAD ---
HISTORYCough and shortness of breath. Relevant Clinical InformationSTUDYCHEST, 1 VIEWCOMPARISONFINDINGSThe trachea is midline. The cardiac silhouette is unremarkable. There is some minimal stranding in the right midlung suggestive subsegmental atelectasis. The lungs are otherwise clear without focal infiltrate or effusion. The bony thorax is unremarkable.IMPRESSIONEvidence for pneumonia. Minimal right subsegmental atelectasis.Electronically signed by: Horace Shrestha (Jun 06, 2022 20:33:58)
[2022-06-06] MEDS: PROTONIX TAB 40 MG PO SCH (20:39)
[2022-06-06] MEDS: COREG TAB 3.125 MG PO SCH (20:39)
[2022-06-06] MEDS: PERIACTIN TAB 4 MG PO SCH (20:40)
[2022-06-07 06:17] LABS: BASOPHILS % (AUTO) 0.4 % (0.2-1.0); EOSINOPHILS # (AUTO) 0.1 x10^3/uL (0.0-0.2); EOSINOPHILS % (AUTO) 2.6 % (0.9-2.9); HEMATOCRIT 34.6 % (42.0-54.0); HEMOGLOBIN 11.8 g/dL (13.5-18.0); LYMPHOCYTES # (AUTO) 0.4 X10^3/uL (1.3-2.9); MEAN CORPUSCULAR HEMOGLOBIN 30.6 pg (27.0-34.0); MEAN CORPUSCULAR HGB CONC 34.2 g/dL (33.0-35.0); MEAN CORPUSCULAR VOLUME 89.3 fL (80.0-100.0); MEAN PLATELET VOLUME 8.4 fL (7.4-11.0); MONOCYTES # (AUTO) 0.5 x10^3/uL (0.3-0.8); MONOCYTES % (AUTO) 9.4 % (0.0-13.0); NEUTROPHILS # (AUTO) 3.9 x10^3/uL (2.2-4.8); NEUTROPHILS % (AUTO) 78.6 % (42.0-75.0); RED BLOOD COUNT 3.87 X10^6/uL (4.7-6.0); RED CELL DISTRIBUTION WIDTH 15.3 % (11.6-16.5); WHITE BLOOD COUNT 4.9 X10^3/uL (3.6-10.0)
[2022-06-07 06:23] LABS: ALBUMIN 3.1 g/dL (3.4-5.0); CALCIUM 8.7 mg/dL (8.5-10.1); CARBON DIOXIDE 20.9 mmol/L (21-32); COR CA(FOR HYPOALB) 9.4 mg/dL (8.5-10.1); CREATININE 1.73 mg/dL (0.70-1.30); TOTAL PROTEIN 9.3 g/dL (6.4-8.2)
[2022-06-07] MEDS: SINEMET (PLAIN) 25/100 MG PO SCH (09:53)
[2022-06-07] MEDS: COREG TAB 3.125 MG PO SCH ×2 (09:53→20:59)
[2022-06-07] MEDS: LIPITOR TAB 20 MG PO SCH (09:54)
[2022-06-07] MEDS: ROCEPHIN VIAL 1 GRAM 1 G in NS 100 ML IV 100 ML IV SCH (09:54)
[2022-06-07] MEDS: PERIACTIN TAB 4 MG PO SCH ×2 (09:54→20:59)
[2022-06-07] MEDS: PROTONIX TAB 40 MG PO SCH ×2 (09:54→20:59)
[2022-06-07] MEDS: ROBITUSSIN DM PO SCH ×4 (09:54→21:05)
[2022-06-07] MEDS: SYNTHROID 25 mcg TAB PO SCH (09:54)
[2022-06-07] MEDS: NS 1,000 ML IV 1,000 ML IV SCH ×2 (10:10→17:00)
[2022-06-08 05:19] LABS: BASOPHILS % (AUTO) 0.5 % (0.2-1.0); EOSINOPHILS # (AUTO) 0.3 x10^3/uL (0.0-0.2); EOSINOPHILS % (AUTO) 6.2 % (0.9-2.9); HEMATOCRIT 32.4 % (42.0-54.0); LYMPHOCYTES # (AUTO) 1.1 X10^3/uL (1.3-2.9); MEAN CORPUSCULAR HEMOGLOBIN 29.9 pg (27.0-34.0); MEAN CORPUSCULAR HGB CONC 33.9 g/dL (33.0-35.0); MEAN CORPUSCULAR VOLUME 88.3 fL (80.0-100.0); MEAN PLATELET VOLUME 8.1 fL (7.4-11.0); MONOCYTES # (AUTO) 0.5 x10^3/uL (0.3-0.8); MONOCYTES % (AUTO) 12.7 % (0.0-13.0); NEUTROPHILS # (AUTO) 2.4 x10^3/uL (2.2-4.8); NEUTROPHILS % (AUTO) 55.6 % (42.0-75.0); RED BLOOD COUNT 3.67 X10^6/uL (4.7-6.0); WHITE BLOOD COUNT 4.2 X10^3/uL (3.6-10.0)
[2022-06-08 05:35] LABS: ALANINE AMINOTRANSFERASE 27 Units/L (12-78); ALBUMIN 3.1 g/dL (3.4-5.0); ALKALINE PHOSPHATASE 77 Units/L (46-116); ASPARTATE AMINO TRANSFERASE 34 Units/L (15-37); BLOOD UREA NITROGEN 23 mg/dL (7-18); CALCIUM 8.5 mg/dL (8.5-10.1); CARBON DIOXIDE 21.7 mmol/L (21-32); CHLORIDE 102 mmol/L (98-107); COR CA(FOR HYPOALB) 9.2 mg/dL (8.5-10.1); SODIUM 133 mmol/L (136-145); TOTAL PROTEIN 8.9 g/dL (6.4-8.2); eGFR NON BLACK RACES 43 (>60)
[2022-06-08 05:44] LABS: BAND NEUTROPHILS % 2 % (0-10); METAMYELOCYTES % 2; PLATELET MORPHOLOGY COMMENT NORMAL (NORMAL)
[2022-06-08] MEDS ORDERED: NS 100 ML IV 100 ML ONE (07:24)
[2022-06-08] MEDS: COREG TAB 3.125 MG PO SCH ×2 (09:16→20:42)
[2022-06-08] MEDS: SINEMET (PLAIN) 25/100 MG PO SCH (09:16)
[2022-06-08] MEDS: SYNTHROID 25 mcg TAB PO SCH (09:16)
[2022-06-08] MEDS: PROTONIX TAB 40 MG PO SCH ×2 (09:16→20:42)
[2022-06-08] MEDS: LIPITOR TAB 20 MG PO SCH (09:16)
[2022-06-08] MEDS: PERIACTIN TAB 4 MG PO SCH ×2 (09:17→20:43)
[2022-06-08] MEDS: ROBITUSSIN DM PO SCH ×3 (09:17→20:52)
[2022-06-08] MEDS: ROCEPHIN VIAL 1 GRAM 1 G in NS 100 ML IV 100 ML IV SCH (09:18)
--- NOTE | 2022-06-08 13:37 | RAD ---
HISTORYPneumoniaSTUDYPortable AP [id number]/01/2022FINDINGSCardiac size normal with clear lungs and pleural spaces. There is no evidence for pneumonia, atelectasis, pleural fluid or CHF.IMPRESSIONNo acute findings.Electronically signed by: CINDA CRAWLEY (Jun 08, 2022 13:36:04)
[2022-06-08] MEDS: NS 1,000 ML IV 1,000 ML IV SCH ×2 (15:50→15:55)
[2022-06-09] MEDS: NS 1,000 ML IV 1,000 ML IV SCH ×4 (00:30→11:51)
[2022-06-09] MEDS: ROBITUSSIN DM PO SCH ×5 (05:09→20:21)
[2022-06-09 06:21] LABS: BASOPHILS % (AUTO) 0.4 % (0.2-1.0); EOSINOPHILS # (AUTO) 0.4 x10^3/uL (0.0-0.2); EOSINOPHILS % (AUTO) 8.6 % (0.9-2.9); HEMATOCRIT 31.9 % (42.0-54.0); LYMPHOCYTES # (AUTO) 1.1 X10^3/uL (1.3-2.9); LYMPHOCYTES % (AUTO) 24.3 % (21.0-51.0); MEAN CORPUSCULAR HEMOGLOBIN 30.3 pg (27.0-34.0); MEAN CORPUSCULAR HGB CONC 34.5 g/dL (33.0-35.0); MEAN CORPUSCULAR VOLUME 87.7 fL (80.0-100.0); MEAN PLATELET VOLUME 8.4 fL (7.4-11.0); MONOCYTES # (AUTO) 0.5 x10^3/uL (0.3-0.8); MONOCYTES % (AUTO) 10.5 % (0.0-13.0); NEUTROPHILS # (AUTO) 2.5 x10^3/uL (2.2-4.8); NEUTROPHILS % (AUTO) 56.2 % (42.0-75.0); RED BLOOD COUNT 3.64 X10^6/uL (4.7-6.0); RED CELL DISTRIBUTION WIDTH 15.3 % (11.6-16.5); WHITE BLOOD COUNT 4.4 X10^3/uL (3.6-10.0)
[2022-06-09 06:39] LABS: ALBUMIN 2.7 g/dL (3.4-5.0); CALCIUM 8.4 mg/dL (8.5-10.1); CARBON DIOXIDE 21.4 mmol/L (21-32); COR CA(FOR HYPOALB) 9.4 mg/dL (8.5-10.1); CREATININE 1.59 mg/dL (0.70-1.30); TOTAL PROTEIN 8.2 g/dL (6.4-8.2)
[2022-06-09] MEDS: ROCEPHIN VIAL 1 GRAM 1 G in NS 100 ML IV 100 ML IV SCH (10:00)
[2022-06-09] MEDS: SINEMET (PLAIN) 25/100 MG PO SCH (10:17)
[2022-06-09] MEDS: LIPITOR TAB 20 MG PO SCH (10:18)
[2022-06-09] MEDS: PROTONIX TAB 40 MG PO SCH ×2 (10:19→20:20)
[2022-06-09] MEDS: COREG TAB 3.125 MG PO SCH ×2 (10:19→20:21)
[2022-06-09] MEDS: SYNTHROID 25 mcg TAB PO SCH (10:19)
[2022-06-09] MEDS: PERIACTIN TAB 4 MG PO SCH ×2 (17:48→20:21)
--- NOTE | 2022-06-09 17:48 | PCM.PROG ---
Progress Note - Progress Note for Day of Date of Exam: 06/09/22 - Subjective Subjective: The patient is currently being treated for pneumonia. He is receiving pain control for right rib fractures following a fall over the weekend. He also has a urinary tract infection. He is currently on Rocephin, receiving Duonebs, and maintenance medications for heart disease have been resum ed. The patient continues to complain of pain, worse with inspiration this morning. He reports that he is having a difficult time with urine output. He is on very gentle IV hydration. Blood cultures were obtained on admission also and they are showing no growth at this time. His chest x-ray this morning shows improvement in atelectasis or pneumonia. No signs of congestive heart failure. Patient reports that he is still coughing, but has been able to cough up much mucus. He had recently suffered a CVA and has left upper extremity weakness, marked, 1 out of 5 at least. He has left lower extremity weakness. We encouraged him to cooperate with Physical Therapy. Family has verbalized that with his falls and since his stroke, they are not able to take care of him at home at this time and requested assisted placement. This was discussed with Case Management as well. - Past Medical Family Social History Past Med/Fam/Surg Hx: No changes since H&P Allergies: Allergies No Known Drug Allergies Allergy (Verified 10/12/21 16:03) - Review of Systems ROS: No change since H&P - Vital Signs and I&O's Vital Signs: Temperature 97.9 F Pulse Rate [Left Radial] 64 Respiratory Rate 18 Blood Pressure [Left Arm] 129/66 Blood Pressure [Right Arm] 127/60 Blood Pressure 130/68 O2 Sat by Pulse Oximetry 97 Intake and Output: Intake & Output 06/07/22 06/08/22 06/09/22 06/10/22 11:59 11:59 11:59 11:59 Intake Total 1013 / 1013 2211 / 2211 1307 / 1307 520 / 520 Output Total 300 / 300 200 / 200 Balance 1012 / 1012 2211 / 2211 1007 / 1007 320 / 320 - Physical Exam Oriented: Normal Eyes: Normal Ear: Normal Nose: Normal Throat: Normal Respiratory: Diminished Cardiovascular: Other (PACER PRESENT) : Normal Auscultation: Bowel Sounds: Normal Tenderness: Normal Skin: Decreased Turgur, Bruising (RIGHT LATERAL RIBS) Musculoskeletal: Right (RIBS), Back:Thoracic, Back:Lumbar, Motor Deficit (LUE), Sensory Deficit Psychiatric: Anxiety Speech Pattern: Clear, Appropriate - Laboratory and Diagnostics Result Diagrams: 06/09/22 05:17 06/09/22 05:17 Labs: 06/06/22 12:33 Blood Blood Culture - Preliminary 06/06/22 12:50 Blood Blood Culture - Preliminary Laboratory WBC 4.4 X10^3/uL (3.6-10.0) 06/09/22 05:17 RBC 3.64 X10^6/uL (4.7-6.0) L 06/09/22 05:17 Hgb 11.0 g/dL (13.5-18.0) L 06/09/22 05:17 Hct 31.9 % (42.0-54.0) L 06/09/22 05:17 MCV 87.7 fL (80.0-100.0) 06/09/22 05:17 MCH 30.3 pg (27.0-34.0) 06/09/22 05:17 MCHC 34.5 g/dL (33.0-35.0) 06/09/22 05:17 RDW 15.3 % (11.6-16.5) 06/09/22 05:17 Plt Count 166 X10^3/uL (150.0-450.0) 06/09/22 05:17 Plt Count Comment Adequate (ADEQUATE) 06/08/22 04:45 MPV 8.4 fL (7.4-11.0) 06/09/22 05:17 Neut % (Auto) 56.2 % (42.0-75.0) 06/09/22 05:17 Lymph % (Auto) 24.3 % (21.0-51.0) 06/09/22 05:17 [place] % (Auto) 10.5 % (0.0-13.0) 06/09/22 05:17 Eos % (Auto) 8.6 % (0.9-2.9) H 06/09/22 05:17 Baso % (Auto) 0.4 % (0.2-1.0) 06/09/22 05:17 Neut # (Auto) 2.5 x10^3/uL (2.2-4.8) 06/09/22 05:17 Lymph # (Auto) 1.1 X10^3/uL (1.3-2.9) L 06/09/22 05:17 [place] # (Auto) 0.5 x10^3/uL (0.3-0.8) 06/09/22 05:17 Eos # (Auto) 0.4 x10^3/uL (0.0-0.2) H 06/09/22 05:17 Baso # (Auto) 0.0 X10^3/uL (0.0-0.1) 06/09/22 05:17 Absolute Nucleated RBC 0.1 /100WBC 06/09/22 05:17 Total Counted 100 06/08/22 04:45 Neutrophils % (Manual) 63 % (39-76) 06/08/22 04:45 Band Neutrophils % 2 % (0-10) 06/08/22 04:45 Lymphocytes % (Manual) 21 % (13-43) 06/08/22 04:45 Monocytes % (Manual) 6 % (4-9) 06/08/22 04:45 Eosinophils % (Manual) 6 % (0-6) 06/08/22 04:45 Metamyelocytes % 2 06/08/22 04:45 Atypical Lymphocytes Rare 06/08/22 04:45 Plt Morphology Comment Normal (NORMAL) 06/08/22 04:45 RBC Morphology Normal (NORMAL) 06/08/22 04:45 Sodium 138 mmol/L (136-145) 06/09/22 05:17 Corrected Sodium 139 mmol/L (136-145) 06/09/22 05:17 Potassium 4.3 mmol/L (3.5-5.1) 06/09/22 05:17 Chloride 106 mmol/L (98-107) 06/09/22 05:17 Carbon Dioxide 21.4 mmol/L (21-32) 06/09/22 05:17 BUN 21 mg/dL (7-18) H 06/09/22 05:17 Creatinine 1.59 mg/dL (0.70-1.30) H 06/09/22 05:17 Est GFR (MDRD) Af Amer 56 (>60) L 06/09/22 05:17 Est GFR (MDRD) Non-Af 46 (>60) L 06/09/22 05:17 Glucose 122 mg/dL (65-99) H 06/09/22 05:17 Calcium 8.4 mg/dL (8.5-10.1) L 06/09/22 05:17 Corrected Calcium 9.4 mg/dL (8.5-10.1) 06/09/22 05:17 Magnesium 2.3 mg/dL (1.7-2.9) 06/06/22 12:33 Total Bilirubin 0.10 mg/dL (0.2-1.0) L 06/09/22 05:17 AST 40 Units/L (15-37) H 06/09/22 05:17 ALT 31 Units/L (12-78) 06/09/22 05:17 Alkaline Phosphatase 88 Units/L (46-116) 06/09/22 05:17 Total Protein 8.2 g/dL (6.4-8.2) 06/09/22 05:17 Albumin 2.7 g/dL (3.4-5.0) L 06/09/22 05:17 Globulin 5.5 g/dL (2.5-4.5) H 06/09/22 05:17 Albumin/Globulin Ratio 0.5 Ratio (1.1-2.1) L 06/09/22 05:17 Specimen Type Clean catch urine 06/06/22 16:58 Urine Color Yellow (YELLOW) 06/06/22 16:58 Urine Appearance Clear (CLEAR) 06/06/22 16:58 Urine pH 6.0 (5.0 - 8.0) 06/06/22 16:58 Ur Specific [place] 1.015 (1.000-1.030) 06/06/22 16:58 Urine Protein Negative (NEGATIVE) 06/06/22 16:58 Urine Glucose (UA) Negative (NEGATIVE) 06/06/22 16:58 Urine Ketones Negative (NEGATIVE) 06/06/22 16:58 Urine Blood Negative (NEGATIVE) 06/06/22 16:58 Urine Nitrite Negative (NEGATIVE) 06/06/22 16:58 Urine Bilirubin Negative (NEGATIVE) 06/06/22 16:58 Urine Urobilinogen Normal (NORMAL) 06/06/22 16:58 Ur Leukocyte Esterase Negative (NEGATIVE) 06/06/22 16:58 SARS-CoV-2 (PCR) Negative (NEGATIVE) 06/06/22 16:58 - Plan (1) Pneumonia Status: Acute Plan: BLOOD AND URINE CULTURES ON ADMISSION, GENTL IV HYDRATION. I&OS, RESP SWAB ON ADMISSION NEGATIVE FOR COVID. AM CXR, RESP THERAPY. IV ATBX THERAPY, VERIFY HOME MEDICATION AND RESUME. BP CONTROL, PT/OT, PAIN CONTROL (2) Right rib fracture Status: Acute (3) UTI (urinary tract infection) Status: Acute (4) Generalized weakness Status: Acute (5) CHF (congestive heart failure), NYHA class II Status: Acute Qualifiers: Congestive heart failure type: unspecified Qualified Code(s): I50.9 - Heart failure, unspecified (6) CVA, old, disturbances of vision Status: Acute (7) Hypertension Status: Chronic Qualifiers: Hypertension type: essential hypertension Qualified Code(s): I10 - Essential (primary) hypertension
[2022-06-10] MEDS: COLACE CAP 100 MG PO SCH ×2 (01:06→21:35)
[2022-06-10] MEDS: NS 1,000 ML IV 1,000 ML IV SCH ×3 (01:07→14:41)
[2022-06-10] MEDS: MILK OF MAGNESIA PO SCH ×2 (01:07→21:35)
[2022-06-10 06:35] LABS: BASOPHILS % (AUTO) 0.6 % (0.2-1.0); EOSINOPHILS # (AUTO) 0.4 x10^3/uL (0.0-0.2); EOSINOPHILS % (AUTO) 7.8 % (0.9-2.9); HEMATOCRIT 32.3 % (42.0-54.0); LYMPHOCYTES # (AUTO) 1.1 X10^3/uL (1.3-2.9); LYMPHOCYTES % (AUTO) 24.2 % (21.0-51.0); MEAN CORPUSCULAR HEMOGLOBIN 29.9 pg (27.0-34.0); MEAN CORPUSCULAR HGB CONC 34.1 g/dL (33.0-35.0); MEAN CORPUSCULAR VOLUME 87.7 fL (80.0-100.0); MEAN PLATELET VOLUME 8.5 fL (7.4-11.0); MONOCYTES # (AUTO) 0.5 x10^3/uL (0.3-0.8); MONOCYTES % (AUTO) 10.1 % (0.0-13.0); NEUTROPHILS # (AUTO) 2.6 x10^3/uL (2.2-4.8); NEUTROPHILS % (AUTO) 57.3 % (42.0-75.0); RED BLOOD COUNT 3.69 X10^6/uL (4.7-6.0); RED CELL DISTRIBUTION WIDTH 14.8 % (11.6-16.5); WHITE BLOOD COUNT 4.6 X10^3/uL (3.6-10.0)
[2022-06-10 06:55] LABS: ALANINE AMINOTRANSFERASE 42 Units/L (12-78); ALBUMIN 2.8 g/dL (3.4-5.0); ALKALINE PHOSPHATASE 121 Units/L (46-116); ASPARTATE AMINO TRANSFERASE 50 Units/L (15-37); BLOOD UREA NITROGEN 15 mg/dL (7-18); CALCIUM 8.3 mg/dL (8.5-10.1); CARBON DIOXIDE 21.2 mmol/L (21-32); CHLORIDE 108 mmol/L (98-107); COR CA(FOR HYPOALB) 9.3 mg/dL (8.5-10.1); COR NA(FOR HYPERGLY) 139 mmol/L (136-145); CREATININE 1.47 mg/dL (0.70-1.30); SODIUM 139 mmol/L (136-145); TOTAL PROTEIN 8.2 g/dL (6.4-8.2); eGFR NON BLACK RACES 51 (>60)
[2022-06-10] MEDS: COREG TAB 3.125 MG PO SCH ×2 (10:00→20:49)
[2022-06-10] MEDS: ROCEPHIN VIAL 1 GRAM 1 G in NS 100 ML IV 100 ML IV SCH (10:00)
[2022-06-10] MEDS: PERIACTIN TAB 4 MG PO SCH ×2 (10:00→20:49)
[2022-06-10] MEDS: SINEMET (PLAIN) 25/100 MG PO SCH (10:00)
[2022-06-10] MEDS: LIPITOR TAB 20 MG PO SCH (10:00)
[2022-06-10] MEDS: PROTONIX TAB 40 MG PO SCH ×2 (10:00→20:49)
[2022-06-10] MEDS: SYNTHROID 25 mcg TAB PO SCH (10:00)
[2022-06-10] MEDS: ROBITUSSIN DM PO SCH ×4 (10:11→20:49)
[2022-06-11] MEDS: NS 1,000 ML IV 1,000 ML IV SCH ×4 (02:38→21:33)
[2022-06-11 05:05] LABS: BASOPHILS # (AUTO) 0.1 X10^3/uL (0.0-0.1); BASOPHILS % (AUTO) 1.8 % (0.2-1.0); EOSINOPHILS # (AUTO) 0.4 x10^3/uL (0.0-0.2); EOSINOPHILS % (AUTO) 9.6 % (0.9-2.9); HEMATOCRIT 33.2 % (42.0-54.0); HEMOGLOBIN 11.3 g/dL (13.5-18.0); LYMPHOCYTES # (AUTO) 1.3 X10^3/uL (1.3-2.9); LYMPHOCYTES % (AUTO) 30.4 % (21.0-51.0); MEAN CORPUSCULAR HEMOGLOBIN 29.9 pg (27.0-34.0); MEAN CORPUSCULAR VOLUME 87.8 fL (80.0-100.0); MEAN PLATELET VOLUME 8.3 fL (7.4-11.0); MONOCYTES # (AUTO) 0.4 x10^3/uL (0.3-0.8); MONOCYTES % (AUTO) 9.5 % (0.0-13.0); NEUTROPHILS % (AUTO) 48.7 % (42.0-75.0); RED BLOOD COUNT 3.78 X10^6/uL (4.7-6.0); WHITE BLOOD COUNT 4.1 X10^3/uL (3.6-10.0)
[2022-06-11 05:25] LABS: ALBUMIN 2.7 g/dL (3.4-5.0); CALCIUM 8.6 mg/dL (8.5-10.1); CARBON DIOXIDE 23.3 mmol/L (21-32); COR CA(FOR HYPOALB) 9.6 mg/dL (8.5-10.1); CREATININE 1.51 mg/dL (0.70-1.30)
--- NOTE | 2022-06-11 08:21 | RAD ---
HISTORYPNEUMONIASTUDYCHEST, 1 [id number]/03/2022.FINDINGSThe trachea is midline. There is a dual lead cardiac pacing device on the left. The cardiac silhouette is within normal limits in size. The lungs are clear without focal infiltrate or effusion. The bony thorax is unremarkable.IMPRESSIONNo acute cardiopulmonary findings .Electronically signed by: RUTH VANN (Jun 11, 2022 08:19:59)
[2022-06-11] MEDS: PERIACTIN TAB 4 MG PO SCH ×2 (08:56→21:31)
[2022-06-11] MEDS: ROBITUSSIN DM PO SCH ×4 (08:56→21:30)
[2022-06-11] MEDS: LIPITOR TAB 20 MG PO SCH (08:56)
[2022-06-11] MEDS: COREG TAB 3.125 MG PO SCH ×2 (08:57→21:32)
[2022-06-11] MEDS: PROTONIX TAB 40 MG PO SCH ×2 (08:57→21:31)
[2022-06-11] MEDS: ROCEPHIN VIAL 1 GRAM 1 G in NS 100 ML IV 100 ML IV SCH (08:57)
[2022-06-11] MEDS: SINEMET (PLAIN) 25/100 MG PO SCH (08:57)
[2022-06-11] MEDS: SYNTHROID 25 mcg TAB PO SCH (08:57)
--- NOTE | 2022-06-11 12:27 | PCM.PROG ---
Progress Note Progress Note for Day of Date of Exam: 06/11/22 Subjective Subjective: Patient seen at bedside, no events overnight. Patient is currently being treated for rib fractures and pneumonia. He also has a UTI, currently on Rocephin. He reports feeling slightly better. He recently had a CVA in May and has left upper ext weakness. Patient has been getting PT here. Labs/imaging reviewed Plan: continue current treatment, PT/OT as tolerated. Continue gentle hydration. Continue Rocephin. Follow cultures. Discussed with patient to sit up to prevent aspiration. Family would like patient to go to rehab, CM working on placement. Monitor AM labs/imaging. Past Medical Family Social History Past Med/Fam/Surg Hx: No changes since H&P Allergies: Allergies No Known Drug Allergies Allergy (Verified 10/12/21 16:03) Review of Systems ROS: No change since H&P Vital Signs and I&O's Vital Signs: Temperature 98.3 F Pulse Rate [Left Radial] 67 Pulse Rate 67 Respiratory Rate 18 Blood Pressure [Left Arm] 196/80 Blood Pressure [Right Arm] 127/60 Blood Pressure 130/68 O2 Sat by Pulse Oximetry 99 Intake and Output: Intake & Output 06/08/22 06/09/22 06/10/22 06/11/22 23:59 23:59 23:59 23:59 Intake Total 2009 1881 / 1881 2310 / 2310 750 / 750 Output Total 300 / 300 200 / 200 325 / 325 Balance 1710 / 1710 1681 / 1681 1984 / 1984 750 / 750 Physical Exam Oriented: Normal Eyes: Normal Ear: Normal Nose: Normal Throat: Normal Respiratory: Diminished Cardiovascular: Other (PACER PRESENT) Auscultation: Bowel Sounds: Normal Tenderness: Normal Skin: Decreased Turgur and Bruising (RIGHT LATERAL RIBS) Musculoskeletal: Right (RIBS), Back:Thoracic, Back:Lumbar, Motor Deficit (LUE) and Sensory Deficit Psychiatric: Normal and Anxiety Mood Description: Appropriate Affect: Normal Speech Pattern: Clear and Appropriate Laboratory and Diagnostics Result Diagrams: 06/11/22 04:38 06/11/22 04:38 Labs: 06/06/22 12:33 Blood Blood Culture - Preliminary 06/06/22 12:50 Blood Blood Culture - Preliminary Laboratory WBC 4.1 X10^3/uL (3.6-10.0) 06/11/22 04:38 RBC 3.78 X10^6/uL (4.7-6.0) L 06/11/22 04:38 Hgb 11.3 g/dL (13.5-18.0) L 06/11/22 04:38 Hct 33.2 % (42.0-54.0) L 06/11/22 04:38 MCV 87.8 fL (80.0-100.0) 06/11/22 04:38 MCH 29.9 pg (27.0-34.0) 06/11/22 04:38 MCHC 34.0 g/dL (33.0-35.0) 06/11/22 04:38 RDW 15.0 % (11.6-16.5) 06/11/22 04:38 Plt Count 188 X10^3/uL (150.0-450.0) 06/11/22 04:38 Plt Count Comment Adequate (ADEQUATE) 06/08/22 04:45 MPV 8.3 fL (7.4-11.0) 06/11/22 04:38 Neut % (Auto) 48.7 % (42.0-75.0) 06/11/22 04:38 Lymph % (Auto) 30.4 % (21.0-51.0) 06/11/22 04:38 [place] % (Auto) 9.5 % (0.0-13.0) 06/11/22 04:38 Eos % (Auto) 9.6 % (0.9-2.9) H 06/11/22 04:38 Baso % (Auto) 1.8 % (0.2-1.0) H 06/11/22 04:38 Neut # (Auto) 2.0 x10^3/uL (2.2-4.8) L 06/11/22 04:38 Lymph # (Auto) 1.3 X10^3/uL (1.3-2.9) 06/11/22 04:38 [place] # (Auto) 0.4 x10^3/uL (0.3-0.8) 06/11/22 04:38 Eos # (Auto) 0.4 x10^3/uL (0.0-0.2) H 06/11/22 04:38 Baso # (Auto) 0.1 X10^3/uL (0.0-0.1) 06/11/22 04:38 Absolute Nucleated RBC 0.1 /100WBC 06/11/22 04:38 Total Counted 100 06/08/22 04:45 Neutrophils % (Manual) 63 % (39-76) 06/08/22 04:45 Band Neutrophils % 2 % (0-10) 06/08/22 04:45 Lymphocytes % (Manual) 21 % (13-43) 06/08/22 04:45 Monocytes % (Manual) 6 % (4-9) 06/08/22 04:45 Eosinophils % (Manual) 6 % (0-6) 06/08/22 04:45 Metamyelocytes % 2 06/08/22 04:45 Atypical Lymphocytes Rare 06/08/22 04:45 Plt Morphology Comment Normal (NORMAL) 06/08/22 04:45 RBC Morphology Normal (NORMAL) 06/08/22 04:45 Sodium 140 mmol/L (136-145) 06/11/22 04:38 Corrected Sodium 140 mmol/L (136-145) 06/11/22 04:38 Potassium 4.3 mmol/L (3.5-5.1) 06/11/22 04:38 Chloride 109 mmol/L (98-107) H 06/11/22 04:38 Carbon Dioxide 23.3 mmol/L (21-32) 06/11/22 04:38 BUN 11 mg/dL (7-18) 06/11/22 04:38 Creatinine 1.51 mg/dL (0.70-1.30) H 06/11/22 04:38 Est GFR (MDRD) Af Amer 60 (>60) 06/11/22 04:38 Est GFR (MDRD) Non-Af 49 (>60) L 06/11/22 04:38 Glucose 117 mg/dL (65-99) H 06/11/22 04:38 Calcium 8.6 mg/dL (8.5-10.1) 06/11/22 04:38 Corrected Calcium 9.6 mg/dL (8.5-10.1) 06/11/22 04:38 Magnesium 2.3 mg/dL (1.7-2.9) 06/06/22 12:33 Total Bilirubin 0.10 mg/dL (0.2-1.0) L 06/11/22 04:38 AST 50 Units/L (15-37) H 06/11/22 04:38 ALT 44 Units/L (12-78) 06/11/22 04:38 Alkaline Phosphatase 104 Units/L (46-116) 06/11/22 04:38 Total Protein 8.0 g/dL (6.4-8.2) 06/11/22 04:38 Albumin 2.7 g/dL (3.4-5.0) L 06/11/22 04:38 Globulin 5.3 g/dL (2.5-4.5) H 06/11/22 04:38 Albumin/Globulin Ratio 0.5 Ratio (1.1-2.1) L 06/11/22 04:38 Specimen Type Clean catch urine 06/06/22 16:58 Urine Color Yellow (YELLOW) 06/06/22 16:58 Urine Appearance Clear (CLEAR) 06/06/22 16:58 Urine pH 6.0 (5.0 - 8.0) 06/06/22 16:58 Ur Specific [place] 1.015 (1.000-1.030) 06/06/22 16:58 Urine Protein Negative (NEGATIVE) 06/06/22 16:58 Urine Glucose (UA) Negative (NEGATIVE) 06/06/22 16:58 Urine Ketones Negative (NEGATIVE) 06/06/22 16:58 Urine Blood Negative (NEGATIVE) 06/06/22 16:58 Urine Nitrite Negative (NEGATIVE) 06/06/22 16:58 Urine Bilirubin Negative (NEGATIVE) 06/06/22 16:58 Urine Urobilinogen Normal (NORMAL) 06/06/22 16:58 Ur Leukocyte Esterase Negative (NEGATIVE) 06/06/22 16:58 SARS-CoV-2 (PCR) Negative (NEGATIVE) 06/06/22 16:58 Plan (1) Pneumonia: Status: Acute (2) Right rib fracture: Status: Acute (3) UTI (urinary tract infection): Status: Acute (4) Generalized weakness: Status: Acute (5) CHF (congestive heart failure), NYHA class II: Status: Acute Qualifiers: Congestive heart failure type: unspecified Qualified Code(s): I50.9 - Heart failure, unspecified (6) Hypertension: Status: Chronic Qualifiers: Hypertension type: essential hypertension Qualified Code(s): I10 - Essential (primary) hypertension (7) Recent cerebrovascular accident (CVA): Status: Acute (8) Left arm weakness: Status: Acute (9) CKD (chronic kidney disease): Status: Acute
[2022-06-11] MEDS: COLACE CAP 100 MG PO SCH (21:32)
[2022-06-11] MEDS: MILK OF MAGNESIA PO SCH (21:33)
[2022-06-12 05:21] LABS: EOSINOPHILS # (AUTO) 0.2 x10^3/uL (0.0-0.2); EOSINOPHILS % (AUTO) 4.4 % (0.9-2.9); HEMATOCRIT 30.9 % (42.0-54.0); HEMOGLOBIN 10.6 g/dL (13.5-18.0); LYMPHOCYTES # (AUTO) 1.4 X10^3/uL (1.3-2.9); LYMPHOCYTES % (AUTO) 31.7 % (21.0-51.0); MEAN CORPUSCULAR HGB CONC 34.3 g/dL (33.0-35.0); MEAN CORPUSCULAR VOLUME 87.6 fL (80.0-100.0); MEAN PLATELET VOLUME 8.4 fL (7.4-11.0); MONOCYTES # (AUTO) 0.6 x10^3/uL (0.3-0.8); MONOCYTES % (AUTO) 13.6 % (0.0-13.0); NEUTROPHILS # (AUTO) 2.2 x10^3/uL (2.2-4.8); NEUTROPHILS % (AUTO) 49.3 % (42.0-75.0); RED BLOOD COUNT 3.53 X10^6/uL (4.7-6.0); WHITE BLOOD COUNT 4.4 X10^3/uL (3.6-10.0)
[2022-06-12 05:36] LABS: ALANINE AMINOTRANSFERASE 59 Units/L (12-78); ALBUMIN 2.6 g/dL (3.4-5.0); ALKALINE PHOSPHATASE 95 Units/L (46-116); ASPARTATE AMINO TRANSFERASE 72 Units/L (15-37); BLOOD UREA NITROGEN 13 mg/dL (7-18); CALCIUM 8.4 mg/dL (8.5-10.1); CARBON DIOXIDE 25.9 mmol/L (21-32); CHLORIDE 109 mmol/L (98-107); COR CA(FOR HYPOALB) 9.5 mg/dL (8.5-10.1); CREATININE 1.54 mg/dL (0.70-1.30); SODIUM 140 mmol/L (136-145); TOTAL PROTEIN 7.8 g/dL (6.4-8.2); eGFR NON BLACK RACES 48 (>60)
[2022-06-12] MEDS: NS 1,000 ML IV 1,000 ML IV SCH ×3 (08:13→21:39)
[2022-06-12] MEDS: ROBITUSSIN DM PO SCH ×4 (08:15→21:03)
[2022-06-12] MEDS: PROTONIX TAB 40 MG PO SCH ×2 (08:15→21:03)
[2022-06-12] MEDS: PERIACTIN TAB 4 MG PO SCH ×2 (08:15→21:03)
[2022-06-12] MEDS: SINEMET (PLAIN) 25/100 MG PO SCH (08:15)
[2022-06-12] MEDS: LIPITOR TAB 20 MG PO SCH (08:15)
[2022-06-12] MEDS: COREG TAB 3.125 MG PO SCH ×2 (08:15→21:03)
[2022-06-12] MEDS: SYNTHROID 25 mcg TAB PO SCH (08:15)
[2022-06-12] MEDS: ROCEPHIN VIAL 1 GRAM 1 G in NS 100 ML IV 100 ML IV SCH (08:15)
--- NOTE | 2022-06-12 12:21 | PCM.PROG ---
Progress Note Progress Note for Day of Date of Exam: 06/12/22 Subjective Subjective: Patient seen at bedside, no events overnight. Patient is currently being treated for rib fractures and pneumonia. He also has a UTI, currently on Rocephin. He reports doing well. He recently had a CVA in May and has left upper ext weakness. Patient has been getting PT here. Labs/imaging reviewed Plan: continue current treatment, PT/OT as tolerated. Continue gentle hydration. Continue Rocephin. Follow cultures. Discussed with patient to sit up to prevent aspiration. Family would like patient to go to rehab, CM working on placement. Monitor AM labs/imaging. Past Medical Family Social History Past Med/Fam/Surg Hx: No changes since H&P Allergies: Allergies No Known Drug Allergies Allergy (Verified 10/12/21 16:03) Review of Systems ROS: No change since H&P Vital Signs and I&O's Vital Signs: Temperature 98 F Pulse Rate [Left Radial] 62 Pulse Rate 66 Respiratory Rate 20 Blood Pressure [Left Arm] 162/69 Blood Pressure [Right Arm] 127/60 Blood Pressure 130/68 O2 Sat by Pulse Oximetry 99 Intake and Output: Intake & Output 06/09/22 06/10/22 06/11/22 06/12/22 23:59 23:59 23:59 23:59 Intake Total 1881 / 1881 2310 / 2310 1989 894 / 894 Output Total 200 / 200 325 / 325 Balance 1681 / 1681 1984 894 / 894 Physical Exam Oriented: Normal Eyes: Normal Ear: Normal Nose: Normal Throat: Normal Respiratory: Diminished Cardiovascular: Other (PACER PRESENT) : Normal Auscultation: Bowel Sounds: Normal Tenderness: Normal Skin: Decreased Turgur and Bruising (RIGHT LATERAL RIBS) Musculoskeletal: Right (RIBS), Back:Thoracic, Back:Lumbar, Motor Deficit (LUE) and Sensory Deficit Psychiatric: Normal and Anxiety Mood Description: Appropriate Affect: Normal Speech Pattern: Clear and Appropriate Laboratory and Diagnostics Result Diagrams: 06/12/22 04:10 06/12/22 04:10 Labs: 06/06/22 12:50 Blood Blood Culture - Final 06/06/22 12:33 Blood Blood Culture - Final Laboratory WBC 4.4 X10^3/uL (3.6-10.0) 06/12/22 04:10 RBC 3.53 X10^6/uL (4.7-6.0) L 06/12/22 04:10 Hgb 10.6 g/dL (13.5-18.0) L 06/12/22 04:10 Hct 30.9 % (42.0-54.0) L 06/12/22 04:10 MCV 87.6 fL (80.0-100.0) 06/12/22 04:10 MCH 30.0 pg (27.0-34.0) 06/12/22 04:10 MCHC 34.3 g/dL (33.0-35.0) 06/12/22 04:10 RDW 15.0 % (11.6-16.5) 06/12/22 04:10 Plt Count 186 X10^3/uL (150.0-450.0) 06/12/22 04:10 Plt Count Comment Adequate (ADEQUATE) 06/08/22 04:45 MPV 8.4 fL (7.4-11.0) 06/12/22 04:10 Neut % (Auto) 49.3 % (42.0-75.0) 06/12/22 04:10 Lymph % (Auto) 31.7 % (21.0-51.0) 06/12/22 04:10 [place] % (Auto) 13.6 % (0.0-13.0) H 06/12/22 04:10 Eos % (Auto) 4.4 % (0.9-2.9) H 06/12/22 04:10 Baso % (Auto) 1.0 % (0.2-1.0) 06/12/22 04:10 Neut # (Auto) 2.2 x10^3/uL (2.2-4.8) 06/12/22 04:10 Lymph # (Auto) 1.4 X10^3/uL (1.3-2.9) 06/12/22 04:10 [place] # (Auto) 0.6 x10^3/uL (0.3-0.8) 06/12/22 04:10 Eos # (Auto) 0.2 x10^3/uL (0.0-0.2) 06/12/22 04:10 Baso # (Auto) 0.0 X10^3/uL (0.0-0.1) 06/12/22 04:10 Absolute Nucleated RBC 0.1 /100WBC 06/12/22 04:10 Total Counted 100 06/08/22 04:45 Neutrophils % (Manual) 63 % (39-76) 06/08/22 04:45 Band Neutrophils % 2 % (0-10) 06/08/22 04:45 Lymphocytes % (Manual) 21 % (13-43) 06/08/22 04:45 Monocytes % (Manual) 6 % (4-9) 06/08/22 04:45 Eosinophils % (Manual) 6 % (0-6) 06/08/22 04:45 Metamyelocytes % 2 06/08/22 04:45 Atypical Lymphocytes Rare 06/08/22 04:45 Plt Morphology Comment Normal (NORMAL) 06/08/22 04:45 RBC Morphology Normal (NORMAL) 06/08/22 04:45 Sodium 140 mmol/L (136-145) 06/12/22 04:10 Corrected Sodium TNP 06/12/22 04:10 Potassium 4.0 mmol/L (3.5-5.1) 06/12/22 04:10 Chloride 109 mmol/L (98-107) H 06/12/22 04:10 Carbon Dioxide 25.9 mmol/L (21-32) 06/12/22 04:10 BUN 13 mg/dL (7-18) 06/12/22 04:10 Creatinine 1.54 mg/dL (0.70-1.30) H 06/12/22 04:10 Est GFR (MDRD) Af Amer 58 (>60) L 06/12/22 04:10 Est GFR (MDRD) Non-Af 48 (>60) L 06/12/22 04:10 Glucose 104 mg/dL (65-99) H 06/12/22 04:10 Calcium 8.4 mg/dL (8.5-10.1) L 06/12/22 04:10 Corrected Calcium 9.5 mg/dL (8.5-10.1) 06/12/22 04:10 Magnesium 2.3 mg/dL (1.7-2.9) 06/06/22 12:33 Total Bilirubin 0.20 mg/dL (0.2-1.0) 06/12/22 04:10 AST 72 Units/L (15-37) H 06/12/22 04:10 ALT 59 Units/L (12-78) 06/12/22 04:10 Alkaline Phosphatase 95 Units/L (46-116) 06/12/22 04:10 Total Protein 7.8 g/dL (6.4-8.2) 06/12/22 04:10 Albumin 2.6 g/dL (3.4-5.0) L 06/12/22 04:10 Globulin 5.2 g/dL (2.5-4.5) H 06/12/22 04:10 Albumin/Globulin Ratio 0.5 Ratio (1.1-2.1) L 06/12/22 04:10 Specimen Type Clean catch urine 06/06/22 16:58 Urine Color Yellow (YELLOW) 06/06/22 16:58 Urine Appearance Clear (CLEAR) 06/06/22 16:58 Urine pH 6.0 (5.0 - 8.0) 06/06/22 16:58 Ur Specific [place] 1.015 (1.000-1.030) 06/06/22 16:58 Urine Protein Negative (NEGATIVE) 06/06/22 16:58 Urine Glucose (UA) Negative (NEGATIVE) 06/06/22 16:58 Urine Ketones Negative (NEGATIVE) 06/06/22 16:58 Urine Blood Negative (NEGATIVE) 06/06/22 16:58 Urine Nitrite Negative (NEGATIVE) 06/06/22 16:58 Urine Bilirubin Negative (NEGATIVE) 06/06/22 16:58 Urine Urobilinogen Normal (NORMAL) 06/06/22 16:58 Ur Leukocyte Esterase Negative (NEGATIVE) 06/06/22 16:58 SARS-CoV-2 (PCR) Negative (NEGATIVE) 06/06/22 16:58 Plan (1) Pneumonia: Status: Acute (2) Right rib fracture: Status: Acute (3) UTI (urinary tract infection): Status: Acute (4) Generalized weakness: Status: Acute (5) CHF (congestive heart failure), NYHA class II: Status: Acute Qualifiers: Congestive heart failure type: unspecified Qualified Code(s): I50.9 - Heart failure, unspecified (6) Hypertension: Status: Chronic Qualifiers: Hypertension type: essential hypertension Qualified Code(s): I10 - Essential (primary) hypertension (7) Recent cerebrovascular accident (CVA): Status: Acute (8) Left arm weakness: Status: Acute (9) CKD (chronic kidney disease): Status: Acute
[2022-06-12] MEDS: MILK OF MAGNESIA PO SCH (21:03)
[2022-06-12] MEDS: COLACE CAP 100 MG PO SCH (21:03)
[2022-06-13 05:25] LABS: BASOPHILS # (AUTO) 0.1 X10^3/uL (0.0-0.1); BASOPHILS % (AUTO) 1.1 % (0.2-1.0); EOSINOPHILS # (AUTO) 0.2 x10^3/uL (0.0-0.2); EOSINOPHILS % (AUTO) 3.5 % (0.9-2.9); HEMATOCRIT 31.5 % (42.0-54.0); HEMOGLOBIN 10.8 g/dL (13.5-18.0); LYMPHOCYTES # (AUTO) 1.6 X10^3/uL (1.3-2.9); LYMPHOCYTES % (AUTO) 28.3 % (21.0-51.0); MEAN CORPUSCULAR HGB CONC 34.2 g/dL (33.0-35.0); MEAN CORPUSCULAR VOLUME 87.6 fL (80.0-100.0); MEAN PLATELET VOLUME 8.5 fL (7.4-11.0); MONOCYTES # (AUTO) 0.7 x10^3/uL (0.3-0.8); MONOCYTES % (AUTO) 11.9 % (0.0-13.0); NEUTROPHILS % (AUTO) 55.2 % (42.0-75.0); RED CELL DISTRIBUTION WIDTH 15.5 % (11.6-16.5); WHITE BLOOD COUNT 5.5 X10^3/uL (3.6-10.0)
[2022-06-13 05:38] LABS: BLOOD UREA NITROGEN 12 mg/dL (7-18); CARBON DIOXIDE 24.4 mmol/L (21-32); CHLORIDE 107 mmol/L (98-107); CREATININE 1.43 mg/dL (0.70-1.30); SODIUM 139 mmol/L (136-145); eGFR NON BLACK RACES 52 (>60)
[2022-06-13 05:39] LABS: ALANINE AMINOTRANSFERASE 59 Units/L (12-78); ALBUMIN 2.6 g/dL (3.4-5.0); ALKALINE PHOSPHATASE 98 Units/L (46-116); ASPARTATE AMINO TRANSFERASE 63 Units/L (15-37); CALCIUM 8.3 mg/dL (8.5-10.1); COR CA(FOR HYPOALB) 9.4 mg/dL (8.5-10.1); COR NA(FOR HYPERGLY) 139 mmol/L (136-145); TOTAL PROTEIN 7.7 g/dL (6.4-8.2)
[2022-06-13] MEDS: COREG TAB 3.125 MG PO SCH ×2 (10:48→20:44)
[2022-06-13] MEDS: LIPITOR TAB 20 MG PO SCH (10:48)
[2022-06-13] MEDS: PROTONIX TAB 40 MG PO SCH ×2 (10:49→20:45)
[2022-06-13] MEDS: PERIACTIN TAB 4 MG PO SCH ×2 (10:49→20:44)
[2022-06-13] MEDS: ROBITUSSIN DM PO SCH ×4 (10:49→20:45)
[2022-06-13] MEDS: ROCEPHIN VIAL 1 GRAM 1 G in NS 100 ML IV 100 ML IV SCH (10:50)
[2022-06-13] MEDS: SINEMET (PLAIN) 25/100 MG PO SCH (10:50)
[2022-06-13] MEDS: SYNTHROID 25 mcg TAB PO SCH (10:51)
[2022-06-13] MEDS: NS 1,000 ML IV 1,000 ML IV SCH (13:30)
[2022-06-13] MEDS: COLACE CAP 100 MG PO SCH (20:45)
[2022-06-13] MEDS: MILK OF MAGNESIA PO SCH (20:45)
[2022-06-14] MEDS: NS 1,000 ML IV 1,000 ML IV SCH ×2 (05:38→18:59)
[2022-06-14 06:09] LABS: BASOPHILS % (AUTO) 0.6 % (0.2-1.0); EOSINOPHILS # (AUTO) 0.2 x10^3/uL (0.0-0.2); EOSINOPHILS % (AUTO) 3.3 % (0.9-2.9); HEMATOCRIT 30.2 % (42.0-54.0); HEMOGLOBIN 10.3 g/dL (13.5-18.0); LYMPHOCYTES # (AUTO) 1.5 X10^3/uL (1.3-2.9); MEAN CORPUSCULAR HEMOGLOBIN 30.2 pg (27.0-34.0); MEAN CORPUSCULAR HGB CONC 34.3 g/dL (33.0-35.0); MEAN CORPUSCULAR VOLUME 88.1 fL (80.0-100.0); MEAN PLATELET VOLUME 8.1 fL (7.4-11.0); MONOCYTES # (AUTO) 0.8 x10^3/uL (0.3-0.8); MONOCYTES % (AUTO) 13.3 % (0.0-13.0); NEUTROPHILS # (AUTO) 3.3 x10^3/uL (2.2-4.8); NEUTROPHILS % (AUTO) 56.8 % (42.0-75.0); RED BLOOD COUNT 3.43 X10^6/uL (4.7-6.0); RED CELL DISTRIBUTION WIDTH 15.2 % (11.6-16.5); WHITE BLOOD COUNT 5.9 X10^3/uL (3.6-10.0)
[2022-06-14 06:26] LABS: ALANINE AMINOTRANSFERASE 49 Units/L (12-78); ALBUMIN 2.6 g/dL (3.4-5.0); ALKALINE PHOSPHATASE 104 Units/L (46-116); ASPARTATE AMINO TRANSFERASE 40 Units/L (15-37); BLOOD UREA NITROGEN 11 mg/dL (7-18); CALCIUM 8.4 mg/dL (8.5-10.1); CHLORIDE 108 mmol/L (98-107); COR CA(FOR HYPOALB) 9.5 mg/dL (8.5-10.1); COR NA(FOR HYPERGLY) 140 mmol/L (136-145); CREATININE 1.42 mg/dL (0.70-1.30); SODIUM 139 mmol/L (136-145); TOTAL PROTEIN 7.7 g/dL (6.4-8.2); eGFR NON BLACK RACES 53 (>60)
[2022-06-14 08:32] VITALS: BMI 22.8
[2022-06-14] MEDS: ROBITUSSIN DM PO SCH ×4 (09:39→20:47)
[2022-06-14] MEDS: COREG TAB 3.125 MG PO SCH ×2 (09:40→20:46)
[2022-06-14] MEDS: LIPITOR TAB 20 MG PO SCH (09:40)
[2022-06-14] MEDS: SYNTHROID 25 mcg TAB PO SCH (09:40)
[2022-06-14] MEDS: PERIACTIN TAB 4 MG PO SCH ×2 (09:40→20:47)
[2022-06-14] MEDS: SINEMET (PLAIN) 25/100 MG PO SCH (09:40)
[2022-06-14] MEDS: PROTONIX TAB 40 MG PO SCH ×2 (09:40→20:46)
[2022-06-14] MEDS: ROCEPHIN VIAL 1 GRAM 1 G in NS 100 ML IV 100 ML IV SCH (09:41)
--- NOTE | 2022-06-14 17:42 | PCM.PROG ---
Progress Note - Progress Note for Day of Date of Exam: 06/14/22 - Subjective Subjective: This is a 66-year-old black male who is being treated for pneumonia. The patient also has a recent history of a CVA with severe left sided weakness. His chest x-ray last obtained on Monday showed improvement in pneumonia. He continued with cough and some diffuse central rhonchi. It does seem to be improving today. Family has verbalized that they are having a difficult time caring for him since he had this last stroke and we are currently seeking care home placement. [facility] is evaluating and we will possibly discharge him home to [facility]. His BUN and creatinine were improved. BUN 11 and creatinine was at 1.42, which is close to his baseline. The patients white count is 5.9, hemoglobin 10.3. He has been cooperative with Physical Therapy. The patient has had to take opioid pain control for his rib pain. He states that is also is improving. The patient is at 99% on room air at rest. The patient was at 96 after sitting up in the chair. He has been afebrile. Blood pressure is 142/71. - Past Medical Family Social History Past Med/Fam/Surg Hx: No changes since H&P Allergies: Allergies No Known Drug Allergies Allergy (Verified 10/12/21 16:03) - Review of Systems ROS: No change since H&P - Vital Signs and I&O's Vital Signs: Temperature 97.8 F Pulse Rate [Left Radial] 72 Pulse Rate 66 Respiratory Rate 18 Blood Pressure [Left Arm] 146/75 Blood Pressure [Right Arm] 127/60 Blood Pressure 130/68 O2 Sat by Pulse Oximetry 98 Intake and Output: Intake & Output 06/12/22 06/13/22 06/14/22 06/15/22 11:59 11:59 11:59 11:59 Intake Total 2133 1608 / 1608 540 / 540 Output Total 200 / 200 0 / 0 Balance 2133 1408 / 1408 540 / 540 - Physical Exam Oriented: Normal Eyes: Normal Ear: Normal Nose: Normal Throat: Normal Respiratory: Diminished Cardiovascular: Other (PACER PRESENT) : Normal Auscultation: Bowel Sounds: Normal Tenderness: Normal Skin: Decreased Turgur, Bruising (RIGHT LATERAL RIBS) Musculoskeletal: Right (RIBS), Back:Thoracic, Back:Lumbar, Motor Deficit (LUE), Sensory Deficit Psychiatric: Normal, Anxiety Mood Description: Appropriate Affect: Normal Speech Pattern: Clear, Appropriate - Laboratory and Diagnostics Result Diagrams: 06/14/22 05:40 06/14/22 05:40 Labs: 06/06/22 12:50 Blood Blood Culture - Final 06/06/22 12:33 Blood Blood Culture - Final Laboratory WBC 5.9 X10^3/uL (3.6-10.0) 06/14/22 05:40 RBC 3.43 X10^6/uL (4.7-6.0) L 06/14/22 05:40 Hgb 10.3 g/dL (13.5-18.0) L 06/14/22 05:40 Hct 30.2 % (42.0-54.0) L 06/14/22 05:40 MCV 88.1 fL (80.0-100.0) 06/14/22 05:40 MCH 30.2 pg (27.0-34.0) 06/14/22 05:40 MCHC 34.3 g/dL (33.0-35.0) 06/14/22 05:40 RDW 15.2 % (11.6-16.5) 06/14/22 05:40 Plt Count 195 X10^3/uL (150.0-450.0) 06/14/22 05:40 Plt Count Comment Adequate (ADEQUATE) 06/08/22 04:45 MPV 8.1 fL (7.4-11.0) 06/14/22 05:40 Neut % (Auto) 56.8 % (42.0-75.0) 06/14/22 05:40 Lymph % (Auto) 26.0 % (21.0-51.0) 06/14/22 05:40 [place] % (Auto) 13.3 % (0.0-13.0) H 06/14/22 05:40 Eos % (Auto) 3.3 % (0.9-2.9) H 06/14/22 05:40 Baso % (Auto) 0.6 % (0.2-1.0) 06/14/22 05:40 Neut # (Auto) 3.3 x10^3/uL (2.2-4.8) 06/14/22 05:40 Lymph # (Auto) 1.5 X10^3/uL (1.3-2.9) 06/14/22 05:40 [place] # (Auto) 0.8 x10^3/uL (0.3-0.8) 06/14/22 05:40 Eos # (Auto) 0.2 x10^3/uL (0.0-0.2) 06/14/22 05:40 Baso # (Auto) 0.0 X10^3/uL (0.0-0.1) 06/14/22 05:40 Absolute Nucleated RBC 0.0 /100WBC 06/14/22 05:40 Total Counted 100 06/08/22 04:45 Neutrophils % (Manual) 63 % (39-76) 06/08/22 04:45 Band Neutrophils % 2 % (0-10) 06/08/22 04:45 Lymphocytes % (Manual) 21 % (13-43) 06/08/22 04:45 Monocytes % (Manual) 6 % (4-9) 06/08/22 04:45 Eosinophils % (Manual) 6 % (0-6) 06/08/22 04:45 Metamyelocytes % 2 06/08/22 04:45 Atypical Lymphocytes Rare 06/08/22 04:45 Plt Morphology Comment Normal (NORMAL) 06/08/22 04:45 RBC Morphology Normal (NORMAL) 06/08/22 04:45 Sodium 139 mmol/L (136-145) 06/14/22 05:40 Corrected Sodium 140 mmol/L (136-145) 06/14/22 05:40 Potassium 4.2 mmol/L (3.5-5.1) 06/14/22 05:40 Chloride 108 mmol/L (98-107) H 06/14/22 05:40 Carbon Dioxide 23.0 mmol/L (21-32) 06/14/22 05:40 BUN 11 mg/dL (7-18) 06/14/22 05:40 Creatinine 1.42 mg/dL (0.70-1.30) H 06/14/22 05:40 Est GFR (MDRD) Af Amer > 60 (>60) 06/14/22 05:40 Est GFR (MDRD) Non-Af 53 (>60) L 06/14/22 05:40 Glucose 123 mg/dL (65-99) H 06/14/22 05:40 POC Glucose (mg/dL) 105 mg/dL (65-99) H 06/13/22 08:15 Calcium 8.4 mg/dL (8.5-10.1) L 06/14/22 05:40 Corrected Calcium 9.5 mg/dL (8.5-10.1) 06/14/22 05:40 Magnesium 2.3 mg/dL (1.7-2.9) 06/06/22 12:33 Total Bilirubin 0.10 mg/dL (0.2-1.0) L 06/14/22 05:40 AST 40 Units/L (15-37) H 06/14/22 05:40 ALT 49 Units/L (12-78) 06/14/22 05:40 Alkaline Phosphatase 104 Units/L (46-116) 06/14/22 05:40 Total Protein 7.7 g/dL (6.4-8.2) 06/14/22 05:40 Albumin 2.6 g/dL (3.4-5.0) L 06/14/22 05:40 Globulin 5.1 g/dL (2.5-4.5) H 06/14/22 05:40 Albumin/Globulin Ratio 0.5 Ratio (1.1-2.1) L 06/14/22 05:40 Specimen Type Clean catch urine 06/06/22 16:58 Urine Color Yellow (YELLOW) 06/06/22 16:58 Urine Appearance Clear (CLEAR) 06/06/22 16:58 Urine pH 6.0 (5.0 - 8.0) 06/06/22 16:58 Ur Specific [place] 1.015 (1.000-1.030) 06/06/22 16:58 Urine Protein Negative (NEGATIVE) 06/06/22 16:58 Urine Glucose (UA) Negative (NEGATIVE) 06/06/22 16:58 Urine Ketones Negative (NEGATIVE) 06/06/22 16:58 Urine Blood Negative (NEGATIVE) 06/06/22 16:58 Urine Nitrite Negative (NEGATIVE) 06/06/22 16:58 Urine Bilirubin Negative (NEGATIVE) 06/06/22 16:58 Urine Urobilinogen Normal (NORMAL) 06/06/22 16:58 Ur Leukocyte Esterase Negative (NEGATIVE) 06/06/22 16:58 SARS-CoV-2 (PCR) Negative (NEGATIVE) 06/06/22 16:58 - Plan (1) Pneumonia Status: Acute Plan: BLOOD AND URINE CULTURES ON ADMISSION, GENTL IV HYDRATION. I&OS, RESP SWAB ON ADMISSION NEGATIVE FOR COVIDRESP THERAPY. IV ATBX THERAPY, VERIFY HOME MEDICATION AND RESUME. BP CONTROL, PT/OT, PAIN CONTROL (2) Right rib fracture Status: Acute (3) UTI (urinary tract infection) Status: Acute (4) Generalized weakness Status: Acute (5) CHF (congestive heart failure), NYHA class II Status: Acute Qualifiers: Congestive heart failure type: unspecified Qualified Code(s): I50.9 - Heart failure, unspecified (6) CVA, old, disturbances of vision Status: Acute (7) Hypertension Status: Chronic Qualifiers: Hypertension type: essential hypertension Qualified Code(s): I10 - Essential (primary) hypertension
[2022-06-14] MEDS: COLACE CAP 100 MG PO SCH (20:47)
[2022-06-14] MEDS: MILK OF MAGNESIA PO SCH (20:47)
[2022-06-15] MEDS: NS 1,000 ML IV 1,000 ML IV SCH ×2 (05:30→08:15)
[2022-06-15 06:10] LABS: ALANINE AMINOTRANSFERASE 41 Units/L (12-78); ALBUMIN 2.5 g/dL (3.4-5.0); ALKALINE PHOSPHATASE 97 Units/L (46-116); ASPARTATE AMINO TRANSFERASE 33 Units/L (15-37); BLOOD UREA NITROGEN 11 mg/dL (7-18); CALCIUM 8.2 mg/dL (8.5-10.1); CARBON DIOXIDE 24.5 mmol/L (21-32); CHLORIDE 108 mmol/L (98-107); COR CA(FOR HYPOALB) 9.4 mg/dL (8.5-10.1); SODIUM 140 mmol/L (136-145); TOTAL PROTEIN 7.5 g/dL (6.4-8.2); eGFR NON BLACK RACES 54 (>60)
[2022-06-15 06:32] LABS: BASOPHILS % (AUTO) 0.9 % (0.2-1.0); EOSINOPHILS # (AUTO) 0.1 x10^3/uL (0.0-0.2); HEMATOCRIT 29.9 % (42.0-54.0); HEMOGLOBIN 10.2 g/dL (13.5-18.0); LYMPHOCYTES # (AUTO) 1.3 X10^3/uL (1.3-2.9); LYMPHOCYTES % (AUTO) 25.4 % (21.0-51.0); MEAN CORPUSCULAR HEMOGLOBIN 30.2 pg (27.0-34.0); MEAN CORPUSCULAR HGB CONC 34.1 g/dL (33.0-35.0); MEAN CORPUSCULAR VOLUME 88.5 fL (80.0-100.0); MEAN PLATELET VOLUME 8.3 fL (7.4-11.0); MONOCYTES # (AUTO) 0.7 x10^3/uL (0.3-0.8); MONOCYTES % (AUTO) 13.6 % (0.0-13.0); NEUTROPHILS # (AUTO) 2.8 x10^3/uL (2.2-4.8); NEUTROPHILS % (AUTO) 57.1 % (42.0-75.0); RED BLOOD COUNT 3.38 X10^6/uL (4.7-6.0); RED CELL DISTRIBUTION WIDTH 15.3 % (11.6-16.5)
[2022-06-15 06:38] LABS: BAND NEUTROPHILS % 2 % (0-10); METAMYELOCYTES % 1; PLATELET MORPHOLOGY COMMENT NORMAL (NORMAL)
[2022-06-15] MEDS: ROCEPHIN VIAL 1 GRAM 1 G in NS 100 ML IV 100 ML IV SCH (08:18)
[2022-06-15] MEDS: SYNTHROID 25 mcg TAB PO SCH (08:19)
[2022-06-15] MEDS: PERIACTIN TAB 4 MG PO SCH (08:19)
[2022-06-15] MEDS: COREG TAB 3.125 MG PO SCH (08:19)
[2022-06-15] MEDS: PROTONIX TAB 40 MG PO SCH (08:19)
[2022-06-15] MEDS: ROBITUSSIN DM PO SCH ×2 (08:19→12:16)
[2022-06-15] MEDS: SINEMET (PLAIN) 25/100 MG PO SCH (08:19)
[2022-06-15] MEDS: LIPITOR TAB 20 MG PO SCH (08:19)
[2022-06-15] MEDS ORDERED: NICOTINE PATCH TD SCH (09:00)
[2022-06-15 11:57] VITALS: BP 139/66
== END 2022-06-15 14:45 ==
LOC: MED/SURG
PROVIDERS: ADMIT Internal Medicine; ATTEND Internal Medicine
DX: I13.0 Hypertensive heart and chronic kidney disease with heart failure and stage 1 through stage 4 chronic kidney disease, or unspecified chronic kidney disease; Z20.822 Contact with and (suspected) exposure to COVID-19; N18.9 Chronic kidney disease, unspecified; S22.31XA Fracture of one rib, right side, initial encounter for closed fracture; R94.31 Abnormal electrocardiogram [ECG] [EKG]; N39.0 Urinary tract infection, site not specified; Z95.0 Presence of cardiac pacemaker; R53.1 Weakness; R26.89 Other abnormalities of gait and mobility; R06.02 Shortness of breath; W18.39XA Other fall on same level, initial encounter; R62.7 Adult failure to thrive; I50.9 Heart failure, unspecified; J18.8 Other pneumonia, unspecified organism; I48.20 Chronic atrial fibrillation, unspecified; I69.354 Hemiplegia and hemiparesis following cerebral infarction affecting left non-dominant side; R13.11 Dysphagia, oral phase